=== PATIENT | male | born 1975 | race Caucasian/White ===

== ENCOUNTER 2017-09-25 14:03 | Inpatient (IN) | payer OTHER, SELFPAY ==
[2017-09-25 14:06] VITALS: BMI 26.6
[2017-09-25] MEDS ORDERED: Sodium Chloride 0.9% 1,000 ML IV STA (15:04)
[2017-09-25 15:39] LABS: VENOUS BLOOD GAS BASE EXCESS -19.5 mmol/L (0.0-2.0); VENOUS BLOOD GAS PCO2 19 mmHg (40-60); VENOUS BLOOD GAS PO2 29 mm/Hg (30-55); VENOUS BLOOD PH 7.17 (7.32-7.43)
[2017-09-25 15:49] LABS: ABG ALLEN TEST YES; ARTERIAL BLOOD GAS HCO3 11.9 mmol/L (21-28); ARTERIAL BLOOD GAS O2 SAT 102.6 % (95-98); ARTERIAL BLOOD GAS PCO2 13 mm/Hg (35-45); ARTERIAL BLOOD GAS PH 7.31 (7.35-7.45); ARTERIAL BLOOD GAS PO2 150 mm/Hg (80-100); ARTERIAL BLOOD GAS TCO2 6.9 mmol/L (22-28)
[2017-09-25] MEDS ORDERED: Thiamine 100 mg/ml Inj IV STA (15:54)
[2017-09-25 16:02] LABS: INR 1.7 (0.9-1.2); PROTHROMBIN TIME 19.2 Seconds (9.8-13.1)
[2017-09-25 16:03] LABS: PARTIAL THROMBOPLASTIN TIME 33.2 Seconds (25.6-37.1)
[2017-09-25 16:24] LABS: BASO % 0.2 % (0.0-2.0); LYMPH % 7.9 % (20.0-40.0); MEAN CELL VOLUME 75.6 fl (80.0-94.0); MEAN CORPUSCULAR HEMOGLOBIN 19.5 pg (27.0-31.0); MEAN CORPUSCULAR HGB CONC 25.8 g/dL (33.0-37.0); MEAN PLATELET VOLUME 9.4 fl (7.2-11.7); MONO # 1.1 K/uL (0.0-0.8); MONO % 9.3 % (0.0-10.0); NEUT # 9.9 K/uL (1.8-7.0); NEUT % 82.6 % (50.0-75.0); NRBC % 0.5 % (0.0-0.0); PLATELET COUNT 170 K/uL (130-400); RBC 1.34 Mil/uL (4.40-5.90)
--- NOTE | 2017-09-25 16:29 | RAD ---
HISTORY: SOB COMPARISON: No prior. FINDINGS: LUNGS: No active pulmonary disease. PLEURA: No significant pleural effusion identified, no pneumothorax apparent. CARDIOVASCULAR: Normal. OSSEOUS STRUCTURES: No significant abnormalities. VISUALIZED UPPER ABDOMEN: Normal. OTHER FINDINGS: None. IMPRESSION: No active disease.
[2017-09-25 16:38] LABS: ALBUMIN 2.3 g/dL (3.5-5.0); ALT/SGPT 27 U/L (21-72); AST/SGOT 56 U/L (17-59); BLOOD UREA NITROGEN 19 mg/dl (9-20); CALCIUM 8.4 mg/dL (8.4-10.2); GFR AFRICAN-AMERICAN > 60; GFR NON-AFRICAN AMERICAN > 60; LIPASE 491 U/L (23-300); MAGNESIUM 2.1 MG/DL (1.6-2.3)
[2017-09-25 16:40] LABS: B-TYPE NATRIURETIC PEPTIDE 212 pg/ml (0-450); HEMOGLOBIN 2.6 g/dL (12.0-18.0)
[2017-09-25 16:44] LABS: ALB/GLOB RATIO 0.7 (1.0-2.1)
[2017-09-25] MEDS ORDERED: metroNIDAZOLE 500mg/100ml NS 100 ML IVPB STA (16:50)
[2017-09-25] MEDS ORDERED: Multivitamin (MVI) 10 ML, Thiamine 100 MG in Sodium Chloride 0.9% 1,000 ML IV ONE (16:53)
[2017-09-25] MEDS ORDERED: Thiamine 100 mg/ml Inj ONE (16:58)
[2017-09-25] MEDS ORDERED: Sodium Chloride 0.9% 1,000 ML IV SCH (17:00)
[2017-09-25] MEDS ORDERED: Dextrose 5%/0.45% NS 1,000 ML IV SCH (17:15)
[2017-09-25] MEDS ORDERED: Phytonadione 10 mg/ml Inj (Adult) IV ONE (17:18)
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
[2017-09-25 18:21] LABS: SQUAMOUS EPITHIAL < 1 /hpf (0-5); URINE BACTERIA RARE (<OCC); URINE BILIRUBIN NEGATIVE (NEGATIVE); URINE BLOOD NEGATIVE (NEGATIVE); URINE CLARITY SLIGHTY-CLOUDY (Clear); URINE COLOR YELLOW (YELLOW); URINE GLUCOSE (UA) NEG (Normal); URINE LEUKOCYTE ESTERASE NEG Leu/uL (Negative); URINE NITRATE NEGATIVE (NEGATIVE); URINE PROTEIN NEGATIVE (NEGATIVE); URINE UROBILINOGEN 0.2-1.0 mg/dL (0.2-1.0)
[2017-09-25 18:22] LABS: BARBITURATES, UR NEGATIVE (NEGATIVE); BENZODIAZEPINES, UR NEGATIVE (NEGATIVE); OPIATES, UR NEGATIVE (NEGATIVE); PHENCYCLIDINE, UR NEGATIVE (NEGATIVE)
--- NOTE | 2017-09-25 18:22 | CP.CCUPN ---
CCU Subjective - Physician Review Subjective (Free Text): Critical Care Consult and ICU admission from ER for UGIB: 42M BIBA for complaints of SOB, generalized weakness, found to have HGB = 2.6 on initial bloodwork, no hypotension or hypoxemia noted and Lactate = 19. Patient admits to chronic ETOH use and drinks daily and stopped approx. 3 days ago due to not feeling well. Denies any change in BMS, i.e. no melena or hematochezia, no N/V, no recent wretching, NSAID use not takes any other meds. Review of past medical records show hospitalization at [facility] in November 2016 for Syncope and left AMA. Given Lactate elevation, underwent Code Sepsis evaluation in the ER. Other vitals and I/O's reviewed. ER VS= 130/60, 111, RR 22, Afebrile, SPO2 100 % on nasal cannula ROS: No other pertinent negs or positives on 10+ system review. PMSFH: All other Nursing and physician documentation reviewed to date; no new pertinent info noted relevant to current medical problems. CXR: ( my interp)- poor inspiratory film, no gross consolidation. IMPRESSION / MAJOR PROBLEMS NOW: 1. Severe Anemia 2 UGI Bleed: r/o ETOH-Gastritis, vs. Variceal Hemorrhage vs. other PUD / Occult CA 2. Lactate Acidosis 2 Alcoholic Ketoacidosis, doubt any Septic physiology 3. Coagulopathy 2 Alcoholic Liver disease 4. Dehydration 5. Chronic Alcoholism PLAN: 1. Start PRBCs, expect initial need for 4 units PRBCs. 2. IVF hydration with Dextrose and Saline. 3. Serial Lactates till normalized. Panculture. Hold on antibiotics unless known site of infection is suspected. 4. Serial serum ketones. 5. GI eval for appropriateness of endoscopy. Interim PPi drip and Octreotide drip. Keep NPO now for the 1st 24H. 6. Vit K, FFP. 7. Ultrasound Abdomen, r/o Pancreatic / biliary tract disease 8. Thiamine, Folic acid supplements. 9. Watch for ETOH-withdrawal symptoms. CCU Objective - Vital Signs / Intake & Output Vital Signs (Last 4 hours): Vital Signs Temp Pulse Resp BP Pulse Ox 09/25/17 17:39 100 09/25/17 17:35 98.1 F 135 H 20 139/67 100 09/25/17 17:34 98.1 F 132 H 20 139/67 100 Intake and Output (Last 8hrs): Intake & Output 09/25/17 09/25/17 09/25/17 06:59 14:59 22:59 Weight 155 lb - Physical Exam Head: Positive for: Atraumatic, Normocephalic Pupils: Positive for: PERRL Extroacular Muscles: Positive for: EOMI Conjunctiva: Positive for: Normal. Negative for: Icteric Mouth: Positive for: Dry Neck: Positive for: Normal Range of Motion. Negative for: JVD Respiratory/Chest: Positive for: Clear to Auscultation, Decreased Breath Sounds. Negative for: Accessory Muscle Use Cardiovascular: Positive for: Regular Rate and Rhythm, Tachycardic. Negative for: Murmurs, Rub Abdomen: Positive for: Normal Bowel Sounds. Negative for: Tenderness, Distention, Mass/Organomegaly Rectal: Positive for: Occult Blood Lower Extremity: Positive for: Edema, NORMAL PULSES. Negative for: CALF TENDERNESS, Cyanosis Neurological: Positive for: GCS=15, Motor Func Grossly Intact, Normal Sensory Function Skin: Positive for: Warm, Dry. Negative for: Rashes Psychiatric: Positive for: Alert, Oriented x 3, Normal Insight, Normal Concentration. Negative for: Agitated - Medications Active Medications: Active Medications Generic Name Dose Route Start Last Admin Trade Name Freq PRN Reason Stop Dose Admin Multivitamins/Vitamin C 10 ml/ 1,011 mls @ 250 mls/hr 09/25/17 16:53 Thiamine HCl 100 mg/ Sodium IV 09/25/17 20:55 Chloride .Q4H3M ONE Dextrose/Sodium Chloride 1,000 mls @ 150 mls/hr 09/25/17 17:15 Dextrose 5%/0.45% Ns 1000 Ml IV 09/26/17 17:16 .Q6H40M PRATEEK Pantoprazole Sodium 40 mg/ 100 mls @ 20 mls/hr 09/25/17 17:45 Sodium Chloride IVPB Q5H PRATEEK 8 MG/HR Octreotide Acetate 1,250 mcg/ 252.5 mls @ 10.1 mls/hr 09/25/17 17:45 Sodium Chloride IV 09/27/17 17:46 .Q24H PRATEEK 50 MCG/HR - Patient Studies Lab Studies: Lab Studies 09/25/17 09/25/17 09/25/17 Range/Units 17:11 16:19 15:40 WBC (4.8-10.8) K/uL RBC (4.40-5.90) Mil/uL Hgb (12.0-18.0) g/dL Hct (35.0-51.0) % MCV (80.0-94.0) fl MCH (27.0-31.0) pg MCHC (33.0-37.0) g/dL RDW (11.5-14.5) % Plt Count (130-400) K/uL MPV (7.2-11.7) fl Neut % (Auto) (50.0-75.0) % Lymph % (Auto) (20.0-40.0) % [place] % (Auto) (0.0-10.0) % Eos % (Auto) (0.0-4.0) % Baso % (Auto) (0.0-2.0) % Neut # (1.8-7.0) K/uL Lymph # (1.0-4.3) K/uL [place] # (0.0-0.8) K/uL Eos # (0.0-0.7) K/uL Baso # (0.0-0.2) K/uL PT (9.8-13.1) Seconds INR (0.9-1.2) APTT (25.6-37.1) Seconds pCO2 13 L* (35-45) mm/Hg pO2 150 H (30-55) mm/Hg HCO3 11.9 L (21-28) mmol/L ABG pH 7.31 L (7.35-7.45) ABG Total CO2 6.9 L (22-28) mmol/L ABG O2 Saturation 102.6 H (95-98) % ABG Base Excess -16.8 L (-2.0-3.0) mmol/L Sanjay Test Yes ABG Potassium 3.5 L (3.6-5.2) mmol/L VBG pH (7.32-7.43) VBG pCO2 (40-60) mmHg VBG HCO3 mmol/L VBG Total CO2 (22-28) mmol/L VBG O2 Sat (Calc) (40-65) % VBG Base Excess (0.0-2.0) mmol/L VBG Potassium (3.6-5.2) mmol/L A-a O2 Difference 119.0 mm/Hg Glucose 175 H (75-110) mg/dL Lactate 19.1 H* (0.7-2.1) mmol/L FiO2 40.0 % Crit Value Called To Dr jason sood Crit Value Called By Rt Crit Value Read Back Y Blood Gas Notified Time 1548 Sodium 136.0 (132-148) mmol/l Potassium (3.6-5.0) MMOL/L Chloride 101.0 (98-107) mmol/L Carbon Dioxide (22-30) mmol/L Anion Gap (10-20) BUN (9-20) mg/dl Creatinine (0.8-1.5) mg/dl Est GFR ( Amer) Est GFR (Non-Af Amer) Random Glucose (75-110) mg/dL Calcium (8.4-10.2) mg/dL Phosphorus (2.5-4.5) mg/dl Magnesium (1.6-2.3) MG/DL Total Bilirubin (0.2-1.3) mg/dl AST (17-59) U/L ALT (21-72) U/L Alkaline Phosphatase (38-126) U/L Ammonia (16-60) umo/L Troponin I (0.00-0.120) ng/mL NT-Pro-B Natriuret Pep (0-450) pg/ml Total Protein (6.3-8.2) G/DL Albumin (3.5-5.0) g/dL Globulin (2.2-3.9) gm/dL Albumin/Globulin Ratio (1.0-2.1) Lipase (23-300) U/L Arterial Blood Potassium 3.5 L (3.6-5.2) mmol/L Venous Blood Potassium (3.6-5.2) mmol/L Urine Color Cancelled Urine Clarity Cancelled Urine pH Cancelled Ur Specific [place] Cancelled Urine Protein Cancelled Urine Glucose (UA) Cancelled Urine Ketones Cancelled Urine Blood Cancelled Urine Nitrate Cancelled Urine Bilirubin Cancelled Urine Urobilinogen Cancelled Ur Leukocyte Esterase Cancelled Urine RBC (Auto) Cancelled Urine WBC Clumps (Auto) Cancelled Urine Microscopic WBC Cancelled Ur Squamous Epith Cells Cancelled Ur Transition Epith Cell Cancelled Ur Renal Epithelial Cell Cancelled Calcium Carbonate Cryst Cancelled Calcium Phos [place] (Auto) Cancelled Calcium Oxalate Crystal Cancelled Leucine Crystals Cancelled Cystine Crystals Cancelled Uric Acid Crystals Cancelled Triple Phos Crystals Cancelled Tyrosine Crystals Cancelled Other Crystals Cancelled Amorphous Sediment Cancelled Urine Bacteria Cancelled Epithelial Casts (Auto) Cancelled Fatty Casts Cancelled Hyaline Casts Cancelled Granular Casts (Auto) Cancelled Waxy Casts Cancelled Broad Casts Cancelled RBC Casts Cancelled WBC Casts Cancelled Other Casts Cancelled Urine Trichomonas Cancelled Ur Yeast w Hyphae Cancelled Urine Yeast (Budding) Cancelled Urine Sperm (Auto) Cancelled Ur Oval Fat Bodies Auto Cancelled Stool Occult Blood Positive H (NEGATIVE) Alcohol, Quantitative (0-10) mg/dl Influenza Typ A,B (EIA) (NEGATIVE) Blood Type Blood Type Confirm A POSITIVE Antibody Screen Crossmatch BBK History Checked 09/25/17 09/25/17 09/25/17 Range/Units 15:30 15:30 15:25 WBC (4.8-10.8) K/uL RBC (4.40-5.90) Mil/uL Hgb (12.0-18.0) g/dL Hct (35.0-51.0) % MCV (80.0-94.0) fl MCH (27.0-31.0) pg MCHC (33.0-37.0) g/dL RDW (11.5-14.5) % Plt Count (130-400) K/uL MPV (7.2-11.7) fl Neut % (Auto) (50.0-75.0) % Lymph % (Auto) (20.0-40.0) % [place] % (Auto) (0.0-10.0) % Eos % (Auto) (0.0-4.0) % Baso % (Auto) (0.0-2.0) % Neut # (1.8-7.0) K/uL Lymph # (1.0-4.3) K/uL [place] # (0.0-0.8) K/uL Eos # (0.0-0.7) K/uL Baso # (0.0-0.2) K/uL PT 19.2 H (9.8-13.1) Seconds INR 1.7 H (0.9-1.2) APTT 33.2 (25.6-37.1) Seconds pCO2 (35-45) mm/Hg pO2 29 L (30-55) mm/Hg HCO3 (21-28) mmol/L ABG pH (7.35-7.45) ABG Total CO2 (22-28) mmol/L ABG O2 Saturation (95-98) % ABG Base Excess (-2.0-3.0) mmol/L Sanjay Test ABG Potassium (3.6-5.2) mmol/L VBG pH 7.17 L* (7.32-7.43) VBG pCO2 19 L* (40-60) mmHg VBG HCO3 8.1 mmol/L VBG Total CO2 7.5 L (22-28) mmol/L VBG O2 Sat (Calc) 52.8 (40-65) % VBG Base Excess -19.5 L (0.0-2.0) mmol/L VBG Potassium 3.5 L (3.6-5.2) mmol/L A-a O2 Difference mm/Hg Glucose 179 H (75-110) mg/dL Lactate > 20.0 H* (0.7-2.1) mmol/L FiO2 21.0 % Crit Value Called To Dr jason sood Crit Value Called By Rt Crit Value Read Back Y Blood Gas Notified Time 1538 Sodium 137.0 (132-148) mmol/l Potassium (3.6-5.0) MMOL/L Chloride 100.0 (98-107) mmol/L Carbon Dioxide (22-30) mmol/L Anion Gap (10-20) BUN (9-20) mg/dl Creatinine (0.8-1.5) mg/dl Est GFR ( Amer) Est GFR (Non-Af Amer) Random Glucose (75-110) mg/dL Calcium (8.4-10.2) mg/dL Phosphorus (2.5-4.5) mg/dl Magnesium (1.6-2.3) MG/DL Total Bilirubin (0.2-1.3) mg/dl AST (17-59) U/L ALT (21-72) U/L Alkaline Phosphatase (38-126) U/L Ammonia (16-60) umo/L Troponin I (0.00-0.120) ng/mL NT-Pro-B Natriuret Pep (0-450) pg/ml Total Protein (6.3-8.2) G/DL Albumin (3.5-5.0) g/dL Globulin (2.2-3.9) gm/dL Albumin/Globulin Ratio (1.0-2.1) Lipase (23-300) U/L Arterial Blood Potassium (3.6-5.2) mmol/L Venous Blood Potassium 3.5 L (3.6-5.2) mmol/L Urine Color Urine Clarity Urine pH Ur Specific [place] Urine Protein Urine Glucose (UA) Urine Ketones Urine Blood Urine Nitrate Urine Bilirubin Urine Urobilinogen Ur Leukocyte Esterase Urine RBC (Auto) Urine WBC Clumps (Auto) Urine Microscopic WBC Ur Squamous Epith Cells Ur Transition Epith Cell Ur Renal Epithelial Cell Calcium Carbonate Cryst Calcium Phos [place] (Auto) Calcium Oxalate Crystal Leucine Crystals Cystine Crystals Uric Acid Crystals Triple Phos Crystals Tyrosine Crystals Other Crystals Amorphous Sediment Urine Bacteria Epithelial Casts (Auto) Fatty Casts Hyaline Casts Granular Casts (Auto) Waxy Casts Broad Casts RBC Casts WBC Casts Other Casts Urine Trichomonas Ur Yeast w Hyphae Urine Yeast (Budding) Urine Sperm (Auto) Ur Oval Fat Bodies Auto Stool Occult Blood (NEGATIVE) Alcohol, Quantitative (0-10) mg/dl Influenza Typ A,B (EIA) Negative for flu a/b (NEGATIVE) Blood Type Blood Type Confirm Antibody Screen Crossmatch BBK History Checked 09/25/17 09/25/17 09/25/17 Range/Units 15:25 15:25 15:25 WBC 12.0 H (4.8-10.8) K/uL RBC 1.34 L (4.40-5.90) Mil/uL Hgb 2.6 L* (12.0-18.0) g/dL Hct 10.1 L (35.0-51.0) % MCV 75.6 L (80.0-94.0) fl MCH 19.5 L (27.0-31.0) pg MCHC 25.8 L (33.0-37.0) g/dL RDW 22.0 H (11.5-14.5) % Plt Count 170 (130-400) K/uL MPV 9.4 (7.2-11.7) fl Neut % (Auto) 82.6 H (50.0-75.0) % Lymph % (Auto) 7.9 L (20.0-40.0) % [place] % (Auto) 9.3 (0.0-10.0) % Eos % (Auto) 0.0 (0.0-4.0) % Baso % (Auto) 0.2 (0.0-2.0) % Neut # 9.9 H (1.8-7.0) K/uL Lymph # 1.0 (1.0-4.3) K/uL [place] # 1.1 H (0.0-0.8) K/uL Eos # 0.0 (0.0-0.7) K/uL Baso # 0.0 (0.0-0.2) K/uL PT (9.8-13.1) Seconds INR (0.9-1.2) APTT (25.6-37.1) Seconds pCO2 (35-45) mm/Hg pO2 (30-55) mm/Hg HCO3 (21-28) mmol/L ABG pH (7.35-7.45) ABG Total CO2 (22-28) mmol/L ABG O2 Saturation (95-98) % ABG Base Excess (-2.0-3.0) mmol/L Sanjay Test ABG Potassium (3.6-5.2) mmol/L VBG pH (7.32-7.43) VBG pCO2 (40-60) mmHg VBG HCO3 mmol/L VBG Total CO2 (22-28) mmol/L VBG O2 Sat (Calc) (40-65) % VBG Base Excess (0.0-2.0) mmol/L VBG Potassium (3.6-5.2) mmol/L A-a O2 Difference mm/Hg Glucose (75-110) mg/dL Lactate (0.7-2.1) mmol/L FiO2 % Crit Value Called To Crit Value Called By Crit Value Read Back Blood Gas Notified Time Sodium 138 (132-148) mmol/l Potassium 3.8 (3.6-5.0) MMOL/L Chloride 105 (98-107) mmol/L Carbon Dioxide 5 L* (22-30) mmol/L Anion Gap 32 H (10-20) BUN 19 (9-20) mg/dl Creatinine 0.9 (0.8-1.5) mg/dl Est GFR ( Amer) > 60 Est GFR (Non-Af Amer) > 60 Random Glucose 164 H (75-110) mg/dL Calcium 8.4 (8.4-10.2) mg/dL Phosphorus 5.3 H (2.5-4.5) mg/dl Magnesium 2.1 (1.6-2.3) MG/DL Total Bilirubin 1.9 H (0.2-1.3) mg/dl AST 56 (17-59) U/L ALT 27 (21-72) U/L Alkaline Phosphatase 119 (38-126) U/L Ammonia 49 (16-60) umo/L Troponin I 0.0490 (0.00-0.120) ng/mL NT-Pro-B Natriuret Pep 212 (0-450) pg/ml Total Protein 5.8 L (6.3-8.2) G/DL Albumin 2.3 L (3.5-5.0) g/dL Globulin 3.5 (2.2-3.9) gm/dL Albumin/Globulin Ratio 0.7 L (1.0-2.1) Lipase 491 H (23-300) U/L Arterial Blood Potassium (3.6-5.2) mmol/L Venous Blood Potassium (3.6-5.2) mmol/L Urine Color Urine Clarity Urine pH Ur Specific [place] Urine Protein Urine Glucose (UA) Urine Ketones Urine Blood Urine Nitrate Urine Bilirubin Urine Urobilinogen Ur Leukocyte Esterase Urine RBC (Auto) Urine WBC Clumps (Auto) Urine Microscopic WBC Ur Squamous Epith Cells Ur Transition Epith Cell Ur Renal Epithelial Cell Calcium Carbonate Cryst Calcium Phos [place] (Auto) Calcium Oxalate Crystal Leucine Crystals Cystine Crystals Uric Acid Crystals Triple Phos Crystals Tyrosine Crystals Other Crystals Amorphous Sediment Urine Bacteria Epithelial Casts (Auto) Fatty Casts Hyaline Casts Granular Casts (Auto) Waxy Casts Broad Casts RBC Casts WBC Casts Other Casts Urine Trichomonas Ur Yeast w Hyphae Urine Yeast (Budding) Urine Sperm (Auto) Ur Oval Fat Bodies Auto Stool Occult Blood (NEGATIVE) Alcohol, Quantitative < 10 (0-10) mg/dl Influenza Typ A,B (EIA) (NEGATIVE) Blood Type Blood Type Confirm Antibody Screen Crossmatch BBK History Checked 09/25/17 Range/Units 15:20 WBC (4.8-10.8) K/uL RBC (4.40-5.90) Mil/uL Hgb (12.0-18.0) g/dL Hct (35.0-51.0) % MCV (80.0-94.0) fl MCH (27.0-31.0) pg MCHC (33.0-37.0) g/dL RDW (11.5-14.5) % Plt Count (130-400) K/uL MPV (7.2-11.7) fl Neut % (Auto) (50.0-75.0) % Lymph % (Auto) (20.0-40.0) % [place] % (Auto) (0.0-10.0) % Eos % (Auto) (0.0-4.0) % Baso % (Auto) (0.0-2.0) % Neut # (1.8-7.0) K/uL Lymph # (1.0-4.3) K/uL [place] # (0.0-0.8) K/uL Eos # (0.0-0.7) K/uL Baso # (0.0-0.2) K/uL PT (9.8-13.1) Seconds INR (0.9-1.2) APTT (25.6-37.1) Seconds pCO2 (35-45) mm/Hg pO2 (30-55) mm/Hg HCO3 (21-28) mmol/L ABG pH (7.35-7.45) ABG Total CO2 (22-28) mmol/L ABG O2 Saturation (95-98) % ABG Base Excess (-2.0-3.0) mmol/L Sanjay Test ABG Potassium (3.6-5.2) mmol/L VBG pH (7.32-7.43) VBG pCO2 (40-60) mmHg VBG HCO3 mmol/L VBG Total CO2 (22-28) mmol/L VBG O2 Sat (Calc) (40-65) % VBG Base Excess (0.0-2.0) mmol/L VBG Potassium (3.6-5.2) mmol/L A-a O2 Difference mm/Hg Glucose (75-110) mg/dL Lactate (0.7-2.1) mmol/L FiO2 % Crit Value Called To Crit Value Called By Crit Value Read Back Blood Gas Notified Time Sodium (132-148) mmol/l Potassium (3.6-5.0) MMOL/L Chloride (98-107) mmol/L Carbon Dioxide (22-30) mmol/L Anion Gap (10-20) BUN (9-20) mg/dl Creatinine (0.8-1.5) mg/dl Est GFR ( Amer) Est GFR (Non-Af Amer) Random Glucose (75-110) mg/dL Calcium (8.4-10.2) mg/dL Phosphorus (2.5-4.5) mg/dl Magnesium (1.6-2.3) MG/DL Total Bilirubin (0.2-1.3) mg/dl AST (17-59) U/L ALT (21-72) U/L Alkaline Phosphatase (38-126) U/L Ammonia (16-60) umo/L Troponin I (0.00-0.120) ng/mL NT-Pro-B Natriuret Pep (0-450) pg/ml Total Protein (6.3-8.2) G/DL Albumin (3.5-5.0) g/dL Globulin (2.2-3.9) gm/dL Albumin/Globulin Ratio (1.0-2.1) Lipase (23-300) U/L Arterial Blood Potassium (3.6-5.2) mmol/L Venous Blood Potassium (3.6-5.2) mmol/L Urine Color Urine Clarity Urine pH Ur Specific [place] Urine Protein Urine Glucose (UA) Urine Ketones Urine Blood Urine Nitrate Urine Bilirubin Urine Urobilinogen Ur Leukocyte Esterase Urine RBC (Auto) Urine WBC Clumps (Auto) Urine Microscopic WBC Ur Squamous Epith Cells Ur Transition Epith Cell Ur Renal Epithelial Cell Calcium Carbonate Cryst Calcium Phos [place] (Auto) Calcium Oxalate Crystal Leucine Crystals Cystine Crystals Uric Acid Crystals Triple Phos Crystals Tyrosine Crystals Other Crystals Amorphous Sediment Urine Bacteria Epithelial Casts (Auto) Fatty Casts Hyaline Casts Granular Casts (Auto) Waxy Casts Broad Casts RBC Casts WBC Casts Other Casts Urine Trichomonas Ur Yeast w Hyphae Urine Yeast (Budding) Urine Sperm (Auto) Ur Oval Fat Bodies Auto Stool Occult Blood (NEGATIVE) Alcohol, Quantitative (0-10) mg/dl Influenza Typ A,B (EIA) (NEGATIVE) Blood Type A POSITIVE Blood Type Confirm Antibody Screen Negative Crossmatch See Detail BBK History Checked No verified bt Laboratory Results - last 24 hr 09/25/17 09/25/17 09/25/17 15:20 15:25 15:25 WBC 12.0 H RBC 1.34 L Hgb 2.6 L* Hct 10.1 L MCV 75.6 L MCH 19.5 L MCHC 25.8 L RDW 22.0 H Plt Count 170 MPV 9.4 Neut % (Auto) 82.6 H Lymph % (Auto) 7.9 L [place] % (Auto) 9.3 Eos % (Auto) 0.0 Baso % (Auto) 0.2 Neut # 9.9 H Lymph # 1.0 [place] # 1.1 H Eos # 0.0 Baso # 0.0 PT INR APTT pCO2 pO2 HCO3 ABG pH ABG Total CO2 ABG O2 Saturation ABG Base Excess Sanjay Test ABG Potassium VBG pH VBG pCO2 VBG HCO3 VBG Total CO2 VBG O2 Sat (Calc) VBG Base Excess VBG Potassium A-a O2 Difference Glucose Lactate FiO2 Crit Value Called To Crit Value Called By Crit Value Read Back Blood Gas Notified Time Sodium 138 Potassium 3.8 Chloride 105 Carbon Dioxide 5 L* Anion Gap 32 H BUN 19 Creatinine 0.9 Est GFR ( Amer) > 60 Est GFR (Non-Af Amer) > 60 Random Glucose 164 H Calcium 8.4 Phosphorus 5.3 H Magnesium 2.1 Total Bilirubin 1.9 H AST 56 ALT 27 Alkaline Phosphatase 119 Ammonia Troponin I 0.0490 NT-Pro-B Natriuret Pep 212 Total Protein 5.8 L Albumin 2.3 L Globulin 3.5 Albumin/Globulin Ratio 0.7 L Lipase 491 H Arterial Blood Potassium Venous Blood Potassium Urine Color Urine Clarity Urine pH Ur Specific [place] Urine Protein Urine Glucose (UA) Urine Ketones Urine Blood Urine Nitrate Urine Bilirubin Urine Urobilinogen Ur Leukocyte Esterase Urine RBC (Auto) Urine WBC Clumps (Auto) Urine Microscopic WBC Ur Squamous Epith Cells Ur Transition Epith Cell Ur Renal Epithelial Cell Calcium Carbonate Cryst Calcium Phos [place] (Auto) Calcium Oxalate Crystal Leucine Crystals Cystine Crystals Uric Acid Crystals Triple Phos Crystals Tyrosine Crystals Other Crystals Amorphous Sediment Urine Bacteria Epithelial Casts (Auto) Fatty Casts Hyaline Casts Granular Casts (Auto) Waxy Casts Broad Casts RBC Casts WBC Casts Other Casts Urine Trichomonas Ur Yeast w Hyphae Urine Yeast (Budding) Urine Sperm (Auto) Ur Oval Fat Bodies Auto Stool Occult Blood Alcohol, Quantitative < 10 Influenza Typ A,B (EIA) Blood Type A POSITIVE Blood Type Confirm Antibody Screen Negative Crossmatch See Detail BBK History Checked No verified bt 09/25/17 09/25/17 09/25/17 15:25 15:25 15:30 WBC RBC Hgb Hct MCV MCH MCHC RDW Plt Count MPV Neut % (Auto) Lymph % (Auto) [place] % (Auto) Eos % (Auto) Baso % (Auto) Neut # Lymph # [place] # Eos # Baso # PT 19.2 H INR 1.7 H APTT 33.2 pCO2 pO2 HCO3 ABG pH ABG Total CO2 ABG O2 Saturation ABG Base Excess Sanjay Test ABG Potassium VBG pH VBG pCO2 VBG HCO3 VBG Total CO2 VBG O2 Sat (Calc) VBG Base Excess VBG Potassium A-a O2 Difference Glucose Lactate FiO2 Crit Value Called To Crit Value Called By Crit Value Read Back Blood Gas Notified Time Sodium Potassium Chloride Carbon Dioxide Anion Gap BUN Creatinine Est GFR ( Amer) Est GFR (Non-Af Amer) Random Glucose Calcium Phosphorus Magnesium Total Bilirubin AST ALT Alkaline Phosphatase Ammonia 49 Troponin I NT-Pro-B Natriuret Pep Total Protein Albumin Globulin Albumin/Globulin Ratio Lipase Arterial Blood Potassium Venous Blood Potassium Urine Color Urine Clarity Urine pH Ur Specific [place] Urine Protein Urine Glucose (UA) Urine Ketones Urine Blood Urine Nitrate Urine Bilirubin Urine Urobilinogen Ur Leukocyte Esterase Urine RBC (Auto) Urine WBC Clumps (Auto) Urine Microscopic WBC Ur Squamous Epith Cells Ur Transition Epith Cell Ur Renal Epithelial Cell Calcium Carbonate Cryst Calcium Phos [place] (Auto) Calcium Oxalate Crystal Leucine Crystals Cystine Crystals Uric Acid Crystals Triple Phos Crystals Tyrosine Crystals Other Crystals Amorphous Sediment Urine Bacteria Epithelial Casts (Auto) Fatty Casts Hyaline Casts Granular Casts (Auto) Waxy Casts Broad Casts RBC Casts WBC Casts Other Casts Urine Trichomonas Ur Yeast w Hyphae Urine Yeast (Budding) Urine Sperm (Auto) Ur Oval Fat Bodies Auto Stool Occult Blood Alcohol, Quantitative Influenza Typ A,B (EIA) Negative for flu a/b Blood Type Blood Type Confirm Antibody Screen Crossmatch BBK History Checked 09/25/17 09/25/17 09/25/17 15:30 15:40 16:19 WBC RBC Hgb Hct MCV MCH MCHC RDW Plt Count MPV Neut % (Auto) Lymph % (Auto) [place] % (Auto) Eos % (Auto) Baso % (Auto) Neut # Lymph # [place] # Eos # Baso # PT INR APTT pCO2 13 L* pO2 29 L 150 H HCO3 11.9 L ABG pH 7.31 L ABG Total CO2 6.9 L ABG O2 Saturation 102.6 H ABG Base Excess -16.8 L Sanjay Test Yes ABG Potassium 3.5 L VBG pH 7.17 L* VBG pCO2 19 L* VBG HCO3 8.1 VBG Total CO2 7.5 L VBG O2 Sat (Calc) 52.8 VBG Base Excess -19.5 L VBG Potassium 3.5 L A-a O2 Difference 119.0 Glucose 179 H 175 H Lactate > 20.0 H* 19.1 H* FiO2 21.0 40.0 Crit Value Called To Dr jason sood Crit Value Called By Rt Rt Crit Value Read Back Y Y Blood Gas Notified Time 1538 1548 Sodium 137.0 136.0 Potassium Chloride 100.0 101.0 Carbon Dioxide Anion Gap BUN Creatinine Est GFR ( Amer) Est GFR (Non-Af Amer) Random Glucose Calcium Phosphorus Magnesium Total Bilirubin AST ALT Alkaline Phosphatase Ammonia Troponin I NT-Pro-B Natriuret Pep Total Protein Albumin Globulin Albumin/Globulin Ratio Lipase Arterial Blood Potassium 3.5 L Venous Blood Potassium 3.5 L Urine Color Urine Clarity Urine pH Ur Specific [place] Urine Protein Urine Glucose (UA) Urine Ketones Urine Blood Urine Nitrate Urine Bilirubin Urine Urobilinogen Ur Leukocyte Esterase Urine RBC (Auto) Urine WBC Clumps (Auto) Urine Microscopic WBC Ur Squamous Epith Cells Ur Transition Epith Cell Ur Renal Epithelial Cell Calcium Carbonate Cryst Calcium Phos [place] (Auto) Calcium Oxalate Crystal Leucine Crystals Cystine Crystals Uric Acid Crystals Triple Phos Crystals Tyrosine Crystals Other Crystals Amorphous Sediment Urine Bacteria Epithelial Casts (Auto) Fatty Casts Hyaline Casts Granular Casts (Auto) Waxy Casts Broad Casts RBC Casts WBC Casts Other Casts Urine Trichomonas Ur Yeast w Hyphae Urine Yeast (Budding) Urine Sperm (Auto) Ur Oval Fat Bodies Auto Stool Occult Blood Alcohol, Quantitative Influenza Typ A,B (EIA) Blood Type Blood Type Confirm A POSITIVE Antibody Screen Crossmatch BBK History Checked 09/25/17 17:11 WBC RBC Hgb Hct MCV MCH MCHC RDW Plt Count MPV Neut % (Auto) Lymph % (Auto) [place] % (Auto) Eos % (Auto) Baso % (Auto) Neut # Lymph # [place] # Eos # Baso # PT INR APTT pCO2 pO2 HCO3 ABG pH ABG Total CO2 ABG O2 Saturation ABG Base Excess Sanjay Test ABG Potassium VBG pH VBG pCO2 VBG HCO3 VBG Total CO2 VBG O2 Sat (Calc) VBG Base Excess VBG Potassium A-a O2 Difference Glucose Lactate FiO2 Crit Value Called To Crit Value Called By Crit Value Read Back Blood Gas Notified Time Sodium Potassium Chloride Carbon Dioxide Anion Gap BUN Creatinine Est GFR ( Amer) Est GFR (Non-Af Amer) Random Glucose Calcium Phosphorus Magnesium Total Bilirubin AST ALT Alkaline Phosphatase Ammonia Troponin I NT-Pro-B Natriuret Pep Total Protein Albumin Globulin Albumin/Globulin Ratio Lipase Arterial Blood Potassium Venous Blood Potassium Urine Color Cancelled Urine Clarity Cancelled Urine pH Cancelled Ur Specific [place] Cancelled Urine Protein Cancelled Urine Glucose (UA) Cancelled Urine Ketones Cancelled Urine Blood Cancelled Urine Nitrate Cancelled Urine Bilirubin Cancelled Urine Urobilinogen Cancelled Ur Leukocyte Esterase Cancelled Urine RBC (Auto) Cancelled Urine WBC Clumps (Auto) Cancelled Urine Microscopic WBC Cancelled Ur Squamous Epith Cells Cancelled Ur Transition Epith Cell Cancelled Ur Renal Epithelial Cell Cancelled Calcium Carbonate Cryst Cancelled Calcium Phos [place] (Auto) Cancelled Calcium Oxalate Crystal Cancelled Leucine Crystals Cancelled Cystine Crystals Cancelled Uric Acid Crystals Cancelled Triple Phos Crystals Cancelled Tyrosine Crystals Cancelled Other Crystals Cancelled Amorphous Sediment Cancelled Urine Bacteria Cancelled Epithelial Casts (Auto) Cancelled Fatty Casts Cancelled Hyaline Casts Cancelled Granular Casts (Auto) Cancelled Waxy Casts Cancelled Broad Casts Cancelled RBC Casts Cancelled WBC Casts Cancelled Other Casts Cancelled Urine Trichomonas Cancelled Ur Yeast w Hyphae Cancelled Urine Yeast (Budding) Cancelled Urine Sperm (Auto) Cancelled Ur Oval Fat Bodies Auto Cancelled Stool Occult Blood Positive H Alcohol, Quantitative Influenza Typ A,B (EIA) Blood Type Blood Type Confirm Antibody Screen Crossmatch BBK History Checked Radiology Interpretations (Free Text): See above Critical Care Progress Note - Nutrition Nutrition: Nutrition Category Date Time Status NPO Diet [DIET] Diets 09/25/17 Dinner Active
[2017-09-25 18:30] LABS: ANISOCYTOSIS MARKED; BANDS 2 % (0-2); BASOPHIL 1 % (0-2); LYMPHOCYTE 11 % (20-50); MONOCYTE 10 % (0-10); NEUTROPHIL 76 % (42-75); PLATELET ESTIMATE NORMAL (NORMAL); POIKILOCYTOSIS MODERATE; TOTAL CELLS COUNTED 100
[2017-09-25 18:31] LABS: HYPOCHROMIC MODERATE; LARGE PLATELETS PRESENT; MICROCYTOSIS MARKED; OVALOCYTES SLIGHT; SCHISTOCYTES SLIGHT; TARGET CELLS MODERATE
[2017-09-25] MEDS ORDERED: Vancomycin 1 g Inj ONE (18:31)
--- NOTE | 2017-09-25 18:47 | US ---
HISTORY: rule out pancreatic/gallbladder disease COMPARISON: None. TECHNIQUE: Sonographic evaluation of the abdomen. FINDINGS: LIVER: Measures 19.6 cm. Portal flow could not be documented. . Unremarkeable echogenicity of the liver parenchyma. No mass. No intrahepatic bile duct dilatation. GALLBLADDER: Unremarkable. No gallstones. Gallbladder wall thickening is primarily related to the decompressed, collapsed state of the gallbladder. COMMON BILE DUCT: Measures 6.4 mm. No stones. No dilatation. PANCREAS: Cystic mass retroperitoneum in the expected location of the pancreas. The mass contains cystic components measures 11.6 x 14.2 cm and contains debris which layers in the mass. Although cystic neoplasm should be considered, infectious/inflammatory process ease are more likely. Pancreatic pseudocyst should also be considered. RIGHT KIDNEY: Measures 4.7 x 12.1cm. Normal echogenicity. No calculus, mass, or hydronephrosis. LEFT KIDNEY: Measures 5.5 x 11.5cm. Normal echogenicity. No calculus, mass, or hydronephrosis. SPLEEN: Normal in size and contour. No mass. AORTA: No aneurysmal dilatation. IVC: Unremarkable. OTHER FINDINGS: Low volume intra-abdominal ascites identified primarily about the liver, subhepatic space. IMPRESSION: 1. 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 Infectious, inflammatory etiology should be considered, less likely would be cystic pancreatic neoplasm. She 2. Hepatomegaly without focal hepatic mass. 3. Low volume incompletely visualized at ascites. 4. Portal venous flow could not be documented. Recommendations: Multiphasic CT scan be foreign after administration of contrast recommended.
--- NOTE | 2017-09-25 20:24 | CP.PCM.HP ---
History of Present Illness - History of Present Illness History of Present Illness: 42 y/o male with PMH heavy ETOH abuse was brought to ER for evaluation by family for weakness, jaundice and SOB. As per patient and family he drinks every day large quantity of hard liqueur and beer abut stopped drinking last couple of days due to weakness and because he was not feeling well.He denies any nausea, vomiting, hematemesis, melena, has had diarrhea last couple of days , denies any abdominal pain , has no appetite and feels weak. States that has noticed his color is more yellow and his abdomen is more distended than usual.Denies any chest pain , palpittaions, has SOB, denies any cough or sputum production . Denies fever , chills . In ER patient found to have Hgb 2.6 lactate 19 total melisa 1.9 INR 1.7 HCO3 5 Guaic positive Abd US ;1. 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 Infectious, inflammatory etiology should be considered, less likely would be cystic pancreatic neoplasm. She 2. Hepatomegaly without focal hepatic mass. 3. Low volume incompletely visualized at ascites. 4. Portal venous flow could not be documented. Patient with guarded prognosis to be admitted in ICU Allergies ; iodine,PCN PMH ; ETOH abuse for many years Medications ; None Surgery ; None Family history Social history ; lives in [place] in a multi family home with brother and parents, smokes rarely, drinks daily rum and beer, denies any drug abuse, does not work PMD ; None Surrogate decision maker : Brother Titus [id number] Code status: full code Present on Admission - Present on Admission Any Indicators Present on Admission: No Past Patient History - Infectious Disease Hx of Infectious Diseases: None - Past Medical History & Family History Past Medical History?: Yes Past Family History: Reviewed and not pertinent - Past Social History Smoking Status: Current Some Days Smoker Chewing Tobacco Use: No Cigar Use: No Alcohol: > 2 Drinks/Day Drugs: Denies Home Situation {Lives}: With Family Domestic Violence: Negative - CARDIAC Hx Cardiac Disorders: (Denies) - PULMONARY Hx Respiratory Disorders: (Denies) - PSYCHIATRIC Hx Substance Use: No - SURGICAL HISTORY Hx Surgeries: No Meds Allergies/Adverse Reactions: Allergies Allergy/AdvReac Type Severity Reaction Status Date / Time iodine Allergy RASH Verified 09/25/17 14:07 Penicillins Allergy RASH Verified 09/25/17 14:07 Physical Exam - Constitutional Appears: Chronically Ill Additional comments: jaundiced in mild respiratory distress - Head Exam Head Exam: ATRAUMATIC, NORMAL INSPECTION, NORMOCEPHALIC - Eye Exam Eye Exam: EOMI, Normal appearance, PERRL Pupil Exam: NORMAL ACCOMODATION - ENT Exam ENT Exam: Mucous Membranes Dry, Normal Exam - Neck Exam Neck exam: Positive for: Full Rom, Normal Inspection - Respiratory Exam Respiratory Exam: Decreased Breath Sounds (bibasilar ), Respiratory Distress. absent: Rhonchi, Wheezes - Cardiovascular Exam Cardiovascular Exam: Tachycardia, RRR, +S1, +S2. absent: JVD - GI/Abdominal Exam GI & Abdominal Exam: Distended, Normal Bowel Sounds, Soft. absent: Guarding, Rebound, Tenderness - Rectal Exam Rectal Exam: Deferred - Extremities Exam Extremities exam: Positive for: normal capillary refill, normal inspection, pedal pulses present. Negative for: calf tenderness, pedal edema - Neurological Exam Neurological exam: Alert, CN II-XII Intact, Oriented x3 - Psychiatric Exam Psychiatric exam: Normal Affect, Normal Mood - Skin Skin Exam: Dry Additional comments: jaundiced Results - Vital Signs Recent Vital Signs: Last Vital Signs Temp 96.6 F L 09/25/17 18:53 Pulse 131 H 09/25/17 18:53 Resp 34 H 09/25/17 18:53 BP 117/68 09/25/17 18:53 Pulse Ox 100 09/25/17 18:53 - Labs Result Diagrams: 09/25/17 15:25 09/25/17 15:25 Labs: Laboratory Results - last 24 hr 09/25/17 09/25/17 09/25/17 15:20 15:25 15:25 WBC 12.0 H RBC 1.34 L Hgb 2.6 L* Hct 10.1 L MCV 75.6 L MCH 19.5 L MCHC 25.8 L RDW 22.0 H Plt Count 170 MPV 9.4 Neut % (Auto) 82.6 H Lymph % (Auto) 7.9 L Noble % (Auto) 9.3 Eos % (Auto) 0.0 Baso % (Auto) 0.2 Neut # 9.9 H Lymph # 1.0 Noble # 1.1 H Eos # 0.0 Baso # 0.0 Neutrophils % (Manual) 76 H Band Neutrophils % 2 Lymphocytes % (Manual) 11 L Monocytes % (Manual) 10 Basophils % (Manual) 1 Platelet Estimate Normal Large Platelets Present Hypochromasia (manual) Moderate Poikilocytosis (manual Moderate Anisocytosis (manual) Marked Microcytosis (manual) Marked Target Cells Moderate Ovalocytes Slight Schistocytes Slight PT INR APTT pCO2 pO2 HCO3 ABG pH ABG Total CO2 ABG O2 Saturation ABG Base Excess Sanjay Test ABG Potassium VBG pH VBG pCO2 VBG HCO3 VBG Total CO2 VBG O2 Sat (Calc) VBG Base Excess VBG Potassium A-a O2 Difference Glucose Lactate FiO2 Crit Value Called To Crit Value Called By Crit Value Read Back Blood Gas Notified Time Sodium 138 Potassium 3.8 Chloride 105 Carbon Dioxide 5 L* Anion Gap 32 H BUN 19 Creatinine 0.9 Est GFR ( Amer) > 60 Est GFR (Non-Af Amer) > 60 Random Glucose 164 H Serum Osmolality Calcium 8.4 Phosphorus 5.3 H Magnesium 2.1 Total Bilirubin 1.9 H AST 56 ALT 27 Alkaline Phosphatase 119 Ammonia Troponin I 0.0490 NT-Pro-B Natriuret Pep 212 Total Protein 5.8 L Albumin 2.3 L Globulin 3.5 Albumin/Globulin Ratio 0.7 L Lipase 491 H Arterial Blood Potassium Venous Blood Potassium Urine Color Urine Clarity Urine pH Ur Specific Macy Urine Protein Urine Glucose (UA) Urine Ketones Urine Blood Urine Nitrate Urine Bilirubin Urine Urobilinogen Ur Leukocyte Esterase Urine RBC (Auto) Urine WBC Clumps (Auto) Urine Microscopic WBC Ur Squamous Epith Cells Ur Transition Epith Cell Ur Renal Epithelial Cell Calcium Carbonate Cryst Calcium Phos Courtney (Auto) Calcium Oxalate Crystal Leucine Crystals Cystine Crystals Uric Acid Crystals Triple Phos Crystals Tyrosine Crystals Other Crystals Amorphous Sediment Urine Bacteria Epithelial Casts (Auto) Fatty Casts Hyaline Casts Granular Casts (Auto) Waxy Casts Broad Casts RBC Casts WBC Casts Other Casts Urine Trichomonas Ur Yeast w Hyphae Urine Yeast (Budding) Urine Sperm (Auto) Ur Oval Fat Bodies Auto Ur Random Sodium Ur Random Potassium Stool Occult Blood Urine Opiates Screen Urine Methadone Screen Ur Barbiturates Screen Ur Phencyclidine Scrn Ur Amphetamines Screen U Benzodiazepines Scrn U Oth Cocaine Metabols U Cannabinoids Screen Alcohol, Quantitative < 10 Influenza Typ A,B (EIA) Blood Type A POSITIVE Blood Type Confirm Antibody Screen Negative Crossmatch See Detail BBK History Checked No verified bt 09/25/17 09/25/17 09/25/17 15:25 15:25 15:30 WBC RBC Hgb Hct MCV MCH MCHC RDW Plt Count MPV Neut % (Auto) Lymph % (Auto) Noble % (Auto) Eos % (Auto) Baso % (Auto) Neut # Lymph # Noble # Eos # Baso # Neutrophils % (Manual) Band Neutrophils % Lymphocytes % (Manual) Monocytes % (Manual) Basophils % (Manual) Platelet Estimate Large Platelets Hypochromasia (manual) Poikilocytosis (manual Anisocytosis (manual) Microcytosis (manual) Target Cells Ovalocytes Schistocytes PT 19.2 H INR 1.7 H APTT 33.2 pCO2 pO2 HCO3 ABG pH ABG Total CO2 ABG O2 Saturation ABG Base Excess Sanjay Test ABG Potassium VBG pH VBG pCO2 VBG HCO3 VBG Total CO2 VBG O2 Sat (Calc) VBG Base Excess VBG Potassium A-a O2 Difference Glucose Lactate FiO2 Crit Value Called To Crit Value Called By Crit Value Read Back Blood Gas Notified Time Sodium Potassium Chloride Carbon Dioxide Anion Gap BUN Creatinine Est GFR ( Amer) Est GFR (Non-Af Amer) Random Glucose Serum Osmolality Calcium Phosphorus Magnesium Total Bilirubin AST ALT Alkaline Phosphatase Ammonia 49 Troponin I NT-Pro-B Natriuret Pep Total Protein Albumin Globulin Albumin/Globulin Ratio Lipase Arterial Blood Potassium Venous Blood Potassium Urine Color Urine Clarity Urine pH Ur Specific Macy Urine Protein Urine Glucose (UA) Urine Ketones Urine Blood Urine Nitrate Urine Bilirubin Urine Urobilinogen Ur Leukocyte Esterase Urine RBC (Auto) Urine WBC Clumps (Auto) Urine Microscopic WBC Ur Squamous Epith Cells Ur Transition Epith Cell Ur Renal Epithelial Cell Calcium Carbonate Cryst Calcium Phos Courtney (Auto) Calcium Oxalate Crystal Leucine Crystals Cystine Crystals Uric Acid Crystals Triple Phos Crystals Tyrosine Crystals Other Crystals Amorphous Sediment Urine Bacteria Epithelial Casts (Auto) Fatty Casts Hyaline Casts Granular Casts (Auto) Waxy Casts Broad Casts RBC Casts WBC Casts Other Casts Urine Trichomonas Ur Yeast w Hyphae Urine Yeast (Budding) Urine Sperm (Auto) Ur Oval Fat Bodies Auto Ur Random Sodium Ur Random Potassium Stool Occult Blood Urine Opiates Screen Urine Methadone Screen Ur Barbiturates Screen Ur Phencyclidine Scrn Ur Amphetamines Screen U Benzodiazepines Scrn U Oth Cocaine Metabols U Cannabinoids Screen Alcohol, Quantitative Influenza Typ A,B (EIA) Negative for flu a/b Blood Type Blood Type Confirm Antibody Screen Crossmatch BBK History Checked 09/25/17 09/25/17 09/25/17 15:30 15:40 16:19 WBC RBC Hgb Hct MCV MCH MCHC RDW Plt Count MPV Neut % (Auto) Lymph % (Auto) Noble % (Auto) Eos % (Auto) Baso % (Auto) Neut # Lymph # Noble # Eos # Baso # Neutrophils % (Manual) Band Neutrophils % Lymphocytes % (Manual) Monocytes % (Manual) Basophils % (Manual) Platelet Estimate Large Platelets Hypochromasia (manual) Poikilocytosis (manual Anisocytosis (manual) Microcytosis (manual) Target Cells Ovalocytes Schistocytes PT INR APTT pCO2 13 L* pO2 29 L 150 H HCO3 11.9 L ABG pH 7.31 L ABG Total CO2 6.9 L ABG O2 Saturation 102.6 H ABG Base Excess -16.8 L Sanjay Test Yes ABG Potassium 3.5 L VBG pH 7.17 L* VBG pCO2 19 L* VBG HCO3 8.1 VBG Total CO2 7.5 L VBG O2 Sat (Calc) 52.8 VBG Base Excess -19.5 L VBG Potassium 3.5 L A-a O2 Difference 119.0 Glucose 179 H 175 H Lactate > 20.0 H* 19.1 H* FiO2 21.0 40.0 Crit Value Called To Dr jason sood Crit Value Called By Rt Rt Crit Value Read Back Y Y Blood Gas Notified Time 1538 1548 Sodium 137.0 136.0 Potassium Chloride 100.0 101.0 Carbon Dioxide Anion Gap BUN Creatinine Est GFR ( Amer) Est GFR (Non-Af Amer) Random Glucose Serum Osmolality Calcium Phosphorus Magnesium Total Bilirubin AST ALT Alkaline Phosphatase Ammonia Troponin I NT-Pro-B Natriuret Pep Total Protein Albumin Globulin Albumin/Globulin Ratio Lipase Arterial Blood Potassium 3.5 L Venous Blood Potassium 3.5 L Urine Color Urine Clarity Urine pH Ur Specific Macy Urine Protein Urine Glucose (UA) Urine Ketones Urine Blood Urine Nitrate Urine Bilirubin Urine Urobilinogen Ur Leukocyte Esterase Urine RBC (Auto) Urine WBC Clumps (Auto) Urine Microscopic WBC Ur Squamous Epith Cells Ur Transition Epith Cell Ur Renal Epithelial Cell Calcium Carbonate Cryst Calcium Phos Courtney (Auto) Calcium Oxalate Crystal Leucine Crystals Cystine Crystals Uric Acid Crystals Triple Phos Crystals Tyrosine Crystals Other Crystals Amorphous Sediment Urine Bacteria Epithelial Casts (Auto) Fatty Casts Hyaline Casts Granular Casts (Auto) Waxy Casts Broad Casts RBC Casts WBC Casts Other Casts Urine Trichomonas Ur Yeast w Hyphae Urine Yeast (Budding) Urine Sperm (Auto) Ur Oval Fat Bodies Auto Ur Random Sodium Ur Random Potassium Stool Occult Blood Urine Opiates Screen Urine Methadone Screen Ur Barbiturates Screen Ur Phencyclidine Scrn Ur Amphetamines Screen U Benzodiazepines Scrn U Oth Cocaine Metabols U Cannabinoids Screen Alcohol, Quantitative Influenza Typ A,B (EIA) Blood Type Blood Type Confirm A POSITIVE Antibody Screen Crossmatch BBK History Checked 09/25/17 09/25/17 09/25/17 16:53 16:53 17:11 WBC RBC Hgb Hct MCV MCH MCHC RDW Plt Count MPV Neut % (Auto) Lymph % (Auto) Noble % (Auto) Eos % (Auto) Baso % (Auto) Neut # Lymph # Noble # Eos # Baso # Neutrophils % (Manual) Band Neutrophils % Lymphocytes % (Manual) Monocytes % (Manual) Basophils % (Manual) Platelet Estimate Large Platelets Hypochromasia (manual) Poikilocytosis (manual Anisocytosis (manual) Microcytosis (manual) Target Cells Ovalocytes Schistocytes PT INR APTT pCO2 pO2 HCO3 ABG pH ABG Total CO2 ABG O2 Saturation ABG Base Excess Sanjay Test ABG Potassium VBG pH VBG pCO2 VBG HCO3 VBG Total CO2 VBG O2 Sat (Calc) VBG Base Excess VBG Potassium A-a O2 Difference Glucose Lactate FiO2 Crit Value Called To Crit Value Called By Crit Value Read Back Blood Gas Notified Time Sodium Potassium Chloride Carbon Dioxide Anion Gap BUN Creatinine Est GFR ( Amer) Est GFR (Non-Af Amer) Random Glucose Serum Osmolality 311 H Calcium Phosphorus Magnesium Total Bilirubin AST ALT Alkaline Phosphatase Ammonia Troponin I NT-Pro-B Natriuret Pep Total Protein Albumin Globulin Albumin/Globulin Ratio Lipase Arterial Blood Potassium Venous Blood Potassium Urine Color Cancelled Urine Clarity Cancelled Urine pH Cancelled Ur Specific Macy Cancelled Urine Protein Cancelled Urine Glucose (UA) Cancelled Urine Ketones Cancelled Urine Blood Cancelled Urine Nitrate Cancelled Urine Bilirubin Cancelled Urine Urobilinogen Cancelled Ur Leukocyte Esterase Cancelled Urine RBC (Auto) Cancelled Urine WBC Clumps (Auto) Cancelled Urine Microscopic WBC Cancelled Ur Squamous Epith Cells Cancelled Ur Transition Epith Cell Cancelled Ur Renal Epithelial Cell Cancelled Calcium Carbonate Cryst Cancelled Calcium Phos Courtney (Auto) Cancelled Calcium Oxalate Crystal Cancelled Leucine Crystals Cancelled Cystine Crystals Cancelled Uric Acid Crystals Cancelled Triple Phos Crystals Cancelled Tyrosine Crystals Cancelled Other Crystals Cancelled Amorphous Sediment Cancelled Urine Bacteria Cancelled Epithelial Casts (Auto) Cancelled Fatty Casts Cancelled Hyaline Casts Cancelled Granular Casts (Auto) Cancelled Waxy Casts Cancelled Broad Casts Cancelled RBC Casts Cancelled WBC Casts Cancelled Other Casts Cancelled Urine Trichomonas Cancelled Ur Yeast w Hyphae Cancelled Urine Yeast (Budding) Cancelled Urine Sperm (Auto) Cancelled Ur Oval Fat Bodies Auto Cancelled Ur Random Sodium 96 Ur Random Potassium 31.8 Stool Occult Blood Positive H Urine Opiates Screen Urine Methadone Screen Ur Barbiturates Screen Ur Phencyclidine Scrn Ur Amphetamines Screen U Benzodiazepines Scrn U Oth Cocaine Metabols U Cannabinoids Screen Alcohol, Quantitative Influenza Typ A,B (EIA) Blood Type Blood Type Confirm Antibody Screen Crossmatch BBK History Checked 09/25/17 09/25/17 17:11 18:19 WBC RBC Hgb Hct MCV MCH MCHC RDW Plt Count MPV Neut % (Auto) Lymph % (Auto) Noble % (Auto) Eos % (Auto) Baso % (Auto) Neut # Lymph # Noble # Eos # Baso # Neutrophils % (Manual) Band Neutrophils % Lymphocytes % (Manual) Monocytes % (Manual) Basophils % (Manual) Platelet Estimate Large Platelets Hypochromasia (manual) Poikilocytosis (manual Anisocytosis (manual) Microcytosis (manual) Target Cells Ovalocytes Schistocytes PT INR APTT pCO2 pO2 HCO3 ABG pH ABG Total CO2 ABG O2 Saturation ABG Base Excess Sanjay Test ABG Potassium VBG pH VBG pCO2 VBG HCO3 VBG Total CO2 VBG O2 Sat (Calc) VBG Base Excess VBG Potassium A-a O2 Difference Glucose Lactate FiO2 Crit Value Called To Crit Value Called By Crit Value Read Back Blood Gas Notified Time Sodium Potassium Chloride Carbon Dioxide Anion Gap BUN Creatinine Est GFR ( Amer) Est GFR (Non-Af Amer) Random Glucose Serum Osmolality Calcium Phosphorus Magnesium Total Bilirubin AST ALT Alkaline Phosphatase Ammonia Troponin I NT-Pro-B Natriuret Pep Total Protein Albumin Globulin Albumin/Globulin Ratio Lipase Arterial Blood Potassium Venous Blood Potassium Urine Color Yellow Urine Clarity Slighty-cloudy Urine pH 5.0 Ur Specific Macy 1.011 Urine Protein Negative Urine Glucose (UA) Neg Urine Ketones Trace Urine Blood Negative Urine Nitrate Negative Urine Bilirubin Negative Urine Urobilinogen 0.2-1.0 Ur Leukocyte Esterase Neg Urine RBC (Auto) 22 H Urine WBC Clumps (Auto) Urine Microscopic WBC 2 Ur Squamous Epith Cells < 1 Ur Transition Epith Cell Ur Renal Epithelial Cell Calcium Carbonate Cryst Calcium Phos Courtney (Auto) Calcium Oxalate Crystal Leucine Crystals Cystine Crystals Uric Acid Crystals Triple Phos Crystals Tyrosine Crystals Other Crystals Amorphous Sediment Urine Bacteria Rare Epithelial Casts (Auto) Fatty Casts Hyaline Casts 3-5 H Granular Casts (Auto) Waxy Casts Broad Casts RBC Casts WBC Casts Other Casts Urine Trichomonas Ur Yeast w Hyphae Urine Yeast (Budding) Urine Sperm (Auto) Ur Oval Fat Bodies Auto Ur Random Sodium Ur Random Potassium Stool Occult Blood Urine Opiates Screen Negative Urine Methadone Screen Negative Ur Barbiturates Screen Negative Ur Phencyclidine Scrn Negative Ur Amphetamines Screen Negative U Benzodiazepines Scrn Negative U Oth Cocaine Metabols Negative U Cannabinoids Screen Negative Alcohol, Quantitative Influenza Typ A,B (EIA) Blood Type Blood Type Confirm Antibody Screen Crossmatch BBK History Checked - Imaging and Cardiology US - abdomen Additional comment: 1. 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 Infectious, inflammatory etiology should be considered, less likely would be cystic pancreatic neoplasm. She 2. Hepatomegaly without focal hepatic mass. 3. Low volume incompletely visualized at ascites. 4. Portal venous flow could not be documented. Assessment & Plan - Assessment and Plan (Free Text) Assessment: 42 y/o male with PMH heavy ETOH abuse was brought to ER for evaluation by family for weakness, jaundice and SOB. As per patient and family he drinks every day large quantity of hard liqueur and beer abut stopped drinking last couple of days due to weakness and because he was not feeling well.He denies any nausea, vomiting, hematemesis, melena, has had diarrhea last couple of days , denies any abdominal pain , has no appetite and feels weak. States that has noticed his color is more yellow and his abdomen is more distended than usual.Denies any chest pain , palpitations, has SOB, denies any cough or sputum production . Denies fever , chills . In ER patient found to have Hgb 2.6 lactate 19 total melisa 1.9 INR 1.7 HCO3 5 Guaic positive Abd US ;1. 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 Infectious, inflammatory etiology should be considered, less likely would be cystic pancreatic neoplasm. She 2. Hepatomegaly without focal hepatic mass. 3. Low volume incompletely visualized at ascites. 4. Portal venous flow could not be documented. 1. Severe Anemia with Hgb 2.6 Will admit in ICU Guarded prognosis Start 4 unit PRBC transfusion and 2 FFP stat GI consult Given the low levels of Hgb most likely this is not an acute blood loss anemia. Will need to rule out variceal bleed, vs gastritis vs malignancy given the abdominal US result Start Octreotide drip and protonix drip Keep NPO Zofran PRN for nausea Repeat CBC in AM CT abdomen to better evaluate retroperitoneal mass 2. Alcoholism with dependency/ liver cirrhosis / coagulopathy Monitor closely for signs of withdrwala Start Thiamine, Folic acid MVI , IVF Ativan PRN for tremors and withdrawal sx 3.Lactic acidosis / dehydration / alcoholic ketoacidosis Most likely secondary to severe anemia with end organ hypoperfusion Lactic acid 19 Less likely source of infection but given the readings of complex retroperitoneal mass will send cultures CT abdomen Given Vancomycin 1 dose 3. Sepsis no clear source of infection at present ,but patient is tachycardic , WBC 12 with left shift ,lactate 19 Started IVF , Blood transfusion trend lactate 4. DVt prophylaxis SCD
[2017-09-25] MEDS: Pantoprazole 40 MG in Sodium Chloride 0.9% 100 ML IVPB SCH (21:15)
[2017-09-25 21:37] LABS: VENOUS BLOOD GAS BASE EXCESS -13.9 mmol/L (0.0-2.0); VENOUS BLOOD GAS PCO2 21 mmHg (40-60); VENOUS BLOOD GAS PO2 31 mm/Hg (30-55)
[2017-09-25 21:51] LABS: IRON 12 ug/dL (49-181)
[2017-09-25 22:00] LABS: TOTAL IRON BINDING CAPACITY 297 ug/dL (250-450)
[2017-09-25 22:30] LABS: % IRON SATURATION 4 % (20-55)
[2017-09-26] MEDS: Pantoprazole 40 MG in Sodium Chloride 0.9% 100 ML IVPB SCH ×2 (01:45→06:42)
[2017-09-26 06:48] LABS: BASO % 0.2 % (0.0-2.0); LYMPH # 1.7 K/uL (1.0-4.3); LYMPH % 10.5 % (20.0-40.0); MEAN CELL VOLUME 84.1 fl (80.0-94.0); MEAN CORPUSCULAR HGB CONC 30.9 g/dL (33.0-37.0); MEAN PLATELET VOLUME 9.4 fl (7.2-11.7); MONO # 1.9 K/uL (0.0-0.8); NEUT # 12.2 K/uL (1.8-7.0); NEUT % 77.3 % (50.0-75.0); NRBC % 1.9 % (0.0-0.0); RBC 1.91 Mil/uL (4.40-5.90); RED CELL DISTRIBUTION WIDTH 22.3 % (11.5-14.5); WHITE BLOOD COUNT 15.7 K/uL (4.8-10.8)
[2017-09-26 07:06] LABS: HEMOGLOBIN 4.9 g/dL (12.0-18.0)
[2017-09-26 07:25] LABS: ALB/GLOB RATIO 0.6 (1.0-2.1); ALBUMIN 1.8 g/dL (3.5-5.0); ALT/SGPT 34 U/L (21-72); AST/SGOT 50 U/L (17-59); BLOOD UREA NITROGEN 21 mg/dl (9-20); CALCIUM 7.4 mg/dL (8.4-10.2); GFR AFRICAN-AMERICAN > 60; GFR NON-AFRICAN AMERICAN > 60; MAGNESIUM 1.7 MG/DL (1.6-2.3)
[2017-09-26 07:32] LABS: INR 1.6 (0.9-1.2); PARTIAL THROMBOPLASTIN TIME 35.8 Seconds (25.6-37.1); PROTHROMBIN TIME 17.7 Seconds (9.8-13.1)
[2017-09-26] MEDS ORDERED: Thiamine 100 mg/ml Inj IM SCH (09:00)
--- NOTE | 2017-09-26 11:59 | CP.CCUPN ---
CCU Subjective - Physician Review Subjective (Free Text): Awake, responsive, had an episode of n/v with small amount of coffee grounds noted, denies any abdominal pain. Other vitals and I/O's reviewed. No fever spikes overnight. ROS: No other pertinent negs or positives on 10+ system review. AU Abd study results reviewed: cystic mass near pancreas. IMPRESSION / MAJOR PROBLEMS NOW: 1. Severe Anemia 2 UGI Bleed: r/o ETOH-Gastritis, vs. Variceal Hemorrhage vs. other PUD / Occult CA 2. Lactate Acidosis 2 Alcoholic Ketoacidosis, with Intrabdominal mass 3. Coagulopathy 2 Alcoholic Liver disease 4. Dehydration 5. Chronic Alcoholism PLAN: 1. 4 units PRBCs transfusion completed as well as 1 unit FFP. Repeat CBC remains pending after equilibration. 2. IVF hydration with Dextrose and Saline. 3. Serial Lactates till normalized. Panculture. Hold on antibiotics unless known site of infection is suspected. CTAP ordered to further eval intrabdominal cystic lesion / mass. 4. Serial serum ketones. 5. GI eval for appropriateness of endoscopy. Discussed with GI: PPi drip to PO BID PPi, and Octreotide stopped. advance NPO state to PO diet today as tolerated. 6. Watch for ETOH-withdrawal symptoms. CCU Objective - Vital Signs / Intake & Output Vital Signs (Last 4 hours): Vital Signs Temp Pulse Resp BP Pulse Ox 09/26/17 08:00 98.6 F 118 H 21 103/53 L 100 Intake and Output (Last 8hrs): Intake & Output 09/25/17 09/26/17 09/26/17 22:59 06:59 14:59 Intake Total 3585 Output Total 1210 Balance 2375 Intake: IV 1400 Intake, Piggyback 530 Oral 30 Blood Product 1625 Output: Urine 1160 Urine, Voided 1160 Emesis 50 Other: # Voids Urine, Voided 1 - Physical Exam Head: Positive for: Atraumatic, Normocephalic Pupils: Positive for: PERRL Extroacular Muscles: Positive for: EOMI Conjunctiva: Positive for: Normal. Negative for: Icteric Mouth: Positive for: Dry Neck: Positive for: Normal Range of Motion. Negative for: JVD Respiratory/Chest: Positive for: Clear to Auscultation, Decreased Breath Sounds. Negative for: Accessory Muscle Use Cardiovascular: Positive for: Regular Rate and Rhythm, Tachycardic. Negative for: Murmurs, Rub Abdomen: Positive for: Normal Bowel Sounds. Negative for: Tenderness, Distention, Mass/Organomegaly Rectal: Positive for: Occult Blood Lower Extremity: Positive for: Edema, NORMAL PULSES. Negative for: CALF TENDERNESS, Cyanosis Neurological: Positive for: GCS=15, Motor Func Grossly Intact, Normal Sensory Function Skin: Positive for: Warm, Dry. Negative for: Rashes Psychiatric: Positive for: Alert, Oriented x 3, Normal Insight, Normal Concentration. Negative for: Agitated - Medications Active Medications: Active Medications Generic Name Dose Route Start Last Admin Trade Name Freq PRN Reason Stop Dose Admin Dextrose/Sodium Chloride 1,000 mls @ 150 mls/hr 09/25/17 17:15 09/26/17 05:00 Dextrose 5%/0.45% Ns 1000 Ml IV 09/26/17 17:16 150 mls/hr .[id number] PRATEEK Administration Pantoprazole Sodium 40 mg/ 100 mls @ 20 mls/hr 09/25/17 17:45 09/26/17 06:42 Sodium Chloride IVPB 20 mls/hr Q5H PRATEEK Administration 8 MG/HR Octreotide Acetate 1,250 mcg/ 252.5 mls @ 10.1 mls/hr 09/25/17 17:45 20:07 Sodium Chloride IV 09/27/17 17:46 10.1 mls/hr .Q24H PRATEEK Administration 50 MCG/HR Iron Sucrose 100 mg/ Sodium 105 mls @ 105 mls/hr 09/26/17 09:00 09/26/17 09: 40 Chloride IVPB 09/28/17 09:59 105 mls/hr DAILY PRATEEK Administration Thiamine HCl 100 mg 09/26/17 09:00 Vitamin B1 Inj IM DAILY PRATEEK - Patient Studies Lab Studies: Lab Studies 09/26/17 09/26/17 09/26/17 Range/Units 07:00 07:00 05:00 WBC (4.8-10.8) K/uL RBC (4.40-5.90) Mil/uL Hgb (12.0-18.0) g/dL Hct (35.0-51.0) % MCV (80.0-94.0) fl MCH (27.0-31.0) pg MCHC (33.0-37.0) g/dL RDW (11.5-14.5) % Plt Count (130-400) K/uL MPV (7.2-11.7) fl Neut % (Auto) (50.0-75.0) % Lymph % (Auto) (20.0-40.0) % Glenn % (Auto) (0.0-10.0) % Eos % (Auto) (0.0-4.0) % Baso % (Auto) (0.0-2.0) % Neut # (1.8-7.0) K/uL Lymph # (1.0-4.3) K/uL Glenn # (0.0-0.8) K/uL Eos # (0.0-0.7) K/uL Baso # (0.0-0.2) K/uL Neutrophils % (Manual) (42-75) % Band Neutrophils % (0-2) % Lymphocytes % (Manual) (20-50) % Monocytes % (Manual) (0-10) % Basophils % (Manual) (0-2) % Platelet Estimate (NORMAL) Large Platelets Hypochromasia (manual) Poikilocytosis (manual Anisocytosis (manual) Microcytosis (manual) Target Cells Ovalocytes Schistocytes PT 17.7 H (9.8-13.1) Seconds INR 1.6 H (0.9-1.2) APTT 35.8 (25.6-37.1) Seconds pCO2 (35-45) mm/Hg pO2 (30-55) mm/Hg HCO3 (21-28) mmol/L ABG pH (7.35-7.45) ABG Total CO2 (22-28) mmol/L ABG O2 Saturation (95-98) % ABG Base Excess (-2.0-3.0) mmol/L Sanjay Test ABG Potassium (3.6-5.2) mmol/L VBG pH (7.32-7.43) VBG pCO2 (40-60) mmHg VBG HCO3 mmol/L VBG Total CO2 (22-28) mmol/L VBG O2 Sat (Calc) (40-65) % VBG Base Excess (0.0-2.0) mmol/L VBG Potassium (3.6-5.2) mmol/L A-a O2 Difference mm/Hg Glucose (75-110) mg/dL Lactate (0.7-2.1) mmol/L FiO2 % Crit Value Called To Crit Value Called By Crit Value Read Back Blood Gas Notified Time Sodium (132-148) mmol/l Potassium (3.6-5.0) MMOL/L Chloride (98-107) mmol/L Carbon Dioxide (22-30) mmol/L Anion Gap (10-20) BUN (9-20) mg/dl Creatinine (0.8-1.5) mg/dl Est GFR ( Amer) Est GFR (Non-Af Amer) Random Glucose (75-110) mg/dL Serum Osmolality (272-300) mosm/kg Lactic Acid 4.0 H (0.7-2.1) MMOL/L Calcium (8.4-10.2) mg/dL Phosphorus (2.5-4.5) mg/dl Magnesium (1.6-2.3) MG/DL Iron (49-181) ug/dL TIBC (250-450) ug/dL % Saturation (20-55) % Total Bilirubin (0.2-1.3) mg/dl AST (17-59) U/L ALT (21-72) U/L Alkaline Phosphatase (38-126) U/L Ammonia (16-60) umo/L Troponin I (0.00-0.120) ng/mL NT-Pro-B Natriuret Pep (0-450) pg/ml Total Protein (6.3-8.2) G/DL Albumin (3.5-5.0) g/dL Globulin (2.2-3.9) gm/dL Albumin/Globulin Ratio (1.0-2.1) Lipase (23-300) U/L Vitamin B12 328 (239-931) pg/mL Arterial Blood Potassium (3.6-5.2) mmol/L Venous Blood Potassium (3.6-5.2) mmol/L Urine Color Urine Clarity Urine pH Ur Specific [place] Urine Protein Urine Glucose (UA) Urine Ketones Urine Blood Urine Nitrate Urine Bilirubin Urine Urobilinogen Ur Leukocyte Esterase Urine RBC (Auto) Urine WBC Clumps (Auto) Urine Microscopic WBC Ur Squamous Epith Cells Ur Transition Epith Cell Ur Renal Epithelial Cell Calcium Carbonate Cryst Calcium Phos Courtney (Auto) Calcium Oxalate Crystal Leucine Crystals Cystine Crystals Uric Acid Crystals Triple Phos Crystals Tyrosine Crystals Other Crystals Amorphous Sediment Urine Bacteria Epithelial Casts (Auto) Fatty Casts Hyaline Casts Granular Casts (Auto) Waxy Casts Broad Casts RBC Casts WBC Casts Other Casts Urine Trichomonas Ur Yeast w Hyphae Urine Yeast (Budding) Urine Sperm (Auto) Ur Oval Fat Bodies Auto Ur Random Sodium meq/L Ur Random Potassium mmol/L Stool Occult Blood (NEGATIVE) Urine Opiates Screen (NEGATIVE) Urine Methadone Screen (NEGATIVE) Ur Barbiturates Screen (NEGATIVE) Ur Phencyclidine Scrn (NEGATIVE) Ur Amphetamines Screen (NEGATIVE) U Benzodiazepines Scrn (NEGATIVE) U Oth Cocaine Metabols (NEGATIVE) U Cannabinoids Screen (NEGATIVE) Alcohol, Quantitative (0-10) mg/dl Serum Ketones (NEGATIVE) Influenza Typ A,B (EIA) (NEGATIVE) Blood Type Blood Type Confirm Antibody Screen Crossmatch BBK History Checked 09/26/17 09/26/17 09/25/17 Range/Units 04:35 04:35 21:27 WBC 15.7 H (4.8-10.8) K/uL RBC 1.91 L (4.40-5.90) Mil/uL Hgb 4.9 L* D (12.0-18.0) g/dL Hct 16.0 L (35.0-51.0) % MCV 84.1 D (80.0-94.0) fl MCH 26.0 L (27.0-31.0) pg MCHC 30.9 L (33.0-37.0) g/dL RDW 22.3 H (11.5-14.5) % Plt Count 90 L D (130-400) K/uL MPV 9.4 (7.2-11.7) fl Neut % (Auto) 77.3 H (50.0-75.0) % Lymph % (Auto) 10.5 L (20.0-40.0) % Glenn % (Auto) 12.0 H (0.0-10.0) % Eos % (Auto) 0.0 (0.0-4.0) % Baso % (Auto) 0.2 (0.0-2.0) % Neut # 12.2 H (1.8-7.0) K/uL Lymph # 1.7 (1.0-4.3) K/uL Glenn # 1.9 H (0.0-0.8) K/uL Eos # 0.0 (0.0-0.7) K/uL Baso # 0.0 (0.0-0.2) K/uL Neutrophils % (Manual) (42-75) % Band Neutrophils % (0-2) % Lymphocytes % (Manual) (20-50) % Monocytes % (Manual) (0-10) % Basophils % (Manual) (0-2) % Platelet Estimate (NORMAL) Large Platelets Hypochromasia (manual) Poikilocytosis (manual Anisocytosis (manual) Microcytosis (manual) Target Cells Ovalocytes Schistocytes PT (9.8-13.1) Seconds INR (0.9-1.2) APTT (25.6-37.1) Seconds pCO2 (35-45) mm/Hg pO2 31 (30-55) mm/Hg HCO3 (21-28) mmol/L ABG pH (7.35-7.45) ABG Total CO2 (22-28) mmol/L ABG O2 Saturation (95-98) % ABG Base Excess (-2.0-3.0) mmol/L Sanjay Test ABG Potassium (3.6-5.2) mmol/L VBG pH 7.30 L (7.32-7.43) VBG pCO2 21 L (40-60) mmHg VBG HCO3 12.8 mmol/L VBG Total CO2 10.9 L (22-28) mmol/L VBG O2 Sat (Calc) 67.9 H (40-65) % VBG Base Excess -13.9 L (0.0-2.0) mmol/L VBG Potassium 4.5 (3.6-5.2) mmol/L A-a O2 Difference mm/Hg Glucose 125 H (75-110) mg/dL Lactate 12.5 H* (0.7-2.1) mmol/L FiO2 100.0 % Crit Value Called To Juan johnson Crit Value Called By Patria george Crit Value Read Back Y Blood Gas Notified Time 2133 Sodium 130 L 134.0 (132-148) mmol/l Potassium 4.4 (3.6-5.0) MMOL/L Chloride 106 103.0 (98-107) mmol/L Carbon Dioxide 19 L (22-30) mmol/L Anion Gap 9 L (10-20) BUN 21 H (9-20) mg/dl Creatinine 0.7 L (0.8-1.5) mg/dl Est GFR ( Amer) > 60 Est GFR (Non-Af Amer) > 60 Random Glucose 109 (75-110) mg/dL Serum Osmolality (272-300) mosm/kg Lactic Acid (0.7-2.1) MMOL/L Calcium 7.4 L (8.4-10.2) mg/dL Phosphorus 2.4 L (2.5-4.5) mg/dl Magnesium 1.7 (1.6-2.3) MG/DL Iron (49-181) ug/dL TIBC (250-450) ug/dL % Saturation (20-55) % Total Bilirubin 3.6 H (0.2-1.3) mg/dl AST 50 (17-59) U/L ALT 34 (21-72) U/L Alkaline Phosphatase 86 (38-126) U/L Ammonia (16-60) umo/L Troponin I (0.00-0.120) ng/mL NT-Pro-B Natriuret Pep (0-450) pg/ml Total Protein 4.8 L (6.3-8.2) G/DL Albumin 1.8 L D (3.5-5.0) g/dL Globulin 3.0 (2.2-3.9) gm/dL Albumin/Globulin Ratio 0.6 L (1.0-2.1) Lipase (23-300) U/L Vitamin B12 (239-931) pg/mL Arterial Blood Potassium (3.6-5.2) mmol/L Venous Blood Potassium 4.5 (3.6-5.2) mmol/L Urine Color Urine Clarity Urine pH Ur Specific [place] Urine Protein Urine Glucose (UA) Urine Ketones Urine Blood Urine Nitrate Urine Bilirubin Urine Urobilinogen Ur Leukocyte Esterase Urine RBC (Auto) Urine WBC Clumps (Auto) Urine Microscopic WBC Ur Squamous Epith Cells Ur Transition Epith Cell Ur Renal Epithelial Cell Calcium Carbonate Cryst Calcium Phos Courtney (Auto) Calcium Oxalate Crystal Leucine Crystals Cystine Crystals Uric Acid Crystals Triple Phos Crystals Tyrosine Crystals Other Crystals Amorphous Sediment Urine Bacteria Epithelial Casts (Auto) Fatty Casts Hyaline Casts Granular Casts (Auto) Waxy Casts Broad Casts RBC Casts WBC Casts Other Casts Urine Trichomonas Ur Yeast w Hyphae Urine Yeast (Budding) Urine Sperm (Auto) Ur Oval Fat Bodies Auto Ur Random Sodium meq/L Ur Random Potassium mmol/L Stool Occult Blood (NEGATIVE) Urine Opiates Screen (NEGATIVE) Urine Methadone Screen (NEGATIVE) Ur Barbiturates Screen (NEGATIVE) Ur Phencyclidine Scrn (NEGATIVE) Ur Amphetamines Screen (NEGATIVE) U Benzodiazepines Scrn (NEGATIVE) U Oth Cocaine Metabols (NEGATIVE) U Cannabinoids Screen (NEGATIVE) Alcohol, Quantitative (0-10) mg/dl Serum Ketones Negative (NEGATIVE) Influenza Typ A,B (EIA) (NEGATIVE) Blood Type Blood Type Confirm Antibody Screen Crossmatch BBK History Checked 09/25/17 09/25/17 09/25/17 Range/Units 21:03 21:03 18:19 WBC (4.8-10.8) K/uL RBC (4.40-5.90) Mil/uL Hgb (12.0-18.0) g/dL Hct (35.0-51.0) % MCV (80.0-94.0) fl MCH (27.0-31.0) pg MCHC (33.0-37.0) g/dL RDW (11.5-14.5) % Plt Count (130-400) K/uL MPV (7.2-11.7) fl Neut % (Auto) (50.0-75.0) % Lymph % (Auto) (20.0-40.0) % Glenn % (Auto) (0.0-10.0) % Eos % (Auto) (0.0-4.0) % Baso % (Auto) (0.0-2.0) % Neut # (1.8-7.0) K/uL Lymph # (1.0-4.3) K/uL Glenn # (0.0-0.8) K/uL Eos # (0.0-0.7) K/uL Baso # (0.0-0.2) K/uL Neutrophils % (Manual) (42-75) % Band Neutrophils % (0-2) % Lymphocytes % (Manual) (20-50) % Monocytes % (Manual) (0-10) % Basophils % (Manual) (0-2) % Platelet Estimate (NORMAL) Large Platelets Hypochromasia (manual) Poikilocytosis (manual Anisocytosis (manual) Microcytosis (manual) Target Cells Ovalocytes Schistocytes PT (9.8-13.1) Seconds INR (0.9-1.2) APTT (25.6-37.1) Seconds pCO2 (35-45) mm/Hg pO2 (30-55) mm/Hg HCO3 (21-28) mmol/L ABG pH (7.35-7.45) ABG Total CO2 (22-28) mmol/L ABG O2 Saturation (95-98) % ABG Base Excess (-2.0-3.0) mmol/L Sanjay Test ABG Potassium (3.6-5.2) mmol/L VBG pH (7.32-7.43) VBG pCO2 (40-60) mmHg VBG HCO3 mmol/L VBG Total CO2 (22-28) mmol/L VBG O2 Sat (Calc) (40-65) % VBG Base Excess (0.0-2.0) mmol/L VBG Potassium (3.6-5.2) mmol/L A-a O2 Difference mm/Hg Glucose (75-110) mg/dL Lactate (0.7-2.1) mmol/L FiO2 % Crit Value Called To Crit Value Called By Crit Value Read Back Blood Gas Notified Time Sodium (132-148) mmol/l Potassium (3.6-5.0) MMOL/L Chloride (98-107) mmol/L Carbon Dioxide (22-30) mmol/L Anion Gap (10-20) BUN (9-20) mg/dl Creatinine (0.8-1.5) mg/dl Est GFR ( Amer) Est GFR (Non-Af Amer) Random Glucose (75-110) mg/dL Serum Osmolality (272-300) mosm/kg Lactic Acid (0.7-2.1) MMOL/L Calcium (8.4-10.2) mg/dL Phosphorus (2.5-4.5) mg/dl Magnesium (1.6-2.3) MG/DL Iron 12 L (49-181) ug/dL TIBC 297 (250-450) ug/dL % Saturation 4 L (20-55) % Total Bilirubin (0.2-1.3) mg/dl AST (17-59) U/L ALT (21-72) U/L Alkaline Phosphatase (38-126) U/L Ammonia (16-60) umo/L Troponin I (0.00-0.120) ng/mL NT-Pro-B Natriuret Pep (0-450) pg/ml Total Protein (6.3-8.2) G/DL Albumin (3.5-5.0) g/dL Globulin (2.2-3.9) gm/dL Albumin/Globulin Ratio (1.0-2.1) Lipase (23-300) U/L Vitamin B12 (239-931) pg/mL Arterial Blood Potassium (3.6-5.2) mmol/L Venous Blood Potassium (3.6-5.2) mmol/L Urine Color Yellow Urine Clarity Slighty-cloudy Urine pH 5.0 Ur Specific [place] 1.011 Urine Protein Negative Urine Glucose (UA) Neg Urine Ketones Trace Urine Blood Negative Urine Nitrate Negative Urine Bilirubin Negative Urine Urobilinogen 0.2-1.0 Ur Leukocyte Esterase Neg Urine RBC (Auto) 22 H Urine WBC Clumps (Auto) Urine Microscopic WBC 2 Ur Squamous Epith Cells < 1 Ur Transition Epith Cell Ur Renal Epithelial Cell Calcium Carbonate Cryst Calcium Phos Courtney (Auto) Calcium Oxalate Crystal Leucine Crystals Cystine Crystals Uric Acid Crystals Triple Phos Crystals Tyrosine Crystals Other Crystals Amorphous Sediment Urine Bacteria Rare Epithelial Casts (Auto) Fatty Casts Hyaline Casts 3-5 H Granular Casts (Auto) Waxy Casts Broad Casts RBC Casts WBC Casts Other Casts Urine Trichomonas Ur Yeast w Hyphae Urine Yeast (Budding) Urine Sperm (Auto) Ur Oval Fat Bodies Auto Ur Random Sodium meq/L Ur Random Potassium mmol/L Stool Occult Blood (NEGATIVE) Urine Opiates Screen (NEGATIVE) Urine Methadone Screen (NEGATIVE) Ur Barbiturates Screen (NEGATIVE) Ur Phencyclidine Scrn (NEGATIVE) Ur Amphetamines Screen (NEGATIVE) U Benzodiazepines Scrn (NEGATIVE) U Oth Cocaine Metabols (NEGATIVE) U Cannabinoids Screen (NEGATIVE) Alcohol, Quantitative (0-10) mg/dl Serum Ketones Negative (NEGATIVE) Influenza Typ A,B (EIA) (NEGATIVE) Blood Type Blood Type Confirm Antibody Screen Crossmatch BBK History Checked 09/25/17 09/25/17 09/25/17 Range/Units 17:11 17:11 16:53 WBC (4.8-10.8) K/uL RBC (4.40-5.90) Mil/uL Hgb (12.0-18.0) g/dL Hct (35.0-51.0) % MCV (80.0-94.0) fl MCH (27.0-31.0) pg MCHC (33.0-37.0) g/dL RDW (11.5-14.5) % Plt Count (130-400) K/uL MPV (7.2-11.7) fl Neut % (Auto) (50.0-75.0) % Lymph % (Auto) (20.0-40.0) % Glenn % (Auto) (0.0-10.0) % Eos % (Auto) (0.0-4.0) % Baso % (Auto) (0.0-2.0) % Neut # (1.8-7.0) K/uL Lymph # (1.0-4.3) K/uL Glenn # (0.0-0.8) K/uL Eos # (0.0-0.7) K/uL Baso # (0.0-0.2) K/uL Neutrophils % (Manual) (42-75) % Band Neutrophils % (0-2) % Lymphocytes % (Manual) (20-50) % Monocytes % (Manual) (0-10) % Basophils % (Manual) (0-2) % Platelet Estimate (NORMAL) Large Platelets Hypochromasia (manual) Poikilocytosis (manual Anisocytosis (manual) Microcytosis (manual) Target Cells Ovalocytes Schistocytes PT (9.8-13.1) Seconds INR (0.9-1.2) APTT (25.6-37.1) Seconds pCO2 (35-45) mm/Hg pO2 (30-55) mm/Hg HCO3 (21-28) mmol/L ABG pH (7.35-7.45) ABG Total CO2 (22-28) mmol/L ABG O2 Saturation (95-98) % ABG Base Excess (-2.0-3.0) mmol/L Sanjay Test ABG Potassium (3.6-5.2) mmol/L VBG pH (7.32-7.43) VBG pCO2 (40-60) mmHg VBG HCO3 mmol/L VBG Total CO2 (22-28) mmol/L VBG O2 Sat (Calc) (40-65) % VBG Base Excess (0.0-2.0) mmol/L VBG Potassium (3.6-5.2) mmol/L A-a O2 Difference mm/Hg Glucose (75-110) mg/dL Lactate (0.7-2.1) mmol/L FiO2 % Crit Value Called To Crit Value Called By Crit Value Read Back Blood Gas Notified Time Sodium (132-148) mmol/l Potassium (3.6-5.0) MMOL/L Chloride (98-107) mmol/L Carbon Dioxide (22-30) mmol/L Anion Gap (10-20) BUN (9-20) mg/dl Creatinine (0.8-1.5) mg/dl Est GFR ( Amer) Est GFR (Non-Af Amer) Random Glucose (75-110) mg/dL Serum Osmolality 311 H (272-300) mosm/kg Lactic Acid (0.7-2.1) MMOL/L Calcium (8.4-10.2) mg/dL Phosphorus (2.5-4.5) mg/dl Magnesium (1.6-2.3) MG/DL Iron (49-181) ug/dL TIBC (250-450) ug/dL % Saturation (20-55) % Total Bilirubin (0.2-1.3) mg/dl AST (17-59) U/L ALT (21-72) U/L Alkaline Phosphatase (38-126) U/L Ammonia (16-60) umo/L Troponin I (0.00-0.120) ng/mL NT-Pro-B Natriuret Pep (0-450) pg/ml Total Protein (6.3-8.2) G/DL Albumin (3.5-5.0) g/dL Globulin (2.2-3.9) gm/dL Albumin/Globulin Ratio (1.0-2.1) Lipase (23-300) U/L Vitamin B12 (239-931) pg/mL Arterial Blood Potassium (3.6-5.2) mmol/L Venous Blood Potassium (3.6-5.2) mmol/L Urine Color Cancelled Urine Clarity Cancelled Urine pH Cancelled Ur Specific [place] Cancelled Urine Protein Cancelled Urine Glucose (UA) Cancelled Urine Ketones Cancelled Urine Blood Cancelled Urine Nitrate Cancelled Urine Bilirubin Cancelled Urine Urobilinogen Cancelled Ur Leukocyte Esterase Cancelled Urine RBC (Auto) Cancelled Urine WBC Clumps (Auto) Cancelled Urine Microscopic WBC Cancelled Ur Squamous Epith Cells Cancelled Ur Transition Epith Cell Cancelled Ur Renal Epithelial Cell Cancelled Calcium Carbonate Cryst Cancelled Calcium Phos Courtney (Auto) Cancelled Calcium Oxalate Crystal Cancelled Leucine Crystals Cancelled Cystine Crystals Cancelled Uric Acid Crystals Cancelled Triple Phos Crystals Cancelled Tyrosine Crystals Cancelled Other Crystals Cancelled Amorphous Sediment Cancelled Urine Bacteria Cancelled Epithelial Casts (Auto) Cancelled Fatty Casts Cancelled Hyaline Casts Cancelled Granular Casts (Auto) Cancelled Waxy Casts Cancelled Broad Casts Cancelled RBC Casts Cancelled WBC Casts Cancelled Other Casts Cancelled Urine Trichomonas Cancelled Ur Yeast w Hyphae Cancelled Urine Yeast (Budding) Cancelled Urine Sperm (Auto) Cancelled Ur Oval Fat Bodies Auto Cancelled Ur Random Sodium meq/L Ur Random Potassium mmol/L Stool Occult Blood Positive H (NEGATIVE) Urine Opiates Screen Negative (NEGATIVE) Urine Methadone Screen Negative (NEGATIVE) Ur Barbiturates Screen Negative (NEGATIVE) Ur Phencyclidine Scrn Negative (NEGATIVE) Ur Amphetamines Screen Negative (NEGATIVE) U Benzodiazepines Scrn Negative (NEGATIVE) U Oth Cocaine Metabols Negative (NEGATIVE) U Cannabinoids Screen Negative (NEGATIVE) Alcohol, Quantitative (0-10) mg/dl Serum Ketones (NEGATIVE) Influenza Typ A,B (EIA) (NEGATIVE) Blood Type Blood Type Confirm Antibody Screen Crossmatch BBK History Checked 09/25/17 09/25/17 09/25/17 Range/Units 16:53 16:19 15:40 WBC (4.8-10.8) K/uL RBC (4.40-5.90) Mil/uL Hgb (12.0-18.0) g/dL Hct (35.0-51.0) % MCV (80.0-94.0) fl MCH (27.0-31.0) pg MCHC (33.0-37.0) g/dL RDW (11.5-14.5) % Plt Count (130-400) K/uL MPV (7.2-11.7) fl Neut % (Auto) (50.0-75.0) % Lymph % (Auto) (20.0-40.0) % Glenn % (Auto) (0.0-10.0) % Eos % (Auto) (0.0-4.0) % Baso % (Auto) (0.0-2.0) % Neut # (1.8-7.0) K/uL Lymph # (1.0-4.3) K/uL Glenn # (0.0-0.8) K/uL Eos # (0.0-0.7) K/uL Baso # (0.0-0.2) K/uL Neutrophils % (Manual) (42-75) % Band Neutrophils % (0-2) % Lymphocytes % (Manual) (20-50) % Monocytes % (Manual) (0-10) % Basophils % (Manual) (0-2) % Platelet Estimate (NORMAL) Large Platelets Hypochromasia (manual) Poikilocytosis (manual Anisocytosis (manual) Microcytosis (manual) Target Cells Ovalocytes Schistocytes PT (9.8-13.1) Seconds INR (0.9-1.2) APTT (25.6-37.1) Seconds pCO2 13 L* (35-45) mm/Hg pO2 150 H (30-55) mm/Hg HCO3 11.9 L (21-28) mmol/L ABG pH 7.31 L (7.35-7.45) ABG Total CO2 6.9 L (22-28) mmol/L ABG O2 Saturation 102.6 H (95-98) % ABG Base Excess -16.8 L (-2.0-3.0) mmol/L Sanjay Test Yes ABG Potassium 3.5 L (3.6-5.2) mmol/L VBG pH (7.32-7.43) VBG pCO2 (40-60) mmHg VBG HCO3 mmol/L VBG Total CO2 (22-28) mmol/L VBG O2 Sat (Calc) (40-65) % VBG Base Excess (0.0-2.0) mmol/L VBG Potassium (3.6-5.2) mmol/L A-a O2 Difference 119.0 mm/Hg Glucose 175 H (75-110) mg/dL Lactate 19.1 H* (0.7-2.1) mmol/L FiO2 40.0 % Crit Value Called To Dr jason sood Crit Value Called By Rt Crit Value Read Back Y Blood Gas Notified Time 1548 Sodium 136.0 (132-148) mmol/l Potassium (3.6-5.0) MMOL/L Chloride 101.0 (98-107) mmol/L Carbon Dioxide (22-30) mmol/L Anion Gap (10-20) BUN (9-20) mg/dl Creatinine (0.8-1.5) mg/dl Est GFR ( Amer) Est GFR (Non-Af Amer) Random Glucose (75-110) mg/dL Serum Osmolality (272-300) mosm/kg Lactic Acid (0.7-2.1) MMOL/L Calcium (8.4-10.2) mg/dL Phosphorus (2.5-4.5) mg/dl Magnesium (1.6-2.3) MG/DL Iron (49-181) ug/dL TIBC (250-450) ug/dL % Saturation (20-55) % Total Bilirubin (0.2-1.3) mg/dl AST (17-59) U/L ALT (21-72) U/L Alkaline Phosphatase (38-126) U/L Ammonia (16-60) umo/L Troponin I (0.00-0.120) ng/mL NT-Pro-B Natriuret Pep (0-450) pg/ml Total Protein (6.3-8.2) G/DL Albumin (3.5-5.0) g/dL Globulin (2.2-3.9) gm/dL Albumin/Globulin Ratio (1.0-2.1) Lipase (23-300) U/L Vitamin B12 (239-931) pg/mL Arterial Blood Potassium 3.5 L (3.6-5.2) mmol/L Venous Blood Potassium (3.6-5.2) mmol/L Urine Color Urine Clarity Urine pH Ur Specific [place] Urine Protein Urine Glucose (UA) Urine Ketones Urine Blood Urine Nitrate Urine Bilirubin Urine Urobilinogen Ur Leukocyte Esterase Urine RBC (Auto) Urine WBC Clumps (Auto) Urine Microscopic WBC Ur Squamous Epith Cells Ur Transition Epith Cell Ur Renal Epithelial Cell Calcium Carbonate Cryst Calcium Phos [place]ney (Auto) Calcium Oxalate Crystal Leucine Crystals Cystine Crystals Uric Acid Crystals Triple Phos Crystals Tyrosine Crystals Other Crystals Amorphous Sediment Urine Bacteria Epithelial Casts (Auto) Fatty Casts Hyaline Casts Granular Casts (Auto) Waxy Casts Broad Casts RBC Casts WBC Casts Other Casts Urine Trichomonas Ur Yeast w Hyphae Urine Yeast (Budding) Urine Sperm (Auto) Ur Oval Fat Bodies Auto Ur Random Sodium 96 meq/L Ur Random Potassium 31.8 mmol/L Stool Occult Blood (NEGATIVE) Urine Opiates Screen (NEGATIVE) Urine Methadone Screen (NEGATIVE) Ur Barbiturates Screen (NEGATIVE) Ur Phencyclidine Scrn (NEGATIVE) Ur Amphetamines Screen (NEGATIVE) U Benzodiazepines Scrn (NEGATIVE) U Oth Cocaine Metabols (NEGATIVE) U Cannabinoids Screen (NEGATIVE) Alcohol, Quantitative (0-10) mg/dl Serum Ketones (NEGATIVE) Influenza Typ A,B (EIA) (NEGATIVE) Blood Type Blood Type Confirm A POSITIVE Antibody Screen Crossmatch BBK History Checked 09/25/17 09/25/17 09/25/17 Range/Units 15:30 15:30 15:25 WBC (4.8-10.8) K/uL RBC (4.40-5.90) Mil/uL Hgb (12.0-18.0) g/dL Hct (35.0-51.0) % MCV (80.0-94.0) fl MCH (27.0-31.0) pg MCHC (33.0-37.0) g/dL RDW (11.5-14.5) % Plt Count (130-400) K/uL MPV (7.2-11.7) fl Neut % (Auto) (50.0-75.0) % Lymph % (Auto) (20.0-40.0) % Glenn % (Auto) (0.0-10.0) % Eos % (Auto) (0.0-4.0) % Baso % (Auto) (0.0-2.0) % Neut # (1.8-7.0) K/uL Lymph # (1.0-4.3) K/uL Glenn # (0.0-0.8) K/uL Eos # (0.0-0.7) K/uL Baso # (0.0-0.2) K/uL Neutrophils % (Manual) (42-75) % Band Neutrophils % (0-2) % Lymphocytes % (Manual) (20-50) % Monocytes % (Manual) (0-10) % Basophils % (Manual) (0-2) % Platelet Estimate (NORMAL) Large Platelets Hypochromasia (manual) Poikilocytosis (manual Anisocytosis (manual) Microcytosis (manual) Target Cells Ovalocytes Schistocytes PT 19.2 H (9.8-13.1) Seconds INR 1.7 H (0.9-1.2) APTT 33.2 (25.6-37.1) Seconds pCO2 (35-45) mm/Hg pO2 29 L (30-55) mm/Hg HCO3 (21-28) mmol/L ABG pH (7.35-7.45) ABG Total CO2 (22-28) mmol/L ABG O2 Saturation (95-98) % ABG Base Excess (-2.0-3.0) mmol/L Sanjay Test ABG Potassium (3.6-5.2) mmol/L VBG pH 7.17 L* (7.32-7.43) VBG pCO2 19 L* (40-60) mmHg VBG HCO3 8.1 mmol/L VBG Total CO2 7.5 L (22-28) mmol/L VBG O2 Sat (Calc) 52.8 (40-65) % VBG Base Excess -19.5 L (0.0-2.0) mmol/L VBG Potassium 3.5 L (3.6-5.2) mmol/L A-a O2 Difference mm/Hg Glucose 179 H (75-110) mg/dL Lactate > 20.0 H* (0.7-2.1) mmol/L FiO2 21.0 % Crit Value Called To Dr jason sood Crit Value Called By Rt Crit Value Read Back Y Blood Gas Notified Time 1538 Sodium 137.0 (132-148) mmol/l Potassium (3.6-5.0) MMOL/L Chloride 100.0 (98-107) mmol/L Carbon Dioxide (22-30) mmol/L Anion Gap (10-20) BUN (9-20) mg/dl Creatinine (0.8-1.5) mg/dl Est GFR ( Amer) Est GFR (Non-Af Amer) Random Glucose (75-110) mg/dL Serum Osmolality (272-300) mosm/kg Lactic Acid (0.7-2.1) MMOL/L Calcium (8.4-10.2) mg/dL Phosphorus (2.5-4.5) mg/dl Magnesium (1.6-2.3) MG/DL Iron (49-181) ug/dL TIBC (250-450) ug/dL % Saturation (20-55) % Total Bilirubin (0.2-1.3) mg/dl AST (17-59) U/L ALT (21-72) U/L Alkaline Phosphatase (38-126) U/L Ammonia (16-60) umo/L Troponin I (0.00-0.120) ng/mL NT-Pro-B Natriuret Pep (0-450) pg/ml Total Protein (6.3-8.2) G/DL Albumin (3.5-5.0) g/dL Globulin (2.2-3.9) gm/dL Albumin/Globulin Ratio (1.0-2.1) Lipase (23-300) U/L Vitamin B12 (239-931) pg/mL Arterial Blood Potassium (3.6-5.2) mmol/L Venous Blood Potassium 3.5 L (3.6-5.2) mmol/L Urine Color Urine Clarity Urine pH Ur Specific [place] Urine Protein Urine Glucose (UA) Urine Ketones Urine Blood Urine Nitrate Urine Bilirubin Urine Urobilinogen Ur Leukocyte Esterase Urine RBC (Auto) Urine WBC Clumps (Auto) Urine Microscopic WBC Ur Squamous Epith Cells Ur Transition Epith Cell Ur Renal Epithelial Cell Calcium Carbonate Cryst Calcium Phos [place]ney (Auto) Calcium Oxalate Crystal Leucine Crystals Cystine Crystals Uric Acid Crystals Triple Phos Crystals Tyrosine Crystals Other Crystals Amorphous Sediment Urine Bacteria Epithelial Casts (Auto) Fatty Casts Hyaline Casts Granular Casts (Auto) Waxy Casts Broad Casts RBC Casts WBC Casts Other Casts Urine Trichomonas Ur Yeast w Hyphae Urine Yeast (Budding) Urine Sperm (Auto) Ur Oval Fat Bodies Auto Ur Random Sodium meq/L Ur Random Potassium mmol/L Stool Occult Blood (NEGATIVE) Urine Opiates Screen (NEGATIVE) Urine Methadone Screen (NEGATIVE) Ur Barbiturates Screen (NEGATIVE) Ur Phencyclidine Scrn (NEGATIVE) Ur Amphetamines Screen (NEGATIVE) U Benzodiazepines Scrn (NEGATIVE) U Oth Cocaine Metabols (NEGATIVE) U Cannabinoids Screen (NEGATIVE) Alcohol, Quantitative (0-10) mg/dl Serum Ketones (NEGATIVE) Influenza Typ A,B (EIA) Negative for flu a/b (NEGATIVE) Blood Type Blood Type Confirm Antibody Screen Crossmatch BBK History Checked 09/25/17 09/25/17 09/25/17 Range/Units 15:25 15:25 15:25 WBC 12.0 H (4.8-10.8) K/uL RBC 1.34 L (4.40-5.90) Mil/uL Hgb 2.6 L* (12.0-18.0) g/dL Hct 10.1 L (35.0-51.0) % MCV 75.6 L (80.0-94.0) fl MCH 19.5 L (27.0-31.0) pg MCHC 25.8 L (33.0-37.0) g/dL RDW 22.0 H (11.5-14.5) % Plt Count 170 (130-400) K/uL MPV 9.4 (7.2-11.7) fl Neut % (Auto) 82.6 H (50.0-75.0) % Lymph % (Auto) 7.9 L (20.0-40.0) % Glenn % (Auto) 9.3 (0.0-10.0) % Eos % (Auto) 0.0 (0.0-4.0) % Baso % (Auto) 0.2 (0.0-2.0) % Neut # 9.9 H (1.8-7.0) K/uL Lymph # 1.0 (1.0-4.3) K/uL Glenn # 1.1 H (0.0-0.8) K/uL Eos # 0.0 (0.0-0.7) K/uL Baso # 0.0 (0.0-0.2) K/uL Neutrophils % (Manual) 76 H (42-75) % Band Neutrophils % 2 (0-2) % Lymphocytes % (Manual) 11 L (20-50) % Monocytes % (Manual) 10 (0-10) % Basophils % (Manual) 1 (0-2) % Platelet Estimate Normal (NORMAL) Large Platelets Present Hypochromasia (manual) Moderate Poikilocytosis (manual Moderate Anisocytosis (manual) Marked Microcytosis (manual) Marked Target Cells Moderate Ovalocytes Slight Schistocytes Slight PT (9.8-13.1) Seconds INR (0.9-1.2) APTT (25.6-37.1) Seconds pCO2 (35-45) mm/Hg pO2 (30-55) mm/Hg HCO3 (21-28) mmol/L ABG pH (7.35-7.45) ABG Total CO2 (22-28) mmol/L ABG O2 Saturation (95-98) % ABG Base Excess (-2.0-3.0) mmol/L Sanjay Test ABG Potassium (3.6-5.2) mmol/L VBG pH (7.32-7.43) VBG pCO2 (40-60) mmHg VBG HCO3 mmol/L VBG Total CO2 (22-28) mmol/L VBG O2 Sat (Calc) (40-65) % VBG Base Excess (0.0-2.0) mmol/L VBG Potassium (3.6-5.2) mmol/L A-a O2 Difference mm/Hg Glucose (75-110) mg/dL Lactate (0.7-2.1) mmol/L FiO2 % Crit Value Called To Crit Value Called By Crit Value Read Back Blood Gas Notified Time Sodium 138 (132-148) mmol/l Potassium 3.8 (3.6-5.0) MMOL/L Chloride 105 (98-107) mmol/L Carbon Dioxide 5 L* (22-30) mmol/L Anion Gap 32 H (10-20) BUN 19 (9-20) mg/dl Creatinine 0.9 (0.8-1.5) mg/dl Est GFR ( Amer) > 60 Est GFR (Non-Af Amer) > 60 Random Glucose 164 H (75-110) mg/dL Serum Osmolality (272-300) mosm/kg Lactic Acid (0.7-2.1) MMOL/L Calcium 8.4 (8.4-10.2) mg/dL Phosphorus 5.3 H (2.5-4.5) mg/dl Magnesium 2.1 (1.6-2.3) MG/DL Iron (49-181) ug/dL TIBC (250-450) ug/dL % Saturation (20-55) % Total Bilirubin 1.9 H (0.2-1.3) mg/dl AST 56 (17-59) U/L ALT 27 (21-72) U/L Alkaline Phosphatase 119 (38-126) U/L Ammonia 49 (16-60) umo/L Troponin I 0.0490 (0.00-0.120) ng/mL NT-Pro-B Natriuret Pep 212 (0-450) pg/ml Total Protein 5.8 L (6.3-8.2) G/DL Albumin 2.3 L (3.5-5.0) g/dL Globulin 3.5 (2.2-3.9) gm/dL Albumin/Globulin Ratio 0.7 L (1.0-2.1) Lipase 491 H (23-300) U/L Vitamin B12 (239-931) pg/mL Arterial Blood Potassium (3.6-5.2) mmol/L Venous Blood Potassium (3.6-5.2) mmol/L Urine Color Urine Clarity Urine pH Ur Specific [place] Urine Protein Urine Glucose (UA) Urine Ketones Urine Blood Urine Nitrate Urine Bilirubin Urine Urobilinogen Ur Leukocyte Esterase Urine RBC (Auto) Urine WBC Clumps (Auto) Urine Microscopic WBC Ur Squamous Epith Cells Ur Transition Epith Cell Ur Renal Epithelial Cell Calcium Carbonate Cryst Calcium Phos [place] (Auto) Calcium Oxalate Crystal Leucine Crystals Cystine Crystals Uric Acid Crystals Triple Phos Crystals Tyrosine Crystals Other Crystals Amorphous Sediment Urine Bacteria Epithelial Casts (Auto) Fatty Casts Hyaline Casts Granular Casts (Auto) Waxy Casts Broad Casts RBC Casts WBC Casts Other Casts Urine Trichomonas Ur Yeast w Hyphae Urine Yeast (Budding) Urine Sperm (Auto) Ur Oval Fat Bodies Auto Ur Random Sodium meq/L Ur Random Potassium mmol/L Stool Occult Blood (NEGATIVE) Urine Opiates Screen (NEGATIVE) Urine Methadone Screen (NEGATIVE) Ur Barbiturates Screen (NEGATIVE) Ur Phencyclidine Scrn (NEGATIVE) Ur Amphetamines Screen (NEGATIVE) U Benzodiazepines Scrn (NEGATIVE) U Oth Cocaine Metabols (NEGATIVE) U Cannabinoids Screen (NEGATIVE) Alcohol, Quantitative < 10 (0-10) mg/dl Serum Ketones (NEGATIVE) Influenza Typ A,B (EIA) (NEGATIVE) Blood Type Blood Type Confirm Antibody Screen Crossmatch BBK History Checked 09/25/17 Range/Units 15:20 WBC (4.8-10.8) K/uL RBC (4.40-5.90) Mil/uL Hgb (12.0-18.0) g/dL Hct (35.0-51.0) % MCV (80.0-94.0) fl MCH (27.0-31.0) pg MCHC (33.0-37.0) g/dL RDW (11.5-14.5) % Plt Count (130-400) K/uL MPV (7.2-11.7) fl Neut % (Auto) (50.0-75.0) % Lymph % (Auto) (20.0-40.0) % Glenn % (Auto) (0.0-10.0) % Eos % (Auto) (0.0-4.0) % Baso % (Auto) (0.0-2.0) % Neut # (1.8-7.0) K/uL Lymph # (1.0-4.3) K/uL Glenn # (0.0-0.8) K/uL Eos # (0.0-0.7) K/uL Baso # (0.0-0.2) K/uL Neutrophils % (Manual) (42-75) % Band Neutrophils % (0-2) % Lymphocytes % (Manual) (20-50) % Monocytes % (Manual) (0-10) % Basophils % (Manual) (0-2) % Platelet Estimate (NORMAL) Large Platelets Hypochromasia (manual) Poikilocytosis (manual Anisocytosis (manual) Microcytosis (manual) Target Cells Ovalocytes Schistocytes PT (9.8-13.1) Seconds INR (0.9-1.2) APTT (25.6-37.1) Seconds pCO2 (35-45) mm/Hg pO2 (30-55) mm/Hg HCO3 (21-28) mmol/L ABG pH (7.35-7.45) ABG Total CO2 (22-28) mmol/L ABG O2 Saturation (95-98) % ABG Base Excess (-2.0-3.0) mmol/L Sanjay Test ABG Potassium (3.6-5.2) mmol/L VBG pH (7.32-7.43) VBG pCO2 (40-60) mmHg VBG HCO3 mmol/L VBG Total CO2 (22-28) mmol/L VBG O2 Sat (Calc) (40-65) % VBG Base Excess (0.0-2.0) mmol/L VBG Potassium (3.6-5.2) mmol/L A-a O2 Difference mm/Hg Glucose (75-110) mg/dL Lactate (0.7-2.1) mmol/L FiO2 % Crit Value Called To Crit Value Called By Crit Value Read Back Blood Gas Notified Time Sodium (132-148) mmol/l Potassium (3.6-5.0) MMOL/L Chloride (98-107) mmol/L Carbon Dioxide (22-30) mmol/L Anion Gap (10-20) BUN (9-20) mg/dl Creatinine (0.8-1.5) mg/dl Est GFR ( Amer) Est GFR (Non-Af Amer) Random Glucose (75-110) mg/dL Serum Osmolality (272-300) mosm/kg Lactic Acid (0.7-2.1) MMOL/L Calcium (8.4-10.2) mg/dL Phosphorus (2.5-4.5) mg/dl Magnesium (1.6-2.3) MG/DL Iron (49-181) ug/dL TIBC (250-450) ug/dL % Saturation (20-55) % Total Bilirubin (0.2-1.3) mg/dl AST (17-59) U/L ALT (21-72) U/L Alkaline Phosphatase (38-126) U/L Ammonia (16-60) umo/L Troponin I (0.00-0.120) ng/mL NT-Pro-B Natriuret Pep (0-450) pg/ml Total Protein (6.3-8.2) G/DL Albumin (3.5-5.0) g/dL Globulin (2.2-3.9) gm/dL Albumin/Globulin Ratio (1.0-2.1) Lipase (23-300) U/L Vitamin B12 (239-931) pg/mL Arterial Blood Potassium (3.6-5.2) mmol/L Venous Blood Potassium (3.6-5.2) mmol/L Urine Color Urine Clarity Urine pH Ur Specific [place] Urine Protein Urine Glucose (UA) Urine Ketones Urine Blood Urine Nitrate Urine Bilirubin Urine Urobilinogen Ur Leukocyte Esterase Urine RBC (Auto) Urine WBC Clumps (Auto) Urine Microscopic WBC Ur Squamous Epith Cells Ur Transition Epith Cell Ur Renal Epithelial Cell Calcium Carbonate Cryst Calcium Phos [place] (Auto) Calcium Oxalate Crystal Leucine Crystals Cystine Crystals Uric Acid Crystals Triple Phos Crystals Tyrosine Crystals Other Crystals Amorphous Sediment Urine Bacteria Epithelial Casts (Auto) Fatty Casts Hyaline Casts Granular Casts (Auto) Waxy Casts Broad Casts RBC Casts WBC Casts Other Casts Urine Trichomonas Ur Yeast w Hyphae Urine Yeast (Budding) Urine Sperm (Auto) Ur Oval Fat Bodies Auto Ur Random Sodium meq/L Ur Random Potassium mmol/L Stool Occult Blood (NEGATIVE) Urine Opiates Screen (NEGATIVE) Urine Methadone Screen (NEGATIVE) Ur Barbiturates Screen (NEGATIVE) Ur Phencyclidine Scrn (NEGATIVE) Ur Amphetamines Screen (NEGATIVE) U Benzodiazepines Scrn (NEGATIVE) U Oth Cocaine Metabols (NEGATIVE) U Cannabinoids Screen (NEGATIVE) Alcohol, Quantitative (0-10) mg/dl Serum Ketones (NEGATIVE) Influenza Typ A,B (EIA) (NEGATIVE) Blood Type A POSITIVE Blood Type Confirm Antibody Screen Negative Crossmatch See Detail BBK History Checked No verified bt Laboratory Results - last 24 hr 09/25/17 09/25/17 09/25/17 15:20 15:25 15:25 WBC 12.0 H RBC 1.34 L Hgb 2.6 L* Hct 10.1 L MCV 75.6 L MCH 19.5 L MCHC 25.8 L RDW 22.0 H Plt Count 170 MPV 9.4 Neut % (Auto) 82.6 H Lymph % (Auto) 7.9 L Glenn % (Auto) 9.3 Eos % (Auto) 0.0 Baso % (Auto) 0.2 Neut # 9.9 H Lymph # 1.0 Glenn # 1.1 H Eos # 0.0 Baso # 0.0 Neutrophils % (Manual) 76 H Band Neutrophils % 2 Lymphocytes % (Manual) 11 L Monocytes % (Manual) 10 Basophils % (Manual) 1 Platelet Estimate Normal Large Platelets Present Hypochromasia (manual) Moderate Poikilocytosis (manual Moderate Anisocytosis (manual) Marked Microcytosis (manual) Marked Target Cells Moderate Ovalocytes Slight Schistocytes Slight PT INR APTT pCO2 pO2 HCO3 ABG pH ABG Total CO2 ABG O2 Saturation ABG Base Excess Sanjay Test ABG Potassium VBG pH VBG pCO2 VBG HCO3 VBG Total CO2 VBG O2 Sat (Calc) VBG Base Excess VBG Potassium A-a O2 Difference Glucose Lactate FiO2 Crit Value Called To Crit Value Called By Crit Value Read Back Blood Gas Notified Time Sodium 138 Potassium 3.8 Chloride 105 Carbon Dioxide 5 L* Anion Gap 32 H BUN 19 Creatinine 0.9 Est GFR ( Amer) > 60 Est GFR (Non-Af Amer) > 60 Random Glucose 164 H Serum Osmolality Lactic Acid Calcium 8.4 Phosphorus 5.3 H Magnesium 2.1 Iron TIBC % Saturation Total Bilirubin 1.9 H AST 56 ALT 27 Alkaline Phosphatase 119 Ammonia Troponin I 0.0490 NT-Pro-B Natriuret Pep 212 Total Protein 5.8 L Albumin 2.3 L Globulin 3.5 Albumin/Globulin Ratio 0.7 L Lipase 491 H Vitamin B12 Arterial Blood Potassium Venous Blood Potassium Urine Color Urine Clarity Urine pH Ur Specific [place] Urine Protein Urine Glucose (UA) Urine Ketones Urine Blood Urine Nitrate Urine Bilirubin Urine Urobilinogen Ur Leukocyte Esterase Urine RBC (Auto) Urine WBC Clumps (Auto) Urine Microscopic WBC Ur Squamous Epith Cells Ur Transition Epith Cell Ur Renal Epithelial Cell Calcium Carbonate Cryst Calcium Phos [place] (Auto) Calcium Oxalate Crystal Leucine Crystals Cystine Crystals Uric Acid Crystals Triple Phos Crystals Tyrosine Crystals Other Crystals Amorphous Sediment Urine Bacteria Epithelial Casts (Auto) Fatty Casts Hyaline Casts Granular Casts (Auto) Waxy Casts Broad Casts RBC Casts WBC Casts Other Casts Urine Trichomonas Ur Yeast w Hyphae Urine Yeast (Budding) Urine Sperm (Auto) Ur Oval Fat Bodies Auto Ur Random Sodium Ur Random Potassium Stool Occult Blood Urine Opiates Screen Urine Methadone Screen Ur Barbiturates Screen Ur Phencyclidine Scrn Ur Amphetamines Screen U Benzodiazepines Scrn U Oth Cocaine Metabols U Cannabinoids Screen Alcohol, Quantitative < 10 Serum Ketones Influenza Typ A,B (EIA) Blood Type A POSITIVE Blood Type Confirm Antibody Screen Negative Crossmatch See Detail BBK History Checked No verified bt 09/25/17 09/25/17 09/25/17 15:25 15:25 15:30 WBC RBC Hgb Hct MCV MCH MCHC RDW Plt Count MPV Neut % (Auto) Lymph % (Auto) Glenn % (Auto) Eos % (Auto) Baso % (Auto) Neut # Lymph # Glenn # Eos # Baso # Neutrophils % (Manual) Band Neutrophils % Lymphocytes % (Manual) Monocytes % (Manual) Basophils % (Manual) Platelet Estimate Large Platelets Hypochromasia (manual) Poikilocytosis (manual Anisocytosis (manual) Microcytosis (manual) Target Cells Ovalocytes Schistocytes PT 19.2 H INR 1.7 H APTT 33.2 pCO2 pO2 HCO3 ABG pH ABG Total CO2 ABG O2 Saturation ABG Base Excess Sanjay Test ABG Potassium VBG pH VBG pCO2 VBG HCO3 VBG Total CO2 VBG O2 Sat (Calc) VBG Base Excess VBG Potassium A-a O2 Difference Glucose Lactate FiO2 Crit Value Called To Crit Value Called By Crit Value Read Back Blood Gas Notified Time Sodium Potassium Chloride Carbon Dioxide Anion Gap BUN Creatinine Est GFR ( Amer) Est GFR (Non-Af Amer) Random Glucose Serum Osmolality Lactic Acid Calcium Phosphorus Magnesium Iron TIBC % Saturation Total Bilirubin AST ALT Alkaline Phosphatase Ammonia 49 Troponin I NT-Pro-B Natriuret Pep Total Protein Albumin Globulin Albumin/Globulin Ratio Lipase Vitamin B12 Arterial Blood Potassium Venous Blood Potassium Urine Color Urine Clarity Urine pH Ur Specific [place] Urine Protein Urine Glucose (UA) Urine Ketones Urine Blood Urine Nitrate Urine Bilirubin Urine Urobilinogen Ur Leukocyte Esterase Urine RBC (Auto) Urine WBC Clumps (Auto) Urine Microscopic WBC Ur Squamous Epith Cells Ur Transition Epith Cell Ur Renal Epithelial Cell Calcium Carbonate Cryst Calcium Phos [place] (Auto) Calcium Oxalate Crystal Leucine Crystals Cystine Crystals Uric Acid Crystals Triple Phos Crystals Tyrosine Crystals Other Crystals Amorphous Sediment Urine Bacteria Epithelial Casts (Auto) Fatty Casts Hyaline Casts Granular Casts (Auto) Waxy Casts Broad Casts RBC Casts WBC Casts Other Casts Urine Trichomonas Ur Yeast w Hyphae Urine Yeast (Budding) Urine Sperm (Auto) Ur Oval Fat Bodies Auto Ur Random Sodium Ur Random Potassium Stool Occult Blood Urine Opiates Screen Urine Methadone Screen Ur Barbiturates Screen Ur Phencyclidine Scrn Ur Amphetamines Screen U Benzodiazepines Scrn U Oth Cocaine Metabols U Cannabinoids Screen Alcohol, Quantitative Serum Ketones Influenza Typ A,B (EIA) Negative for flu a/b Blood Type Blood Type Confirm Antibody Screen Crossmatch BBK History Checked 09/25/17 09/25/17 09/25/17 15:30 15:40 16:19 WBC RBC Hgb Hct MCV MCH MCHC RDW Plt Count MPV Neut % (Auto) Lymph % (Auto) Glenn % (Auto) Eos % (Auto) Baso % (Auto) Neut # Lymph # Glenn # Eos # Baso # Neutrophils % (Manual) Band Neutrophils % Lymphocytes % (Manual) Monocytes % (Manual) Basophils % (Manual) Platelet Estimate Large Platelets Hypochromasia (manual) Poikilocytosis (manual Anisocytosis (manual) Microcytosis (manual) Target Cells Ovalocytes Schistocytes PT INR APTT pCO2 13 L* pO2 29 L 150 H HCO3 11.9 L ABG pH 7.31 L ABG Total CO2 6.9 L ABG O2 Saturation 102.6 H ABG Base Excess -16.8 L Sanjay Test Yes ABG Potassium 3.5 L VBG pH 7.17 L* VBG pCO2 19 L* VBG HCO3 8.1 VBG Total CO2 7.5 L VBG O2 Sat (Calc) 52.8 VBG Base Excess -19.5 L VBG Potassium 3.5 L A-a O2 Difference 119.0 Glucose 179 H 175 H Lactate > 20.0 H* 19.1 H* FiO2 21.0 40.0 Crit Value Called To Dr jason sood Crit Value Called By Rt Rt Crit Value Read Back Y Y Blood Gas Notified Time 1538 1548 Sodium 137.0 136.0 Potassium Chloride 100.0 101.0 Carbon Dioxide Anion Gap BUN Creatinine Est GFR ( Amer) Est GFR (Non-Af Amer) Random Glucose Serum Osmolality Lactic Acid Calcium Phosphorus Magnesium Iron TIBC % Saturation Total Bilirubin AST ALT Alkaline Phosphatase Ammonia Troponin I NT-Pro-B Natriuret Pep Total Protein Albumin Globulin Albumin/Globulin Ratio Lipase Vitamin B12 Arterial Blood Potassium 3.5 L Venous Blood Potassium 3.5 L Urine Color Urine Clarity Urine pH Ur Specific [place] Urine Protein Urine Glucose (UA) Urine Ketones Urine Blood Urine Nitrate Urine Bilirubin Urine Urobilinogen Ur Leukocyte Esterase Urine RBC (Auto) Urine WBC Clumps (Auto) Urine Microscopic WBC Ur Squamous Epith Cells Ur Transition Epith Cell Ur Renal Epithelial Cell Calcium Carbonate Cryst Calcium Phos [place] (Auto) Calcium Oxalate Crystal Leucine Crystals Cystine Crystals Uric Acid Crystals Triple Phos Crystals Tyrosine Crystals Other Crystals Amorphous Sediment Urine Bacteria Epithelial Casts (Auto) Fatty Casts Hyaline Casts Granular Casts (Auto) Waxy Casts Broad Casts RBC Casts WBC Casts Other Casts Urine Trichomonas Ur Yeast w Hyphae Urine Yeast (Budding) Urine Sperm (Auto) Ur Oval Fat Bodies Auto Ur Random Sodium Ur Random Potassium Stool Occult Blood Urine Opiates Screen Urine Methadone Screen Ur Barbiturates Screen Ur Phencyclidine Scrn Ur Amphetamines Screen U Benzodiazepines Scrn U Oth Cocaine Metabols U Cannabinoids Screen Alcohol, Quantitative Serum Ketones Influenza Typ A,B (EIA) Blood Type Blood Type Confirm A POSITIVE Antibody Screen Crossmatch BBK History Checked 09/25/17 09/25/17 09/25/17 16:53 16:53 17:11 WBC RBC Hgb Hct MCV MCH MCHC RDW Plt Count MPV Neut % (Auto) Lymph % (Auto) Glenn % (Auto) Eos % (Auto) Baso % (Auto) Neut # Lymph # Glenn # Eos # Baso # Neutrophils % (Manual) Band Neutrophils % Lymphocytes % (Manual) Monocytes % (Manual) Basophils % (Manual) Platelet Estimate Large Platelets Hypochromasia (manual) Poikilocytosis (manual Anisocytosis (manual) Microcytosis (manual) Target Cells Ovalocytes Schistocytes PT INR APTT pCO2 pO2 HCO3 ABG pH ABG Total CO2 ABG O2 Saturation ABG Base Excess Sanjay Test ABG Potassium VBG pH VBG pCO2 VBG HCO3 VBG Total CO2 VBG O2 Sat (Calc) VBG Base Excess VBG Potassium A-a O2 Difference Glucose Lactate FiO2 Crit Value Called To Crit Value Called By Crit Value Read Back Blood Gas Notified Time Sodium Potassium Chloride Carbon Dioxide Anion Gap BUN Creatinine Est GFR ( Amer) Est GFR (Non-Af Amer) Random Glucose Serum Osmolality 311 H Lactic Acid Calcium Phosphorus Magnesium Iron TIBC % Saturation Total Bilirubin AST ALT Alkaline Phosphatase Ammonia Troponin I NT-Pro-B Natriuret Pep Total Protein Albumin Globulin Albumin/Globulin Ratio Lipase Vitamin B12 Arterial Blood Potassium Venous Blood Potassium Urine Color Cancelled Urine Clarity Cancelled Urine pH Cancelled Ur Specific [place] Cancelled Urine Protein Cancelled Urine Glucose (UA) Cancelled Urine Ketones Cancelled Urine Blood Cancelled Urine Nitrate Cancelled Urine Bilirubin Cancelled Urine Urobilinogen Cancelled Ur Leukocyte Esterase Cancelled Urine RBC (Auto) Cancelled Urine WBC Clumps (Auto) Cancelled Urine Microscopic WBC Cancelled Ur Squamous Epith Cells Cancelled Ur Transition Epith Cell Cancelled Ur Renal Epithelial Cell Cancelled Calcium Carbonate Cryst Cancelled Calcium Phos Courtney (Auto) Cancelled Calcium Oxalate Crystal Cancelled Leucine Crystals Cancelled Cystine Crystals Cancelled Uric Acid Crystals Cancelled Triple Phos Crystals Cancelled Tyrosine Crystals Cancelled Other Crystals Cancelled Amorphous Sediment Cancelled Urine Bacteria Cancelled Epithelial Casts (Auto) Cancelled Fatty Casts Cancelled Hyaline Casts Cancelled Granular Casts (Auto) Cancelled Waxy Casts Cancelled Broad Casts Cancelled RBC Casts Cancelled WBC Casts Cancelled Other Casts Cancelled Urine Trichomonas Cancelled Ur Yeast w Hyphae Cancelled Urine Yeast (Budding) Cancelled Urine Sperm (Auto) Cancelled Ur Oval Fat Bodies Auto Cancelled Ur Random Sodium 96 Ur Random Potassium 31.8 Stool Occult Blood Positive H Urine Opiates Screen Urine Methadone Screen Ur Barbiturates Screen Ur Phencyclidine Scrn Ur Amphetamines Screen U Benzodiazepines Scrn U Oth Cocaine Metabols U Cannabinoids Screen Alcohol, Quantitative Serum Ketones Influenza Typ A,B (EIA) Blood Type Blood Type Confirm Antibody Screen Crossmatch BBK History Checked 09/25/17 09/25/17 09/25/17 17:11 18:19 21:03 WBC RBC Hgb Hct MCV MCH MCHC RDW Plt Count MPV Neut % (Auto) Lymph % (Auto) Glenn % (Auto) Eos % (Auto) Baso % (Auto) Neut # Lymph # Glenn # Eos # Baso # Neutrophils % (Manual) Band Neutrophils % Lymphocytes % (Manual) Monocytes % (Manual) Basophils % (Manual) Platelet Estimate Large Platelets Hypochromasia (manual) Poikilocytosis (manual Anisocytosis (manual) Microcytosis (manual) Target Cells Ovalocytes Schistocytes PT INR APTT pCO2 pO2 HCO3 ABG pH ABG Total CO2 ABG O2 Saturation ABG Base Excess Sanjay Test ABG Potassium VBG pH VBG pCO2 VBG HCO3 VBG Total CO2 VBG O2 Sat (Calc) VBG Base Excess VBG Potassium A-a O2 Difference Glucose Lactate FiO2 Crit Value Called To Crit Value Called By Crit Value Read Back Blood Gas Notified Time Sodium Potassium Chloride Carbon Dioxide Anion Gap BUN Creatinine Est GFR ( Amer) Est GFR (Non-Af Amer) Random Glucose Serum Osmolality Lactic Acid Calcium Phosphorus Magnesium Iron TIBC % Saturation Total Bilirubin AST ALT Alkaline Phosphatase Ammonia Troponin I NT-Pro-B Natriuret Pep Total Protein Albumin Globulin Albumin/Globulin Ratio Lipase Vitamin B12 Arterial Blood Potassium Venous Blood Potassium Urine Color Yellow Urine Clarity Slighty-cloudy Urine pH 5.0 Ur Specific [place] 1.011 Urine Protein Negative Urine Glucose (UA) Neg Urine Ketones Trace Urine Blood Negative Urine Nitrate Negative Urine Bilirubin Negative Urine Urobilinogen 0.2-1.0 Ur Leukocyte Esterase Neg Urine RBC (Auto) 22 H Urine WBC Clumps (Auto) Urine Microscopic WBC 2 Ur Squamous Epith Cells < 1 Ur Transition Epith Cell Ur Renal Epithelial Cell Calcium Carbonate Cryst Calcium Phos Courtney (Auto) Calcium Oxalate Crystal Leucine Crystals Cystine Crystals Uric Acid Crystals Triple Phos Crystals Tyrosine Crystals Other Crystals Amorphous Sediment Urine Bacteria Rare Epithelial Casts (Auto) Fatty Casts Hyaline Casts 3-5 H Granular Casts (Auto) Waxy Casts Broad Casts RBC Casts WBC Casts Other Casts Urine Trichomonas Ur Yeast w Hyphae Urine Yeast (Budding) Urine Sperm (Auto) Ur Oval Fat Bodies Auto Ur Random Sodium Ur Random Potassium Stool Occult Blood Urine Opiates Screen Negative Urine Methadone Screen Negative Ur Barbiturates Screen Negative Ur Phencyclidine Scrn Negative Ur Amphetamines Screen Negative U Benzodiazepines Scrn Negative U Oth Cocaine Metabols Negative U Cannabinoids Screen Negative Alcohol, Quantitative Serum Ketones Negative Influenza Typ A,B (EIA) Blood Type Blood Type Confirm Antibody Screen Crossmatch BBK History Checked 09/25/17 09/25/17 09/26/17 21:03 21:27 04:35 WBC 15.7 H RBC 1.91 L Hgb 4.9 L* D Hct 16.0 L MCV 84.1 D MCH 26.0 L MCHC 30.9 L RDW 22.3 H Plt Count 90 L D MPV 9.4 Neut % (Auto) 77.3 H Lymph % (Auto) 10.5 L Glenn % (Auto) 12.0 H Eos % (Auto) 0.0 Baso % (Auto) 0.2 Neut # 12.2 H Lymph # 1.7 Glenn # 1.9 H Eos # 0.0 Baso # 0.0 Neutrophils % (Manual) Band Neutrophils % Lymphocytes % (Manual) Monocytes % (Manual) Basophils % (Manual) Platelet Estimate Large Platelets Hypochromasia (manual) Poikilocytosis (manual Anisocytosis (manual) Microcytosis (manual) Target Cells Ovalocytes Schistocytes PT INR APTT pCO2 pO2 31 HCO3 ABG pH ABG Total CO2 ABG O2 Saturation ABG Base Excess Sanjay Test ABG Potassium VBG pH 7.30 L VBG pCO2 21 L VBG HCO3 12.8 VBG Total CO2 10.9 L VBG O2 Sat (Calc) 67.9 H VBG Base Excess -13.9 L VBG Potassium 4.5 A-a O2 Difference Glucose 125 H Lactate 12.5 H* FiO2 100.0 Crit Value Called To Juan johnson Crit Value Called By Patria george Crit Value Read Back Y Blood Gas Notified Time 2132 Sodium 134.0 Potassium Chloride 103.0 Carbon Dioxide Anion Gap BUN Creatinine Est GFR ( Amer) Est GFR (Non-Af Amer) Random Glucose Serum Osmolality Lactic Acid Calcium Phosphorus Magnesium Iron 12 L TIBC 297 % Saturation 4 L Total Bilirubin AST ALT Alkaline Phosphatase Ammonia Troponin I NT-Pro-B Natriuret Pep Total Protein Albumin Globulin Albumin/Globulin Ratio Lipase Vitamin B12 Arterial Blood Potassium Venous Blood Potassium 4.5 Urine Color Urine Clarity Urine pH Ur Specific [place] Urine Protein Urine Glucose (UA) Urine Ketones Urine Blood Urine Nitrate Urine Bilirubin Urine Urobilinogen Ur Leukocyte Esterase Urine RBC (Auto) Urine WBC Clumps (Auto) Urine Microscopic WBC Ur Squamous Epith Cells Ur Transition Epith Cell Ur Renal Epithelial Cell Calcium Carbonate Cryst Calcium Phos Courtney (Auto) Calcium Oxalate Crystal Leucine Crystals Cystine Crystals Uric Acid Crystals Triple Phos Crystals Tyrosine Crystals Other Crystals Amorphous Sediment Urine Bacteria Epithelial Casts (Auto) Fatty Casts Hyaline Casts Granular Casts (Auto) Waxy Casts Broad Casts RBC Casts WBC Casts Other Casts Urine Trichomonas Ur Yeast w Hyphae Urine Yeast (Budding) Urine Sperm (Auto) Ur Oval Fat Bodies Auto Ur Random Sodium Ur Random Potassium Stool Occult Blood Urine Opiates Screen Urine Methadone Screen Ur Barbiturates Screen Ur Phencyclidine Scrn Ur Amphetamines Screen U Benzodiazepines Scrn U Oth Cocaine Metabols U Cannabinoids Screen Alcohol, Quantitative Serum Ketones Influenza Typ A,B (EIA) Blood Type Blood Type Confirm Antibody Screen Crossmatch BBK History Checked 09/26/17 09/26/17 09/26/17 04:35 05:00 07:00 WBC RBC Hgb Hct MCV MCH MCHC RDW Plt Count MPV Neut % (Auto) Lymph % (Auto) Glenn % (Auto) Eos % (Auto) Baso % (Auto) Neut # Lymph # Glenn # Eos # Baso # Neutrophils % (Manual) Band Neutrophils % Lymphocytes % (Manual) Monocytes % (Manual) Basophils % (Manual) Platelet Estimate Large Platelets Hypochromasia (manual) Poikilocytosis (manual Anisocytosis (manual) Microcytosis (manual) Target Cells Ovalocytes Schistocytes PT INR APTT pCO2 pO2 HCO3 ABG pH ABG Total CO2 ABG O2 Saturation ABG Base Excess Sanjay Test ABG Potassium VBG pH VBG pCO2 VBG HCO3 VBG Total CO2 VBG O2 Sat (Calc) VBG Base Excess VBG Potassium A-a O2 Difference Glucose Lactate FiO2 Crit Value Called To Crit Value Called By Crit Value Read Back Blood Gas Notified Time Sodium 130 L Potassium 4.4 Chloride 106 Carbon Dioxide 19 L Anion Gap 9 L BUN 21 H Creatinine 0.7 L Est GFR ( Amer) > 60 Est GFR (Non-Af Amer) > 60 Random Glucose 109 Serum Osmolality Lactic Acid 4.0 H Calcium 7.4 L Phosphorus 2.4 L Magnesium 1.7 Iron TIBC % Saturation Total Bilirubin 3.6 H AST 50 ALT 34 Alkaline Phosphatase 86 Ammonia Troponin I NT-Pro-B Natriuret Pep Total Protein 4.8 L Albumin 1.8 L D Globulin 3.0 Albumin/Globulin Ratio 0.6 L Lipase Vitamin B12 328 Arterial Blood Potassium Venous Blood Potassium Urine Color Urine Clarity Urine pH Ur Specific [place] Urine Protein Urine Glucose (UA) Urine Ketones Urine Blood Urine Nitrate Urine Bilirubin Urine Urobilinogen Ur Leukocyte Esterase Urine RBC (Auto) Urine WBC Clumps (Auto) Urine Microscopic WBC Ur Squamous Epith Cells Ur Transition Epith Cell Ur Renal Epithelial Cell Calcium Carbonate Cryst Calcium Phos Courtney (Auto) Calcium Oxalate Crystal Leucine Crystals Cystine Crystals Uric Acid Crystals Triple Phos Crystals Tyrosine Crystals Other Crystals Amorphous Sediment Urine Bacteria Epithelial Casts (Auto) Fatty Casts Hyaline Casts Granular Casts (Auto) Waxy Casts Broad Casts RBC Casts WBC Casts Other Casts Urine Trichomonas Ur Yeast w Hyphae Urine Yeast (Budding) Urine Sperm (Auto) Ur Oval Fat Bodies Auto Ur Random Sodium Ur Random Potassium Stool Occult Blood Urine Opiates Screen Urine Methadone Screen Ur Barbiturates Screen Ur Phencyclidine Scrn Ur Amphetamines Screen U Benzodiazepines Scrn U Oth Cocaine Metabols U Cannabinoids Screen Alcohol, Quantitative Serum Ketones Negative Influenza Typ A,B (EIA) Blood Type Blood Type Confirm Antibody Screen Crossmatch BBK History Checked 09/26/17 07:00 WBC RBC Hgb Hct MCV MCH MCHC RDW Plt Count MPV Neut % (Auto) Lymph % (Auto) Glenn % (Auto) Eos % (Auto) Baso % (Auto) Neut # Lymph # Glenn # Eos # Baso # Neutrophils % (Manual) Band Neutrophils % Lymphocytes % (Manual) Monocytes % (Manual) Basophils % (Manual) Platelet Estimate Large Platelets Hypochromasia (manual) Poikilocytosis (manual Anisocytosis (manual) Microcytosis (manual) Target Cells Ovalocytes Schistocytes PT 17.7 H INR 1.6 H APTT 35.8 pCO2 pO2 HCO3 ABG pH ABG Total CO2 ABG O2 Saturation ABG Base Excess Sanjay Test ABG Potassium VBG pH VBG pCO2 VBG HCO3 VBG Total CO2 VBG O2 Sat (Calc) VBG Base Excess VBG Potassium A-a O2 Difference Glucose Lactate FiO2 Crit Value Called To Crit Value Called By Crit Value Read Back Blood Gas Notified Time Sodium Potassium Chloride Carbon Dioxide Anion Gap BUN Creatinine Est GFR ( Amer) Est GFR (Non-Af Amer) Random Glucose Serum Osmolality Lactic Acid Calcium Phosphorus Magnesium Iron TIBC % Saturation Total Bilirubin AST ALT Alkaline Phosphatase Ammonia Troponin I NT-Pro-B Natriuret Pep Total Protein Albumin Globulin Albumin/Globulin Ratio Lipase Vitamin B12 Arterial Blood Potassium Venous Blood Potassium Urine Color Urine Clarity Urine pH Ur Specific [place] Urine Protein Urine Glucose (UA) Urine Ketones Urine Blood Urine Nitrate Urine Bilirubin Urine Urobilinogen Ur Leukocyte Esterase Urine RBC (Auto) Urine WBC Clumps (Auto) Urine Microscopic WBC Ur Squamous Epith Cells Ur Transition Epith Cell Ur Renal Epithelial Cell Calcium Carbonate Cryst Calcium Phos [place] (Auto) Calcium Oxalate Crystal Leucine Crystals Cystine Crystals Uric Acid Crystals Triple Phos Crystals Tyrosine Crystals Other Crystals Amorphous Sediment Urine Bacteria Epithelial Casts (Auto) Fatty Casts Hyaline Casts Granular Casts (Auto) Waxy Casts Broad Casts RBC Casts WBC Casts Other Casts Urine Trichomonas Ur Yeast w Hyphae Urine Yeast (Budding) Urine Sperm (Auto) Ur Oval Fat Bodies Auto Ur Random Sodium Ur Random Potassium Stool Occult Blood Urine Opiates Screen Urine Methadone Screen Ur Barbiturates Screen Ur Phencyclidine Scrn Ur Amphetamines Screen U Benzodiazepines Scrn U Oth Cocaine Metabols U Cannabinoids Screen Alcohol, Quantitative Serum Ketones Influenza Typ A,B (EIA) Blood Type Blood Type Confirm Antibody Screen Crossmatch BBK History Checked
[2017-09-26 12:21] LABS: FOLATE 11.6 ng/mL
[2017-09-26] MEDS ORDERED: Potassium Phosphate 30 MMOLE in Sodium Chloride 0.9% 250 ML IV ONE (12:22)
--- NOTE | 2017-09-26 12:25 | CP.PCM.PN ---
Subjective - Date & Time of Evaluation Date of Evaluation: 09/26/17 Time of Evaluation: 10:30 - Subjective Subjective: Patient seen and examined bedside. Feeling better and appears more awake and energetic today. Had 1 episode of vomiting overnight. Denies any chest pain , SOB, palpitations, abdominal pain. No acute issues . BP 103/53 tachycardic HR 118 afebrile WBC 15.7 Hgb 4.9 ( after 2 unit PRBC )plt 90 K No melena,no hematemesis , no hematochezia Objective - Vital Signs/Intake and Output Vital Signs (last 24 hours): Temp Pulse Resp BP Pulse Ox 98.6 F 118 H 21 103/53 L 100 09/26/17 08:00 09/26/17 08:00 09/26/17 08:00 09/26/17 08:00 09/26/17 08:00 Intake and Output: 09/26/17 09/26/17 06:59 18:59 Intake Total 3585 Output Total 1210 Balance 2375 - Medications Medications: Current Medications Folic Acid (Folic Acid) 1 mg PO DAILY [facility] Iron Sucrose 100 mg/ Sodium (Chloride) 105 mls @ 105 mls/hr IVPB DAILY [facility] Stop: 09/28/17 09:59 Last Admin: 09/26/17 09:40 Dose: 105 mls/hr Sodium Chloride (Sodium Chloride 0.9%) 1,000 mls @ 175 mls/hr IV .Q5H43M [facility] Stop: 09/27/17 12:09 Pantoprazole Sodium (Protonix Ec Tab) 40 mg PO BID [facility] Thiamine HCl (Vitamin B1 Tab) 100 mg PO DAILY [facility] - Labs Labs: 09/26/17 04:35 09/26/17 04:35 PT 17.7 Seconds (9.8-13.1) H 09/26/17 07:00 INR 1.6 (0.9-1.2) H 09/26/17 07:00 APTT 35.8 Seconds (25.6-37.1) 09/26/17 07:00 - Constitutional Appears: Non-toxic, No Acute Distress - Head Exam Head Exam: ATRAUMATIC, NORMAL INSPECTION, NORMOCEPHALIC - Eye Exam Eye Exam: EOMI, Normal appearance, PERRL, Scleral icterus Pupil Exam: NORMAL ACCOMODATION - ENT Exam ENT Exam: Mucous Membranes Dry, Normal Exam - Neck Exam Neck Exam: Full ROM, Normal Inspection - Respiratory Exam Respiratory Exam: Clear to Ausculation Bilateral, NORMAL BREATHING PATTERN. absent: Rhonchi, Wheezes, Respiratory Distress - Cardiovascular Exam Cardiovascular Exam: Tachycardia, +S1, +S2. absent: JVD - GI/Abdominal Exam GI & Abdominal Exam: Soft, Normal Bowel Sounds. absent: Distended, Guarding, Tenderness, Rebound - Rectal Exam Rectal Exam: Deferred - Extremities Exam Extremities Exam: Full ROM, Normal Capillary Refill, Normal Inspection. absent : Calf Tenderness, Pedal Edema - Back Exam Back Exam: NORMAL INSPECTION - Neurological Exam Neurological Exam: Alert, Awake, CN II-XII Intact, Oriented x3 - Psychiatric Exam Psychiatric exam: Normal Affect, Normal Mood - Skin Skin Exam: Dry, Warm Additional comments: jaundiced Assessment and Plan - Assessment and Plan (Free Text) Assessment: 42 y/o male with PMH of heavy ETOH abuse was brought to ER for evaluation by family for weakness, jaundice and SOB. As per patient and family he drinks every day large quantity of hard liqueur and beer,but stopped drinking last couple of days due to weakness and because he was not feeling well.He denies any nausea, vomiting, hematemesis, melena, has had diarrhea last couple of days , denies any abdominal pain , has no appetite and feels weak. States that has noticed his skin color is more yellow and his abdomen is more distended than usual.Denies any chest pain , palpitations, has SOB, denies any cough or sputum production . Denies fever , chills . In ER patient found to have Hgb 2.6 lactate 19 total melisa 1.9 INR 1.7 HCO3 5 Guaic positive Abd US ;1. 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 Infectious, inflammatory etiology should be considered, less likely would be cystic pancreatic neoplasm. She 2. Hepatomegaly without focal hepatic mass. 3. Low volume incompletely visualized at ascites. 4. Portal venous flow could not be documented. Patient admitted in ICU and ordered transfusion with total 4 unit PRBC and 2 FFP .Today appears better 1. Severe Anemia with Hgb 2.6 admitted in ICU and transfused 4 unit PRBC and 2 FFP overnight Will repeat CBC Guarded prognosis GI consulted . Plan for EGD on Friday. Given the low levels of Hgb most likely this is not an acute blood loss anemia. Will need to rule out variceal bleed, vs gastritis vs malignancy Will d/c octreotide and Protonix drip. Start Protonix Po will start liquid diet and advance if tolerated Zofran PRN for nausea Abd US shoed retroperitonela mass ?. Ct abdomen ordered . will follow up report to better evaluate retroperitoneal mass 2. Alcoholism with dependency/ liver cirrhosis / coagulopathy Monitor closely for signs of withdrawals Continue Thiamine, Folic acid MVI , IVF Check hepatitis profile Ativan PRN for tremors and withdrawal sx 3.Lactic acidosis / dehydration / alcoholic ketoacidosis Most likely secondary to severe anemia with end organ hypoperfusion Lactic acid 19 on admission trending down to 4 today Continue IVF Less likely source of infection but given the readings of complex retroperitoneal mass will send cultures CT abdomen to better evaluate such mass Given Vancomycin 1 dose 3. Sepsis no clear source of infection at present ,but patient was tachycardic , WBC 12 with left shift ,lactate 19 continue IVF transfused PRBC and FFP Lactate trending down to 4 4. DVt prophylaxis SCD
[2017-09-26] MEDS: Sodium Chloride 0.9% 1,000 ML IV SCH ×2 (13:30→23:01)
[2017-09-26 14:16] LABS: MEAN CELL VOLUME 82.5 fl (80.0-94.0); MEAN CORPUSCULAR HEMOGLOBIN 26.2 pg (27.0-31.0); MEAN CORPUSCULAR HGB CONC 31.8 g/dL (33.0-37.0); RBC 2.24 Mil/uL (4.40-5.90); RED CELL DISTRIBUTION WIDTH 20.8 % (11.5-14.5); WHITE BLOOD COUNT 10.4 K/uL (4.8-10.8)
[2017-09-26 14:22] LABS: HEMOGLOBIN 5.9 g/dL (12.0-18.0)
[2017-09-26] MEDS: Pantoprazole 40 mg EC Tab PO SCH (19:01)
[2017-09-27] MEDS: Sodium Chloride 0.9% 1,000 ML IV SCH ×3 (04:15→18:53)
[2017-09-27 06:27] LABS: HEMOGLOBIN 7.2 g/dL (12.0-18.0); MEAN CELL VOLUME 83.7 fl (80.0-94.0); MEAN CORPUSCULAR HGB CONC 32.2 g/dL (33.0-37.0); RBC 2.66 Mil/uL (4.40-5.90); RED CELL DISTRIBUTION WIDTH 19.6 % (11.5-14.5); WHITE BLOOD COUNT 10.1 K/uL (4.8-10.8)
[2017-09-27 07:03] LABS: BLOOD UREA NITROGEN 15 mg/dl (9-20); CALCIUM 7.1 mg/dL (8.4-10.2); GFR AFRICAN-AMERICAN > 60; GFR NON-AFRICAN AMERICAN > 60
--- NOTE | 2017-09-27 08:33 | CP.CCUPN ---
CCU Subjective - Physician Review Events Since Last Encounter (Free Text): 09/27/17 08:30 Patient awake, no distress, no fever, no vomiting, events reviewed CCU Objective - Vital Signs / Intake & Output Vital Signs (Last 4 hours): Vital Signs Temp Pulse Resp BP Pulse Ox 09/27/17 07:54 99.1 F 83 19 118/72 99 09/27/17 06:00 84 17 122/72 97 Intake and Output (Last 8hrs): Intake & Output 09/26/17 09/27/17 09/27/17 22:59 06:59 14:59 Intake Total 4052 1827 Output Total 800 1620 Balance 3252 207 Intake: IV 2525 1400 Oral 400 120 Blood Product 1127 307 Output: Urine 800 1620 Urine, Voided 800 1620 Other: # Voids Urine, Voided 1 # Bowel Movements 2 - Physical Exam Head: Positive for: Atraumatic, Normocephalic Pupils: Positive for: PERRL Extroacular Muscles: Positive for: EOMI Conjunctiva: Positive for: Normal. Negative for: Icteric Mouth: Positive for: Dry Neck: Positive for: Normal Range of Motion. Negative for: JVD Respiratory/Chest: Positive for: Clear to Auscultation, Decreased Breath Sounds. Negative for: Accessory Muscle Use Cardiovascular: Positive for: Regular Rate and Rhythm, Tachycardic. Negative for: Murmurs, Rub Abdomen: Positive for: Normal Bowel Sounds. Negative for: Tenderness, Distention, Mass/Organomegaly Rectal: Positive for: Occult Blood Lower Extremity: Positive for: Edema, NORMAL PULSES. Negative for: CALF TENDERNESS, Cyanosis Neurological: Positive for: GCS=15, Motor Func Grossly Intact, Normal Sensory Function Skin: Positive for: Warm, Dry. Negative for: Rashes Psychiatric: Positive for: Alert, Oriented x 3, Normal Insight, Normal Concentration. Negative for: Agitated - Medications Active Medications: Active Medications Generic Name Dose Route Start Last Admin Trade Name Freq PRN Reason Stop Dose Admin Artificial Tears 2 drop 09/26/17 18:38 Artificial Tears OU Q4 PRN Dry eyes Folic Acid 1 mg 09/26/17 12:15 09/26/17 13:25 Folic Acid PO 1 mg DAILY [facility] Administration Iron Sucrose 100 mg/ Sodium 105 mls @ 105 mls/hr 09/26/17 09:00 09/26/17 09: 40 Chloride IVPB 09/28/17 09:59 105 mls/hr DAILY [facility] Administration Sodium Chloride 1,000 mls @ 175 mls/hr 09/26/17 12:15 09/27/17 04:15 Sodium Chloride 0.9% IV 09/27/17 12:09 175 mls/hr .Q5H43M [facility] Administration Pantoprazole Sodium 40 mg 09/26/17 17:00 09/26/17 19:01 Protonix Ec Tab PO 40 mg BID [facility] Administration Thiamine HCl 100 mg 09/26/17 12:15 09/26/17 13:26 Vitamin B1 Tab PO 100 mg DAILY [facility] Administration - Patient Studies Lab Studies: Microbiology Studies 09/25/17 18:25 Blood Culture - Preliminary Blood NO GROWTH AFTER 24 HOURS 09/25/17 15:25 Blood Culture - Preliminary Blood NO GROWTH AFTER 24 HOURS Lab Studies 09/27/17 09/27/17 09/26/17 Range/Units 05:30 05:30 16:42 WBC 10.1 (4.8-10.8) K/uL RBC 2.66 L (4.40-5.90) Mil/uL Hgb 7.2 L (12.0-18.0) g/dL Hct 22.2 L (35.0-51.0) % MCV 83.7 (80.0-94.0) fl MCH 27.0 (27.0-31.0) pg MCHC 32.2 L (33.0-37.0) g/dL RDW 19.6 H (11.5-14.5) % Plt Count 91 L (130-400) K/uL Sodium 138 (132-148) mmol/l Potassium 3.2 L (3.6-5.0) MMOL/L Chloride 109 H (98-107) mmol/L Carbon Dioxide 24 (22-30) mmol/L Anion Gap 8 L (10-20) BUN 15 (9-20) mg/dl Creatinine 0.6 L (0.8-1.5) mg/dl Est GFR ( Amer) > 60 Est GFR (Non-Af Amer) > 60 Random Glucose 91 (75-110) mg/dL Lactic Acid (0.7-2.1) MMOL/L Calcium 7.1 L (8.4-10.2) mg/dL CA 19-9 Antigen (0-37) U/mL Folate ng/mL Serum Ketones (NEGATIVE) Blood Type A POSITIVE Antibody Screen Negative Crossmatch See Detail BBK History Checked Patient has bt 09/26/17 09/26/17 09/26/17 Range/Units 13:30 07:00 05:00 WBC 10.4 (4.8-10.8) K/uL RBC 2.24 L (4.40-5.90) Mil/uL Hgb 5.9 L* (12.0-18.0) g/dL Hct 18.5 L (35.0-51.0) % MCV 82.5 (80.0-94.0) fl MCH 26.2 L (27.0-31.0) pg MCHC 31.8 L (33.0-37.0) g/dL RDW 20.8 H (11.5-14.5) % Plt Count 81 L (130-400) K/uL Sodium (132-148) mmol/l Potassium (3.6-5.0) MMOL/L Chloride (98-107) mmol/L Carbon Dioxide (22-30) mmol/L Anion Gap (10-20) BUN (9-20) mg/dl Creatinine (0.8-1.5) mg/dl Est GFR ( Amer) Est GFR (Non-Af Amer) Random Glucose (75-110) mg/dL Lactic Acid 4.0 H (0.7-2.1) MMOL/L Calcium (8.4-10.2) mg/dL CA 19-9 Antigen (0-37) U/mL Folate 11.6 ng/mL Serum Ketones (NEGATIVE) Blood Type Antibody Screen Crossmatch BBK History Checked 09/26/17 09/25/17 09/25/17 Range/Units 04:35 21:03 20:59 WBC (4.8-10.8) K/uL RBC (4.40-5.90) Mil/uL Hgb (12.0-18.0) g/dL Hct (35.0-51.0) % MCV (80.0-94.0) fl MCH (27.0-31.0) pg MCHC (33.0-37.0) g/dL RDW (11.5-14.5) % Plt Count (130-400) K/uL Sodium (132-148) mmol/l Potassium (3.6-5.0) MMOL/L Chloride (98-107) mmol/L Carbon Dioxide (22-30) mmol/L Anion Gap (10-20) BUN (9-20) mg/dl Creatinine (0.8-1.5) mg/dl Est GFR ( Amer) Est GFR (Non-Af Amer) Random Glucose (75-110) mg/dL Lactic Acid (0.7-2.1) MMOL/L Calcium (8.4-10.2) mg/dL CA 19-9 Antigen 35.0 (0-37) U/mL Folate ng/mL Serum Ketones Negative Negative (NEGATIVE) Blood Type Antibody Screen Crossmatch BBK History Checked 09/25/17 Range/Units 15:20 WBC (4.8-10.8) K/uL RBC (4.40-5.90) Mil/uL Hgb (12.0-18.0) g/dL Hct (35.0-51.0) % MCV (80.0-94.0) fl MCH (27.0-31.0) pg MCHC (33.0-37.0) g/dL RDW (11.5-14.5) % Plt Count (130-400) K/uL Sodium (132-148) mmol/l Potassium (3.6-5.0) MMOL/L Chloride (98-107) mmol/L Carbon Dioxide (22-30) mmol/L Anion Gap (10-20) BUN (9-20) mg/dl Creatinine (0.8-1.5) mg/dl Est GFR ( Amer) Est GFR (Non-Af Amer) Random Glucose (75-110) mg/dL Lactic Acid (0.7-2.1) MMOL/L Calcium (8.4-10.2) mg/dL CA 19-9 Antigen (0-37) U/mL Folate ng/mL Serum Ketones (NEGATIVE) Blood Type A POSITIVE Antibody Screen Negative Crossmatch See Detail BBK History Checked No verified bt Laboratory Results - last 24 hr 09/25/17 09/25/17 09/25/17 15:20 20:59 21:03 WBC RBC Hgb Hct MCV MCH MCHC RDW Plt Count Sodium Potassium Chloride Carbon Dioxide Anion Gap BUN Creatinine Est GFR ( Amer) Est GFR (Non-Af Amer) Random Glucose Lactic Acid Calcium CA 19-9 Antigen 35.0 Folate Serum Ketones Negative Blood Type A POSITIVE Antibody Screen Negative Crossmatch See Detail BBK History Checked No verified bt 09/26/17 09/26/17 09/26/17 04:35 05:00 07:00 WBC RBC Hgb Hct MCV MCH MCHC RDW Plt Count Sodium Potassium Chloride Carbon Dioxide Anion Gap BUN Creatinine Est GFR ( Amer) Est GFR (Non-Af Amer) Random Glucose Lactic Acid 4.0 H Calcium CA 19-9 Antigen Folate 11.6 Serum Ketones Negative Blood Type Antibody Screen Crossmatch BBK History Checked 09/26/17 09/26/17 09/27/17 13:30 16:42 05:30 WBC 10.4 10.1 RBC 2.24 L 2.66 L Hgb 5.9 L* 7.2 L Hct 18.5 L 22.2 L MCV 82.5 83.7 MCH 26.2 L 27.0 MCHC 31.8 L 32.2 L RDW 20.8 H 19.6 H Plt Count 81 L 91 L Sodium Potassium Chloride Carbon Dioxide Anion Gap BUN Creatinine Est GFR ( Amer) Est GFR (Non-Af Amer) Random Glucose Lactic Acid Calcium CA 19-9 Antigen Folate Serum Ketones Blood Type A POSITIVE Antibody Screen Negative Crossmatch See Detail BBK History Checked Patient has bt 09/27/17 05:30 WBC RBC Hgb Hct MCV MCH MCHC RDW Plt Count Sodium 138 Potassium 3.2 L Chloride 109 H Carbon Dioxide 24 Anion Gap 8 L BUN 15 Creatinine 0.6 L Est GFR ( Amer) > 60 Est GFR (Non-Af Amer) > 60 Random Glucose 91 Lactic Acid Calcium 7.1 L CA 19-9 Antigen Folate Serum Ketones Blood Type Antibody Screen Crossmatch BBK History Checked Critical Care Progress Note - Nutrition Nutrition: Nutrition Category Date Time Status Regular Diet [DIET] Diets 09/26/17 Lunch Active Assessment/Plan - Assessment and Plan (Free Text) Assessment: A/P GI bleeding, anemia, coagulopathy, thrombocytopenia, chronic alcoholism, metabolic acidosis - Transfusion as needed - GI follow up - Continue meds - Follow up labs
[2017-09-27] MEDS: Pantoprazole 40 mg EC Tab PO SCH ×2 (09:03→18:53)
--- NOTE | 2017-09-27 11:58 | CP.PCM.PN ---
Subjective - Date & Time of Evaluation Date of Evaluation: 09/27/17 Time of Evaluation: 11:52 - Subjective Subjective: pt doing well this morning hemodynamically stable mild jaundiced alert, oriented x3. Objective - Vital Signs/Intake and Output Vital Signs (last 24 hours): Temp Pulse Resp BP Pulse Ox 99.1 F 83 19 118/72 99 09/27/17 07:54 09/27/17 07:54 09/27/17 07:54 09/27/17 07:54 09/27/17 07:54 Vitals Reviewed GEN: WDWN, ALERT, COOPERATIVE HEENT: NCAT, PERRL, EOMI HEART: RRR, +S1S2, NO MRG LUNG: CTAB, NO WRR ABD: SOFT, NT, distended, NO HSM, NO MASSES EXT: NORMAL PEDAL PULSES, GOOD CAPILLARY REFILL NEURO: AAOX3, STRENGTH EQUAL BILATERAL UPPER AND LOWER EXTREMITIES SKIN: WARM, DRY PSYCH: NORMAL MOOD, NORMAL AFFECT Intake and Output: 09/27/17 09/27/17 06:59 18:59 Intake Total 2979 Output Total 1620 Balance 1359 - Medications Medications: Current Medications Artificial Tears (Artificial Tears) 2 drop OU Q4 PRN PRN Reason: Dry eyes Chlordiazepoxide (Librium) 10 mg PO Q8 PRN PRN Reason: withdrawal sx: tremors, agitat Last Admin: 09/27/17 10:51 Dose: 10 mg Folic Acid (Folic Acid) 1 mg PO DAILY [facility] Last Admin: 09/27/17 09:03 Dose: 1 mg Iron Sucrose 100 mg/ Sodium (Chloride) 105 mls @ 105 mls/hr IVPB DAILY [facility] Stop: 09/28/17 09:59 Last Admin: 09/26/17 09:40 Dose: 105 mls/hr Sodium Chloride (Sodium Chloride 0.9%) 1,000 mls @ 175 mls/hr IV .[id number] [facility] Stop: 09/27/17 12:09 Last Admin: 09/27/17 04:15 Dose: 175 mls/hr Pantoprazole Sodium (Protonix Ec Tab) 40 mg PO BID [facility] Last Admin: 09/27/17 09:03 Dose: 40 mg Thiamine HCl (Vitamin B1 Tab) 100 mg PO DAILY [facility] Last Admin: 09/27/17 09:03 Dose: 100 mg - Labs Labs: 09/27/17 05:30 09/27/17 05:30 PT 17.7 Seconds (9.8-13.1) H 09/26/17 07:00 INR 1.6 (0.9-1.2) H 09/26/17 07:00 APTT 35.8 Seconds (25.6-37.1) 09/26/17 07:00 Assessment and Plan - Assessment and Plan (Free Text) Plan: 42 y/o male with PMH of heavy ETOH abuse was brought to ER for evaluation by family for weakness, jaundice and SOB. As per patient and family he drinks every day large quantity of hard liqueur and beer,but stopped drinking last couple of days due to weakness and because he was not feeling well.He denies any nausea, vomiting, hematemesis, melena, has had diarrhea last couple of days , denies any abdominal pain , has no appetite and feels weak. States that has noticed his skin color is more yellow and his abdomen is more distended than usual.Denies any chest pain , palpitations, has SOB, denies any cough or sputum production . Denies fever , chills . In ER patient found to have Hgb 2.6 lactate 19 total melisa 1.9 INR 1.7 HCO3 5 Guaic positive Abd US ;1. 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 Infectious, inflammatory etiology should be considered, less likely would be cystic pancreatic neoplasm. She 2. Hepatomegaly without focal hepatic mass. 3. Low volume incompletely visualized at ascites. 4. Portal venous flow could not be documented. CT abdomen and pelvis read as :Moderate-sized left-sided effusion and mild left basilar atelectasis. Cardiomegaly. Hiatal hernia with wall thickening of distal esophagus with wall thickening of the stomach. Findings may represent a esophagitis/gastritis. In addition, there is also wall thickening and a irregularity of the entire duodenum with adjacent fluid ; rule out esophagitis/ gastritis and/or duodenitis. Rule out peptic ulcer disease. Rule out inflammatory changes possibly due to an acute pancreatitis. The pancreas is not well delineated though significant infiltration and fluid within the mesenteries surrounding the pancreas. Correlation with serum amylase and lipase to exclude the possibility of concomitant acute pancreatitis. Note also made of a small hyperdense focus within the pancreatic tail region. Possibility of a pancreatic mass not excluded. Consider followup pre and post-contrast MRI of the pancreas. The liver is enlarged and exhibits nodular surface. Findings may represent underlying cirrhosis. Borderline/mild splenomegaly. Edema and/or submucosal fatty deposition within wall of the cecum and ascending colon. Rule out acute colitis versus submucosal fatty deposition due to chronic colitis. appears better this morning, alert, oriented, no confusion. mild jaundice. for MRI ABD with and without. 1. Severe Anemia with Hgb 2.6 admitted in ICU and transfused 4 unit PRBC and 2 FFP overnight Repeat Hgb post 4th unit PRBC transfusion 5.9, 2 more unit PRBC and 1 unit Platelet TOTAL 6 PRBC, 2 FFP, 1 PLT. Will repeat CBC this AM was 7.2/22.2 Guarded prognosis GI consulted . Plan for EGD on Friday. Given the low levels of Hgb most likely this is not an acute blood loss anemia. Will need to rule out variceal bleed, vs gastritis vs malignancy Will d/c octreotide and Protonix drip. Start Protonix Po will start liquid diet and advance if tolerated Zofran PRN for nausea Abd US shoed retroperitonela mass ?. Ct abdomen poss pancreatic mass . will follow up MRI with and without. 2. Alcoholism with dependency/ liver cirrhosis / coagulopathy Monitor closely for signs of withdrawals Continue Thiamine, Folic acid MVI , IVF Check hepatitis profile Ativan PRN for tremors and withdrawal sx Low dose Librium for CIWA 3.Lactic acidosis / dehydration / alcoholic ketoacidosis Most likely secondary to severe anemia with end organ hypoperfusion Lactic acid 19 on admission trending down to 4 yesterday Continue IVF Less likely source of infection but given the readings of complex retroperitoneal mass will send cultures CT abdomen to better evaluate such mass Given Vancomycin 1 dose. 3. Sepsis no clear source of infection at present ,but patient was tachycardic , WBC 12 with left shift ,lactate 19 continue IVF transfused PRBC and FFP Lactate trending down to 4 4. DVt prophylaxis SCD
[2017-09-27] MEDS ORDERED: Gadodiamide 287 MG/ML VIAL (15ML) IV ONE (12:11)
[2017-09-27] MEDS ORDERED: Sodium Chloride 0.9% 50 ML IV ONE (12:11)
--- NOTE | 2017-09-27 14:26 | MRI ---
EXAM: MR Abdomen Without and With Intravenous Contrast CLINICAL HISTORY: 42 years old, male; Signs and symptoms; Mass, lump, or swelling; Other: Pacreatic mass? ; Patient HX: History of alcohol abuse, denies abd pain, denies black stool, denies fever; Additional info: Pancreatic mass? TECHNIQUE: Multiplanar magnetic resonance images of the abdomen without and with intravenous contrast. CONTRAST: 14 mL of OMNISCAN administered intravenously. COMPARISON: No relevant prior studies available. FINDINGS: Artifacts: Limited due to motion and misregistration artifacts. Lower thorax: There is moderate left and small right pleural effusion. Bibasilar left more than right nonspecific infiltrates and consolidation are present, consistent with atelectasis or pneumonia. Small hiatal hernia. Liver: Enlarged nodular cirrhotic liver. Moderate intraperitoneal abdominal fluid likely due to liver disease. Nonspecific small bowel prominence likely due to under distention versus a sequela of hepatocellular disease. Gallbladder and bile ducts: No filling defects are identified within the gallbladder to suggest gallstones. No ductal dilation. Pancreas: There is peripancreatic fluid and inflammatory change representing reactive changes versus pancreatitis. The pancreas demonstrate normal morphology without cystic or solid masses. No ductal dilation. Spleen: The spleen measures 13 cm. Adrenals: Unremarkable. No mass. Kidneys and ureters: Normal kidneys bilaterally. No hydronephrosis. Stomach and bowel: Diverticulosis. Moderate amount of stool in the colon. Nonspecific gastric thickening with perigastric fluid and infiltration likely due to reactive changes and under distention. Correlation with clinical data is recommended if gastritis is clinically suspected. Intraperitoneal space: Unremarkable. No significant fluid collection. Soft tissues: There is subcutaneous soft tissue infiltration representing edema or anasarca. Vasculature: Unremarkable. No abdominal aortic aneurysm. Lymph nodes: Unremarkable. No enlarged lymph nodes. IMPRESSION: 1. There is moderate left and small right pleural effusion. Bibasilar left more than right nonspecific infiltrates and consolidation are present, consistent with atelectasis or pneumonia. 2. There is peripancreatic fluid and inflammatory change representing reactive changes versus pancreatitis. No evidence of pancreatic mass. No retroperitoneal cystic mass is identified. 3. Cirrhotic liver disease with ascites.
[2017-09-27] MEDS ORDERED: Magnesium Sulfate 2 gm/50 ml 2 GM/50 ML BAG IVPB ONE (14:58)
[2017-09-27] MEDS ORDERED: Potassium Chloride 20 mEq ER Tab PO ONE (14:59)
[2017-09-28] MEDS: Artificial Tears Opht Soln OU PRN ×2 (00:43→08:36)
--- NOTE | 2017-09-28 00:43 | CP.PCM.CON ---
History of Present Illness - History of Present Illness History of Present Illness: 42 yo male brought to ER for progressive weakness. Drinks alcohol daily for 30 years. No nausea , hematemesis or gross blood per rectum Had noted increasing abdominal distention. Review of Systems - Constitutional Constitutional: absent: Chills - EENT Eyes: absent: Blurred Vision Ears: absent: Decreased Hearing Nose/Mouth/Throat: absent: Epistaxis - Cardiovascular Cardiovascular: absent: Chest Pain - Respiratory Respiratory: absent: Dyspnea - Gastrointestinal Gastrointestinal: As Per HPI - Genitourinary Genitourinary: absent: Change in Urinary Stream Past Patient History - Infectious Disease Hx of Infectious Diseases: None - Past Medical History & Family History Past Medical History?: Yes - Past Social History Smoking Status: occasional - CARDIAC Hx Cardiac Disorders: (Denies) - PULMONARY Hx Respiratory Disorders: (Denies) - MUSCULOSKELETAL/RHEUMATOLOGICAL Hx Falls: No - PSYCHIATRIC Hx Substance Use: No Other/Comment: History of alcohol abuse - SURGICAL HISTORY Hx Surgeries: No - ANESTHESIA Hx Anesthesia: Yes Hx Anesthesia Reactions: Yes (allergic rxn as per family, doesnt remember s/s) Meds Allergies/Adverse Reactions: Allergies Allergy/AdvReac Type Severity Reaction Status Date / Time iodine Allergy RASH Verified 09/25/17 14:07 Penicillins Allergy RASH Verified 09/25/17 14:07 - Medications Medications: Current Medications Artificial Tears (Artificial Tears) 2 drop OU Q4 PRN PRN Reason: Dry eyes Chlordiazepoxide (Librium) 10 mg PO Q8 PRN PRN Reason: withdrawal sx: tremors, agitat Last Admin: 09/27/17 18:53 Dose: 10 mg Folic Acid (Folic Acid) 1 mg PO DAILY [facility] Last Admin: 09/27/17 09:03 Dose: 1 mg Iron Sucrose 100 mg/ Sodium (Chloride) 105 mls @ 105 mls/hr IVPB DAILY [facility] Stop: 09/28/17 09:59 Last Admin: 09/27/17 15:06 Dose: 105 mls/hr Pantoprazole Sodium (Protonix Ec Tab) 40 mg PO BID [facility] Last Admin: 09/27/17 18:53 Dose: 40 mg Thiamine HCl (Vitamin B1 Tab) 100 mg PO DAILY [facility] Last Admin: 09/27/17 09:03 Dose: 100 mg Physical Exam - Head Exam Head Exam: ATRAUMATIC - Eye Exam Eye Exam: Normal appearance - ENT Exam ENT Exam: Normal Exam - Neck Exam Neck exam: Positive for: Normal Inspection - Respiratory Exam Respiratory Exam: Clear to Auscultation Bilateral - Cardiovascular Exam Cardiovascular Exam: REGULAR RHYTHM, +S1, +S2 - GI/Abdominal Exam GI & Abdominal Exam: Distended, Firm, Normal Bowel Sounds, Soft. absent: Tenderness Results - Vital Signs Recent Vital Signs: Last Vital Signs Temp 98.1 F 09/27/17 20:00 Pulse 98 H 09/27/17 22:00 Resp 19 09/27/17 22:00 BP 137/90 09/27/17 22:00 Pulse Ox 98 09/27/17 22:00 - Labs Result Diagrams: 09/27/17 05:30 09/27/17 05:30 Labs: Laboratory Results - last 24 hr 09/26/17 09/27/17 09/27/17 16:42 05:30 05:30 WBC 10.1 RBC 2.66 L Hgb 7.2 L Hct 22.2 L MCV 83.7 MCH 27.0 MCHC 32.2 L RDW 19.6 H Plt Count 91 L Sodium 138 Potassium 3.2 L Chloride 109 H Carbon Dioxide 24 Anion Gap 8 L BUN 15 Creatinine 0.6 L Est GFR ( Amer) > 60 Est GFR (Non-Af Amer) > 60 Random Glucose 91 Calcium 7.1 L Blood Type A POSITIVE Antibody Screen Negative Crossmatch See Detail BBK History Checked Patient has bt - Imaging and Cardiology CT scan - abdomen Status: Report reviewed by me Assessment & Plan (1) Anemia Assessment and Plan: Severe microcytic anemia likely subacute or chronic. Patient with long alcohol hisory and cirrhotic liver on CT. CT also demonstrates peripancreatic fluid and inflammation. Patient should be transfused to Hgb 8. Upper endoscopy Friday to r /o ulcer, gastritis, varices, or neoplasm. Will start on diuretics for ascites. Status: Acute
--- NOTE | 2017-09-28 07:49 | CP.CCUPN ---
CCU Subjective - Physician Review Events Since Last Encounter (Free Text): 09/28/17 07:49 Patient awake, no distress, no fever, no vomiting, events reviewed CCU Objective - Vital Signs / Intake & Output Vital Signs (Last 4 hours): Vital Signs Temp Pulse Resp BP Pulse Ox 09/28/17 06:00 86 13 129/77 97 09/28/17 04:00 98.4 F 89 17 140/83 96 Intake and Output (Last 8hrs): Intake & Output 09/27/17 09/28/17 09/28/17 22:59 06:59 14:59 Intake Total 2165 120 Output Total 650 200 Balance 1515 -80 Intake: IV 1275 Intake, Piggyback 150 Oral 740 120 Output: Urine 650 200 Urine, Voided 650 200 Other: # Bowel Movements 0 - Physical Exam Head: Positive for: Atraumatic, Normocephalic Pupils: Positive for: PERRL Extroacular Muscles: Positive for: EOMI Conjunctiva: Positive for: Normal. Negative for: Icteric Mouth: Positive for: Dry Neck: Positive for: Normal Range of Motion. Negative for: JVD Respiratory/Chest: Positive for: Clear to Auscultation, Decreased Breath Sounds. Negative for: Accessory Muscle Use Cardiovascular: Positive for: Regular Rate and Rhythm, Tachycardic. Negative for: Murmurs, Rub Abdomen: Positive for: Normal Bowel Sounds. Negative for: Tenderness, Distention, Mass/Organomegaly Rectal: Positive for: Occult Blood Lower Extremity: Positive for: Edema, NORMAL PULSES. Negative for: CALF TENDERNESS, Cyanosis Neurological: Positive for: GCS=15, Motor Func Grossly Intact, Normal Sensory Function Skin: Positive for: Warm, Dry. Negative for: Rashes Psychiatric: Positive for: Alert, Oriented x 3, Normal Insight, Normal Concentration. Negative for: Agitated - Medications Active Medications: Active Medications Generic Name Dose Route Start Last Admin Trade Name Freq PRN Reason Stop Dose Admin Artificial Tears 2 drop 09/26/17 18:38 09/28/17 00:43 Artificial Tears OU 2 drop Q4 PRN Administration Dry eyes Chlordiazepoxide 10 mg 09/27/17 10:15 09/27/17 18:53 Librium PO 10 mg Q8 PRN Administration withdrawal sx: tremors, agitat Folic Acid 1 mg 09/26/17 12:15 09/27/17 09:03 Folic Acid PO 1 mg DAILY [facility] Administration Furosemide 40 mg 09/28/17 09:00 Lasix IV DAILY [facility] Iron Sucrose 100 mg/ Sodium 105 mls @ 105 mls/hr 09/26/17 09:00 09/27/17 15: 06 Chloride IVPB 09/28/17 09:59 105 mls/hr DAILY [facility] Administration Pantoprazole Sodium 40 mg 09/26/17 17:00 09/27/17 18:53 Protonix Ec Tab PO 40 mg BID [facility] Administration Spironolactone 25 mg 09/28/17 09:00 Aldactone PO BID [facility] Thiamine HCl 100 mg 09/26/17 12:15 09/27/17 09:03 Vitamin B1 Tab PO 100 mg DAILY [facility] Administration - Patient Studies Lab Studies: Microbiology Studies 09/25/17 18:25 Blood Culture - Preliminary Blood NO GROWTH AFTER 48 HOURS 09/25/17 15:25 Blood Culture - Preliminary Blood NO GROWTH AFTER 48 HOURS 09/25/17 07:54 MRSA Culture (Admit) - Final Naris MRSA NOT DETECTED 09/25/17 17:11 Urine Culture - Final Urine No Growth (<1,000 CFU/ML) Critical Care Progress Note - Nutrition Nutrition: Nutrition Category Date Time Status Regular Diet [DIET] Diets 09/26/17 Lunch Active Assessment/Plan - Assessment and Plan (Free Text) Assessment: A/P GI bleeding, anemia, coagulopathy, thrombocytopenia, chronic alcoholism, metabolic acidosis - Transfusion as needed - GI follow up - Continue meds - Follow up labs
[2017-09-28 08:05] LABS: HEMOGLOBIN 7.7 g/dL (12.0-18.0); MEAN CELL VOLUME 86.8 fl (80.0-94.0); MEAN CORPUSCULAR HEMOGLOBIN 27.4 pg (27.0-31.0); MEAN CORPUSCULAR HGB CONC 31.6 g/dL (33.0-37.0); RBC 2.81 Mil/uL (4.40-5.90); RED CELL DISTRIBUTION WIDTH 20.4 % (11.5-14.5); WHITE BLOOD COUNT 9.3 K/uL (4.8-10.8)
[2017-09-28 08:18] LABS: ALB/GLOB RATIO 0.6 (1.0-2.1); ALBUMIN 2.3 g/dL (3.5-5.0); ALT/SGPT 43 U/L (21-72); AST/SGOT 81 U/L (17-59); BLOOD UREA NITROGEN 10 mg/dl (9-20); CALCIUM 7.1 mg/dL (8.4-10.2); GFR AFRICAN-AMERICAN > 60; GFR NON-AFRICAN AMERICAN > 60; MAGNESIUM 2.4 MG/DL (1.6-2.3)
[2017-09-28] MEDS: Pantoprazole 40 mg EC Tab PO SCH (08:37)
--- NOTE | 2017-09-28 09:50 | RAD ---
HISTORY: Abdominal distention COMPARISON: Comparison made with CT scan of the abdomen and pelvis 09/26/2017. FINDINGS: Of BOWEL: No evidence of acute mechanical bowel obstruction so far as can be seen. Note that on bowel is poorly delineated due to body habitus and intra abdominal ascites seen on prior CT scan BONES: Normal. OTHER FINDINGS: None. IMPRESSION: Somewhat limited study. No evidence of acute mechanical bowel obstruction
[2017-09-28] MEDS ORDERED: Potassium Chloride 20 mEq ER Tab PO ONE ×2 (10:57→16:47)
--- NOTE | 2017-09-28 11:02 | CP.PCM.PN ---
Subjective - Date & Time of Evaluation Date of Evaluation: 09/28/17 Time of Evaluation: 10:30 - Subjective Subjective: No fever alert, oriented x 3 not in distress no signs of withdrawal' denies abd pain abd distention no CP no SOB tolerating PO diet Objective - Vital Signs/Intake and Output Vital Signs (last 24 hours): Temp Pulse Resp BP Pulse Ox 99.5 F 85 22 139/81 99 09/28/17 08:00 09/28/17 08:00 09/28/17 08:00 09/28/17 08:37 09/28/17 08:00 Intake and Output: 09/28/17 09/28/17 06:59 18:59 Intake Total 885 Output Total 450 Balance 435 - Medications Medications: Current Medications Artificial Tears (Artificial Tears) 2 drop OU Q4 PRN PRN Reason: Dry eyes Last Admin: 09/28/17 08:36 Dose: 2 drop Chlordiazepoxide (Librium) 10 mg PO Q8 PRN PRN Reason: withdrawal sx: tremors, agitat Last Admin: 09/27/17 18:53 Dose: 10 mg Folic Acid (Folic Acid) 1 mg PO DAILY [facility] Last Admin: 09/28/17 08:36 Dose: 1 mg Furosemide (Lasix) 40 mg IV DAILY [facility] Last Admin: 09/28/17 08:37 Dose: 40 mg Pantoprazole Sodium (Protonix Ec Tab) 40 mg PO BID [facility] Last Admin: 09/28/17 08:37 Dose: 40 mg Spironolactone (Aldactone) 25 mg PO BID [facility] Last Admin: 09/28/17 08:36 Dose: 25 mg Thiamine HCl (Vitamin B1 Tab) 100 mg PO DAILY [facility] Last Admin: 09/28/17 08:37 Dose: 100 mg - Labs Labs: 09/28/17 06:55 09/28/17 06:55 PT 17.7 Seconds (9.8-13.1) H 09/26/17 07:00 INR 1.6 (0.9-1.2) H 09/26/17 07:00 APTT 35.8 Seconds (25.6-37.1) 09/26/17 07:00 - Constitutional Appears: No Acute Distress, Older Than Stated Age - Head Exam Head Exam: NORMAL INSPECTION, NORMOCEPHALIC - Eye Exam Eye Exam: EOMI, Normal appearance, PERRL, Scleral icterus Pupil Exam: NORMAL ACCOMODATION - ENT Exam ENT Exam: Mucous Membranes Moist, Normal External Ear Exam - Neck Exam Neck Exam: Full ROM. absent: Meningismus - Respiratory Exam Respiratory Exam: NORMAL BREATHING PATTERN. absent: Wheezes, Respiratory Distress - Cardiovascular Exam Cardiovascular Exam: REGULAR RHYTHM, +S1, +S2 - GI/Abdominal Exam GI & Abdominal Exam: Distended, Normal Bowel Sounds. absent: Tenderness Additional comments: ascites - Extremities Exam Extremities Exam: Full ROM, Normal Capillary Refill. absent: Calf Tenderness, Pedal Edema - Back Exam Back Exam: Full ROM. absent: CVA tenderness (L), CVA tenderness (R) - Neurological Exam Neurological Exam: Alert, Awake, CN II-XII Intact, Oriented x3 Neuro motor strength exam: Left Upper Extremity: 5, Right Upper Extremity: 5, Left Lower Extremity: 5, Right Lower Extremity: 5 - Psychiatric Exam Psychiatric exam: Normal Affect, Normal Mood - Skin Skin Exam: Dry, Warm Additional comments: Jaundiced Assessment and Plan - Assessment and Plan (Free Text) Assessment: 42 y/o male with PMH of heavy ETOH abuse was brought to ER for evaluation by family for weakness, jaundice and SOB and abdominal distention. As per patient and family he drinks every day large quantity of Alcohol In ER patient found to have Hgb 2.6 lactate 19 total melisa 1.9 INR 1.7 HCO3 5 Guaic positive . Abd US ;1. 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 2. Hepatomegaly without focal hepatic mass. 3. Low volume incompletely visualized at ascites. CT abdomen and pelvis read as :Moderate-sized left-sided effusion and mild left basilar atelectasis. Cardiomegaly. Hiatal hernia with wall thickening of distal esophagus with wall thickening of the stomach. The pancreas is not well delineated though significant infiltration and fluid within the mesenteries surrounding the pancreas. Note also made of a small hyperdense focus within the pancreatic tail region. Possibility of a pancreatic mass not excluded. Consider followup pre and post- contrast MRI of the pancreas. The liver is enlarged and exhibits nodular surface. Findings may represent underlying cirrhosis. Borderline/mild splenomegaly. Edema and/or submucosal fatty deposition within wall of the cecum and ascending colon. Rule out acute colitis versus submucosal fatty deposition due to chronic colitis. MRI of Abd : 1. There is moderate left and small right pleural effusion. Bibasilar left more than right nonspecific infiltrates and consolidation are present, consistent with atelectasis or pneumonia. 2. There is peripancreatic fluid and inflammatory change representing reactive changes versus pancreatitis. No evidence of pancreatic mass. No retroperitoneal cystic mass is identified. 3. Cirrhotic liver disease with ascites 1. Severe Anemia with Hgb 2.6 prob sec to GI Bleed ( ? Esoph Varices) admitted in ICU and transfused 6 unit PRBC and 2 FFP and 1 PlateletT. GI consulted . Plan for EGD on tomorrow Given the low levels of Hgb most likely this is not an acute blood loss anemia. Will need to rule out variceal bleed, vs gastritis vs malignancy Off Octreotide and Protonix drip cont PO Protonix tolerating PO diet 2. Alcohol liver cirrhosis / coagulopathy/ascites Monitor closely for signs of withdrawals Continue Thiamine, Folic acid MVI , IVF Ativan PRN for tremors and withdrawal sx Low dose Librium for CIWA cont Lasix and Aldactone Paracentesis by IR in am, Fluid for analysis AFP 3.Lactic acidosis / dehydration / alcoholic ketoacidosis Most likely secondary to severe anemia with end organ hypoperfusion Lactic acid 19 on admission trending down 4. Unlikely Sepsis no clear source of infection at present ,but patient was tachycardic , WBC 12 with left shift ,lactate 19 Blood c/s and Urine c/s : negative WBC went down without abx, no fever DVt prophylaxis SCD no anticoag sec to coagulopathy
[2017-09-28] MEDS ORDERED: Chlorhexidine Gluconate 1 APPL/PKT TP ONE (21:55)
[2017-09-29 05:33] LABS: HEMOGLOBIN 8.8 g/dL (12.0-18.0); MEAN CELL VOLUME 86.1 fl (80.0-94.0); MEAN CORPUSCULAR HEMOGLOBIN 27.6 pg (27.0-31.0); RBC 3.2 Mil/uL (4.40-5.90); RED CELL DISTRIBUTION WIDTH 20.5 % (11.5-14.5); WHITE BLOOD COUNT 9.3 K/uL (4.8-10.8)
[2017-09-29 06:17] LABS: BLOOD UREA NITROGEN 8 mg/dl (9-20); CALCIUM 7.4 mg/dL (8.4-10.2); GFR AFRICAN-AMERICAN > 60; GFR NON-AFRICAN AMERICAN > 60
[2017-09-29 06:37] LABS: INR 1.4 (0.9-1.2); PROTHROMBIN TIME 15.1 Seconds (9.8-13.1)
[2017-09-29] MEDS ORDERED: Potassium Chloride 20 mEq ER Tab PO ONE (08:03)
[2017-09-29] MEDS: Pantoprazole 40 mg EC Tab PO SCH ×3 (08:37→19:24)
[2017-09-29] MEDS: Artificial Tears Opht Soln OU PRN (08:37)
--- NOTE | 2017-09-29 10:19 | CT ---
PROCEDURE: CT scan abdomen dated 09/26/2017. HISTORY: Questionable retroperitoneal mass. COMPARISON: No prior study available for comparison however correlation made with abdominal ultrasound 09/25/2017 TECHNIQUE: Contiguous axial images of the abdomen and pelvis performed without oral or intravenous contrast material. Additional 2 dimensional sagittal and coronal reformats generated. Radiation dose: Total exam DLP = 777.04 mGy-cm. This CT exam was performed using one or more of the following dose reduction techniques: Automated exposure control, adjustment of the mA and/or kV according to patient size, and/or use of iterative reconstruction technique. FINDINGS: LOWER THORAX: There is a moderate size left-sided effusion with mild left basilar atelectasis. Minor passive atelectasis right posterior lower lung field. Questionable trace right-sided effusion. Heart is enlarged. No significant pericardial effusion. Small to medium size hiatal hernia with wall thickening of the distal esophagus that could be due to protrusion of gastric mucosa. Possibility of esophagitis not excluded. LIVER: The liver is enlarged measuring just over 20 cm in CC dimension. Liver demonstrates a somewhat nodular contour suggesting hepatic cirrhosis. Clinical correlation recommended. There is moderate to large amount of abdominal and pelvic ascites. GALLBLADDER AND BILE DUCTS: Gallbladder is physiologically distended. No evidence of intraluminal gallbladder calculi. PANCREAS: May in part be due to a large amount of abdominal and pelvic ascites however pancreatitis not excluded. Correlation with serum amylase lipase recommended to exclude an acute pancreatitis. SPLEEN: Spleen is mildly enlarged measuring nearly 13 cm in AP dimension. No splenic masses or collections. There is a small elliptical shaped calcification which appears to be located on adjacent to the posterior splenic border in the upper abdomen. ADRENALS: There are no adrenal lesions. KIDNEYS AND URETERS: Kidneys demonstrate relatively symmetric size. No evidence of nephrolithiasis or hydronephrosis. No obvious renal mass or collection. BLADDER: Urinary bladder is physiologically distended. No evidence of intraluminal urinary bladder calculi. REPRODUCTIVE: NA as the pelvis was not study on this exam APPENDIX: The appendix not seen with any certainty on this study BOWEL: Evaluation of the bowel is limited due to the lack of oral contrast material. The stomach is incompletely distended which presumably accounts for thick-walled appearance. Possibility of gastritis not excluded. There is apparent wall thickening at and adjacent infiltration/fluid surrounding the entire duodenum which is nonspecific though may be postinflammatory. Rule out bleed the nidus. Rule out peptic ulcer disease. In addition, there is edema and/or on submucosal fat deposition within the cecum and at ascending and to a lesser degree proximal transverse colon. Findings could represent a colitis or possibly submucosal fat deposition due to chronic nonspecific colitis. PERITONEUM: As above. No gross free intraperitoneal air. LYMPH NODES: Several small nonspecific retroperitoneal lymph nodes. VASCULATURE: Unremarkable. No aortic aneurysm. BONES: The osseous structures appear intact. OTHER FINDINGS: None. IMPRESSION: Moderate-sized left-sided effusion and mild left basilar atelectasis. Cardiomegaly. Hiatal hernia with wall thickening of distal esophagus with wall thickening of the stomach. Findings may represent a esophagitis/gastritis. In addition, there is also wall thickening and a irregularity of the entire duodenum with adjacent fluid ; rule out esophagitis/ gastritis and/or duodenitis. Rule out peptic ulcer disease. Rule out inflammatory changes possibly due to an acute pancreatitis. The pancreas is not well delineated though significant infiltration and fluid within the mesenteries surrounding the pancreas. Correlation with serum amylase and lipase to exclude the possibility of concomitant acute pancreatitis. Note also made of a small hyperdense focus within the pancreatic tail region. Possibility of a pancreatic mass not excluded. Consider followup pre and post-contrast MRI of the pancreas. The liver is enlarged and exhibits nodular surface. Findings may represent underlying cirrhosis. Borderline/mild splenomegaly. Edema and/or submucosal fatty deposition within wall of the cecum and ascending colon. Rule out acute colitis versus submucosal fatty deposition due to chronic colitis.
[2017-09-29] MEDS ORDERED: Lidocaine 1% Inj (20ml) ONE (13:59)
--- NOTE | 2017-09-29 14:54 | PCM.SURG1 ---
Surgeon's Initial Post Op Note - Surgeon's Notes Surgeon: Herrera Peralta MD Apricot Washer: None Type of Anesthesia: Local Pre-Operative Diagnosis: Ascites Operative Findings: Moderate volume ascites Post-Operative Diagnosis: same Operation Performed: US Guided paracentesis Specimen/Specimens Removed: 3.5 liters straw colored fluid removed. sample submitted. Estimated Blood Loss: EBL {In ML}: 0 Date of Surgery/Procedure: 09/29/17 Time of Surgery/Procedure: 14:45
--- NOTE | 2017-09-29 16:38 | US ---
PROCEDURE: ULTRASOUND-GUIDED PARACENTESIS CLINICAL HISTORY: 42-year-old male with symptomatic ascites is referred to Interventional Radiology for ultrasound-guided paracentesis. COMPARISON: Correlation is made to MRI of the abdomen dated 09/27/2017. PROCEDURE: 1. Ultrasound-guided paracentesis. PRE-PROCEDURE FINDINGS: 1. Moderate volume ascites. POST-PROCEDURE FINDINGS: 1. No evidence of post-procedural complication. INTERVENTIONAL RADIOLOGIST: Herrera Peralta M.D. (the attending was present for the entire procedure) ANESTHESIA: None. MEDICATION: Lidocaine 1% for local subcutaneous analgesia. COMPLICATIONS: None. PROCEDURE DESCRIPTION AND FINDINGS: The risks, benefits, alternatives and possible complications of the procedure were fully discussed; all questions were answered and informed consent was obtained. The patient was brought into the interventional suite and a pre-procedure 'time-out' was performed. The patient was placed on the fluoroscopy table in the supine position. Preliminary ultrasound images of the right lower quadrant demonstrate a moderate amount of ascites. The right lower quadrant was prepped and draped in the usual sterile fashion. Maximum sterile barrier precautions were maintained throughout the entire procedure. Following subcutaneous infiltration of lidocaine 1% for local analgesia, under real-time ultrasound guidance, a 5 Mexican centesis catheter was advanced into the right lower quadrant with real-time visualization of needle entry. The ultrasound images were permanently recorded and submitted to the PACS. The inner stylet was removed and the catheter was attached to gentle vacuum suction. A total of 3.5 liters of straw-colored fluid were aspirated. A sample was submitted to the laboratory for analysis. The drainage catheter was then removed. A sterile adhesive bandage was placed over the puncture site. The patient tolerated the procedure well without immediate post-procedure complications and was transferred back to the floor in stable condition. IMPRESSION: SUCCESSFUL ULTRASOUND-GUIDED DIAGNOSTIC AND THERAPEUTIC PARACENTESIS.
--- NOTE | 2017-09-29 17:59 | CP.PCM.PN ---
Subjective - Date & Time of Evaluation Date of Evaluation: 09/29/17 Time of Evaluation: 18:00 - Subjective Subjective: Patient seen and examined bedside. feeling better. s/p abdominal parasenthesis today with removal of 3.5 L straw colored fluid. No acute issues overnight Hemodynamically stable, afebrile, BP 110/88 HR 78 saturating 100 % on 2 L O2 via NC Objective - Vital Signs/Intake and Output Vital Signs (last 24 hours): Temp Pulse Resp BP Pulse Ox 98.4 F 78 15 123/80 100 09/29/17 14:57 09/29/17 14:57 09/29/17 14:57 09/29/17 14:57 09/29/17 14:57 Intake and Output: 09/29/17 09/29/17 06:59 18:59 Intake Total 50 Output Total 560 4050 Balance -510 -4050 - Medications Medications: Current Medications Artificial Tears (Artificial Tears) 2 drop OU Q4 PRN PRN Reason: Dry eyes Last Admin: 09/29/17 08:37 Dose: 2 drop Chlordiazepoxide (Librium) 10 mg PO Q8 PRN PRN Reason: withdrawal sx: tremors, agitat Last Admin: 09/28/17 16:07 Dose: 10 mg Folic Acid (Folic Acid) 1 mg PO DAILY [facility] Last Admin: 09/29/17 08:36 Dose: 1 mg Pantoprazole Sodium (Protonix Ec Tab) 40 mg PO BID [facility] Last Admin: 09/29/17 16:44 Dose: 40 mg Spironolactone (Aldactone) 25 mg PO BID [facility] Last Admin: 09/29/17 16:44 Dose: 25 mg Thiamine HCl (Vitamin B1 Tab) 100 mg PO DAILY [facility] Last Admin: 09/29/17 08:36 Dose: 100 mg - Labs Labs: 09/29/17 04:35 09/29/17 04:35 PT 15.1 Seconds (9.8-13.1) H 09/29/17 04:35 INR 1.4 (0.9-1.2) H 09/29/17 04:35 APTT 35.8 Seconds (25.6-37.1) 09/26/17 07:00 - Constitutional Appears: Non-toxic, No Acute Distress - Head Exam Head Exam: ATRAUMATIC, NORMAL INSPECTION, NORMOCEPHALIC - Eye Exam Eye Exam: EOMI, Normal appearance, PERRL Pupil Exam: NORMAL ACCOMODATION - ENT Exam ENT Exam: Mucous Membranes Moist, Normal Exam - Neck Exam Neck Exam: Full ROM, Normal Inspection - Respiratory Exam Respiratory Exam: Clear to Ausculation Bilateral, NORMAL BREATHING PATTERN. absent: Rales, Rhonchi, Wheezes - Cardiovascular Exam Cardiovascular Exam: REGULAR RHYTHM, RRR, +S1, +S2. absent: JVD - GI/Abdominal Exam GI & Abdominal Exam: Soft, Normal Bowel Sounds. absent: Distended, Guarding, Tenderness, Rebound - Rectal Exam Rectal Exam: Deferred - Extremities Exam Extremities Exam: Full ROM, Normal Capillary Refill, Normal Inspection - Back Exam Back Exam: NORMAL INSPECTION - Neurological Exam Neurological Exam: Alert, Awake, CN II-XII Intact, Oriented x3 - Psychiatric Exam Psychiatric exam: Normal Affect, Normal Mood - Skin Skin Exam: Dry, Intact Additional comments: jaundiced Assessment and Plan - Assessment and Plan (Free Text) Assessment: 42 y/o male with PMH of heavy ETOH abuse was brought to ER for evaluation by family for weakness, jaundice ,SOB and abdominal distention. As per patient and family he drinks every day large quantity of Alcohol In ER patient found to have Hgb 2.6 lactate 19 total melisa 1.9 INR 1.7 HCO3 5 Guaic positive . Patient was admitted in ICU transfused with 6 unit PRBC, 2 FFP and 1 plt Imaging showed liver cirrhosis , ascites GI was consulted . Today underwent abdominal parasenthesis with reomoval 3.5 l of ascitic fluid.Plan for EGD and colonoscopy Will transfer top telemetry 1. Severe Anemia with Hgb 2.6 on admission prob sec to GI Bleed ( ? Esoph Varices) admitted in ICU and transfused 6 unit PRBC and 2 FFP and 1 PlateletT. GI consulted Plan for EGD Given the low levels of Hgb most likely this is not an acute blood loss anemia. cont PO Protonix tolerating PO diet 2. Alcohol liver cirrhosis / coagulopathy/ascites no signs of withdrawal terrance Librium to 5 mg po TID Continue thiamine and folic acid s/p abdominal parasenthesis. F/ufluid analysis 3.Lactic acidosis / dehydration / alcoholic ketoacidosis Most likely secondary to severe anemia with end organ hypoperfusion Lactic acid 19 on admission trending down 4. Unlikely Sepsis no clear source of infection at present ,but patient was tachycardic , WBC 12 with left shift ,lactate 19 Blood c/s and Urine c/s : negative WBC went down without abx, no fever 5. DVt prophylaxis SCD no anticoag sec to coagulopathy
[2017-09-29 18:45] LABS: HEMOGLOBIN 10.2 g/dL (12.0-18.0); MEAN CELL VOLUME 86.5 fl (80.0-94.0); MEAN CORPUSCULAR HEMOGLOBIN 27.8 pg (27.0-31.0); MEAN CORPUSCULAR HGB CONC 32.1 g/dL (33.0-37.0); RBC 3.67 Mil/uL (4.40-5.90); RED CELL DISTRIBUTION WIDTH 20.8 % (11.5-14.5); WHITE BLOOD COUNT 9.5 K/uL (4.8-10.8)
--- NOTE | 2017-09-29 20:57 | CP.PCM.PN ---
Subjective - Date & Time of Evaluation Date of Evaluation: 09/29/17 Time of Evaluation: 13:00 - Subjective Subjective: Patient with no overt GI bleeding since admission. Having parascentesis today. Objective - Vital Signs/Intake and Output Vital Signs (last 24 hours): Temp Pulse Resp BP Pulse Ox 98.1 F 88 24 136/85 100 09/29/17 16:00 09/29/17 18:00 09/29/17 18:00 09/29/17 18:00 09/29/17 18:00 Intake and Output: 09/29/17 09/30/17 18:59 06:59 Intake Total 280 Output Total 4600 Balance -4320 - Medications Medications: Current Medications Artificial Tears (Artificial Tears) 2 drop OU Q4 PRN PRN Reason: Dry eyes Last Admin: 09/29/17 08:37 Dose: 2 drop Chlordiazepoxide (Librium) 5 mg PO Q8 [facility] Folic Acid (Folic Acid) 1 mg PO DAILY [facility] Last Admin: 09/29/17 08:36 Dose: 1 mg Pantoprazole Sodium (Protonix Ec Tab) 40 mg PO BID [facility] Last Admin: 09/29/17 19:24 Dose: 40 mg Spironolactone (Aldactone) 25 mg PO BID [facility] Last Admin: 09/29/17 16:44 Dose: 25 mg Thiamine HCl (Vitamin B1 Tab) 100 mg PO DAILY [facility] Last Admin: 09/29/17 08:36 Dose: 100 mg - Labs Labs: 09/29/17 18:29 09/29/17 04:35 PT 15.1 Seconds (9.8-13.1) H 09/29/17 04:35 INR 1.4 (0.9-1.2) H 09/29/17 04:35 APTT 35.8 Seconds (25.6-37.1) 09/26/17 07:00 - Head Exam Head Exam: ATRAUMATIC - Eye Exam Eye Exam: Normal appearance - ENT Exam ENT Exam: Normal Exam - Neck Exam Neck Exam: Full ROM - Respiratory Exam Respiratory Exam: Clear to Ausculation Bilateral - Cardiovascular Exam Cardiovascular Exam: REGULAR RHYTHM, +S1, +S2 - GI/Abdominal Exam GI & Abdominal Exam: Distended, Normal Bowel Sounds Assessment and Plan (1) Anemia Assessment & Plan: Clinically doing well with stable Hgb post transfusion. After discussion with anasthesia it was decided to postpone EGD to after parascentesis. Will do upper endoscopy Friday. No evidence of alcohol withdrawal. Diuretics had been started. Status: Acute
[2017-09-30] MEDS: guaiFENesin 100 mg/5 ml Syrup UD PO PRN ×2 (01:59→17:35)
--- NOTE | 2017-09-30 03:26 | PN ---
DATE: 09/29/2017 CRITICAL CARE PROGRESS NOTE LOCATION: ICU, bed 427. SUBJECTIVE: The patient is seen and evaluated at the bedside. Events since admission noted. Past medical, surgical and social history reviewed. A 42-year-old male with history of alcohol dependence. Admitted with generalized weakness, abdominal distention and yellowish tint of both eyes, noted to have liver cirrhosis with ascites. Had hemoglobin of 2.6 on admission, status post transfusion of multiple units of packed red blood cells and fresh frozen plasma. Underwent ultrasound-guided paracentesis and drained 3.5 liters straw-colored fluid. Samples sent for lab evaluation. Remains alert and awake, follows commands appropriate. No distress noted. No sign of withdrawal symptoms or signs visible. OBJECTIVE: VITAL SIGNS: Temperature 98.4, heart rate 78 regular, blood pressure 123/80, mean arterial pressure 94, oxygen saturation 100%. Intake 300, output 1760, negative balance 1460, plus 3.5 liters of paracentesis. HEAD, EYES, EARS, NOSE AND THROAT: Pupils are reactive. Conjunctivae and sclerae are anicteric. NECK: Supple. CHEST: Bilateral breath sounds diminished in intensity. HEART: Rhythm regular. S1, S2 normal. ABDOMEN: Distended. Bowel sounds are present. Soft, nontender. EXTREMITIES: With dependent edema. NEUROLOGICAL: Nonfocal. CURRENT MEDICATIONS: Artificial tears 2 drop both eyes q.4 p.r.n., Librium 10 mg p.o. q.8 p.r.n., folic acid 1 mg daily, Protonix EC 40 mg p.o. b.i.d., Aldactone 25 mg p.o. b.i.d., vitamin B1 100 mg daily. LABORATORY DATA: WBC 9.3, hemoglobin 8.8, hematocrit 27.6, platelet count of 113. PT 15.1, INR 1.4. SMA-7; sodium 136, potassium 3.4, chloride 106, CO2 23, blood urea nitrogen 8, creatinine 0.6, calcium 7.4, magnesium 2.4, total bilirubin 5.4, AST 81, ALT 43, alkaline phosphatase 110, total protein 5.9, albumin 2.3. Urinalysis; rbc 22, wbc not done. Stool occult blood positive. Total protein less than 2 g. Toxicology; alcohol level less than 10, serum ketones negative, opiates negative. Serology influenza A and B are negative. Microbiology; blood culture no growth, urine culture no growth, MRSA nasal smear negative. Abdominal x-ray on 09/27/2017 shows no evidence of acute mechanical bowel obstruction. CT abdomen shows edema and/or submucosal fatty deposition within the wall of the cecum and ascending colon - ? acute mild colitis, moderate size left-sided effusion and mild left basilar atelectasis, cardiomegaly, hiatal hernia. Pancreas is not well delineated. Abdominal MRI; moderate left and a small right pleural effusion, bibasilar left more than right nonspecific infiltrate/consolidation consistent with atelectasis and/or pneumonia, peripancreatic fluid and inflammatory change representing reactive changes versus pancreatitis, cirrhotic liver disease with ascites. IMPRESSION: 1. Neuro: Alert and awake. No evidence of hepatic encephalopathy. 2. Pulmonary: Bilateral pleural effusion with atelectasis secondary to transudation from ascites. 3. Cardiac: No arrhythmias noted. 4. GI: Liver cirrhosis with ascites, chronic pancreatic inflammatory changes secondary to daily EtOH intake.for diagnostic, therapeutic paracentesis.today. 5. Renal: No acute issues noted. Hypokalemia; supplement potassium. 6. Endocrine: No history of hypothyroidism and/or diabetes. Closelymonitor for reaccumulation of ascites or respiratory compromise, alcohol withdrawal. Continue Librium as needed. PLAN: Discussed with GI. Scheduled for EGD next Friday. Олег Sal MD [facility]ITALJacob
[2017-09-30 05:34] LABS: HEMOGLOBIN 9.2 g/dL (12.0-18.0); MEAN CELL VOLUME 87.2 fl (80.0-94.0); MEAN CORPUSCULAR HEMOGLOBIN 27.5 pg (27.0-31.0); MEAN CORPUSCULAR HGB CONC 31.5 g/dL (33.0-37.0); RBC 3.33 Mil/uL (4.40-5.90); RED CELL DISTRIBUTION WIDTH 21.9 % (11.5-14.5); WHITE BLOOD COUNT 9.7 K/uL (4.8-10.8)
[2017-09-30 06:03] LABS: ALB/GLOB RATIO 0.6 (1.0-2.1); ALBUMIN 2.3 g/dL (3.5-5.0); ALT/SGPT 39 U/L (21-72); AST/SGOT 56 U/L (17-59); BLOOD UREA NITROGEN 8 mg/dl (9-20); CALCIUM 7.7 mg/dL (8.4-10.2); GFR AFRICAN-AMERICAN > 60; GFR NON-AFRICAN AMERICAN > 60
[2017-09-30] MEDS: Artificial Tears Opht Soln OU PRN ×2 (09:27→17:36)
[2017-09-30] MEDS: Pantoprazole 40 mg EC Tab PO SCH ×2 (09:28→17:36)
--- NOTE | 2017-09-30 10:39 | CP.PCM.PN ---
Subjective - Date & Time of Evaluation Date of Evaluation: 09/30/17 Time of Evaluation: 08:30 - Subjective Subjective: Patient was seen and examined bedside. Feeling better. Denies any abdominal pain , CP, SOB , palpitations. Had 2 BM last night with small blood. No acute issues overnight H & H stable Tolerating PO intake For EGD IN AM BP101/59 HR 99 t 99.2 WBC 9.7 Hgb 9.2 PLT 118 k Objective - Vital Signs/Intake and Output Vital Signs (last 24 hours): Temp Pulse Resp BP Pulse Ox 99.2 F 99 H 17 101/59 L 96 09/30/17 08:00 09/30/17 08:00 09/30/17 08:00 09/30/17 08:00 09/30/17 08:00 Intake and Output: 09/30/17 09/30/17 06:59 18:59 Intake Total 180 Output Total 550 Balance -370 - Medications Medications: Current Medications Artificial Tears (Artificial Tears) 2 drop OU Q4 PRN PRN Reason: Dry eyes Last Admin: 09/30/17 09:27 Dose: 2 drop Chlordiazepoxide (Librium) 5 mg PO Q8 [facility] Last Admin: 09/30/17 02:00 Dose: 5 mg Folic Acid (Folic Acid) 1 mg PO DAILY [facility] Last Admin: 09/30/17 09:27 Dose: 1 mg Guaifenesin (Robitussin) 100 mg PO Q6 PRN PRN Reason: Cough Last Admin: 09/30/17 01:59 Dose: 100 mg Pantoprazole Sodium (Protonix Ec Tab) 40 mg PO BID [facility] Last Admin: 09/30/17 09:28 Dose: 40 mg Spironolactone (Aldactone) 25 mg PO BID [facility] Last Admin: 09/30/17 09:27 Dose: 25 mg Thiamine HCl (Vitamin B1 Tab) 100 mg PO DAILY [facility] Last Admin: 09/30/17 09:27 Dose: 100 mg - Labs Labs: 09/30/17 04:45 09/30/17 04:45 PT 15.1 Seconds (9.8-13.1) H 09/29/17 04:35 INR 1.4 (0.9-1.2) H 09/29/17 04:35 APTT 35.8 Seconds (25.6-37.1) 09/26/17 07:00 - Constitutional Appears: Non-toxic, No Acute Distress, Chronically Ill - Head Exam Head Exam: ATRAUMATIC, NORMAL INSPECTION, NORMOCEPHALIC - Eye Exam Eye Exam: EOMI, Normal appearance, PERRL Pupil Exam: NORMAL ACCOMODATION - ENT Exam ENT Exam: Mucous Membranes Moist, Normal Exam - Neck Exam Neck Exam: Full ROM, Normal Inspection - Respiratory Exam Respiratory Exam: Clear to Ausculation Bilateral. absent: Rales, Rhonchi, Wheezes, Respiratory Distress - Cardiovascular Exam Cardiovascular Exam: REGULAR RHYTHM, RRR, +S1, +S2. absent: JVD - GI/Abdominal Exam GI & Abdominal Exam: Distended, Soft, Normal Bowel Sounds. absent: Guarding, Tenderness, Rebound - Rectal Exam Rectal Exam: Deferred - Extremities Exam Extremities Exam: Normal Capillary Refill, Normal Inspection, Pedal Edema (2 +) . absent: Calf Tenderness - Back Exam Back Exam: NORMAL INSPECTION - Neurological Exam Neurological Exam: Alert, Awake, CN II-XII Intact, Oriented x3 - Psychiatric Exam Psychiatric exam: Normal Affect, Normal Mood - Skin Skin Exam: Dry, Intact, Warm Additional comments: jaundiced Assessment and Plan - Assessment and Plan (Free Text) Assessment: 42 y/o male with PMH of heavy ETOH abuse was brought to ER for evaluation by family for weakness, jaundice ,SOB and abdominal distention. As per patient and family he drinks every day large quantity of Alcohol In ER patient found to have Hgb 2.6 lactate 19 total melisa 1.9 INR 1.7 HCO3 5 Guaic positive . Patient was admitted in ICU transfused with 6 unit PRBC, 2 FFP and 1 plt Imaging showed liver cirrhosis , ascites GI was consulted . He underwent abdominal parasenthesis with removal 3.5 l of ascitic fluid. Plan for EGD in AM 1. Severe Anemia with Hgb 2.6 on admission prob sec to GI Bleed ( ? Esoph Varices) admitted in ICU and transfused 6 unit PRBC and 2 FFP and 1 PlateletT. GI consulted Plan for EGD in AM Given the low levels of Hgb most likely this is not an acute blood loss anemia. cont PO Protonix tolerating PO diet KEEP NPO past midnight for EGD in AM 2. Alcohol liver cirrhosis / coagulopathy/ascites no signs of withdrawal terrance Librium off Continue thiamine and folic acid s/p abdominal parasenthesis. F/u fluid analysis 3.Lactic acidosis / dehydration / alcoholic ketoacidosis Most likely secondary to severe anemia with end organ hypoperfusion Lactic acid 19 on admission trending down 4. Unlikely Sepsis no clear source of infection at present ,but patient was tachycardic , WBC 12 with left shift ,lactate 19 Blood c/s and Urine c/s : negative WBC went down without abx, no fever 5. DVt prophylaxis SCD no anticoag sec to coagulopathy
--- NOTE | 2017-10-01 00:25 | PN ---
DATE: 09/30/2017 CRITICAL CARE PROGRESS NOTE LOCATION: Patient is in ICU, bed 427. SUBJECTIVE: Patient is seen and evaluated at the bedside. Events since admission noted. Past medical, surgical, social history reviewed. A 42-year-old male with history of alcohol dependence, admitted with generalized weakness; abdominal distention and yellowish tint of both eyes; noted to have a liver cirrhosis with ascites, status post paracentesis, drained 3.5 liters of straw-colored fluid; abdominal distention, reduced; status post transfusion multiple units of packed red blood cells with improvement in hemoglobin. No further hematemesis or melena noted. No pain in the abdomen. No dysuria. PHYSICAL EXAMINATION: VITAL SIGNS: Temperature 98.7, heart rate 99 to 118 and regular; blood pressure 101 to 130 over 59 to 92; respiratory rate 23, thoracoabdominal; saturation 97%, on oxygen supplement 2 liters nasal cannula. Intake 460 mL, output 5150, negative balance of 4690. HEAD, EYES, EARS, NOSE AND THROAT: Pupils are reactive. Sclerae icteric. NECK: Short neck. Reduced oropharyngeal air space. CHEST: Bilateral breath sounds, diminished intensity. HEART: Rhythm regular. S1, S2 normal. ABDOMEN: Distended. Bowel sounds present. Soft. GENITALIA: No scrotal edema. EXTREMITIES: Dependent edema. Dorsalis pedis palpable, equal in intensity, symmetric. No skin breakdown. NEUROLOGIC: Nonfocal. CURRENT MEDICATIONS: Include artificial tears two drops both eyes q. 4 p.r.n. for dry eyes, Librium 5 mg p.o. q. 8, folic acid 1 mg p.o. daily, guaifenesin 100 mg p.o. q. 6 p.r.n., Protonix EC tab 40 mg p.o. twice daily, Aldactone 25 mg p.o. b.i.d., thiamine 100 mg p.o. daily. LABORATORY DATA: WBC 9.7, hemoglobin 9.2, hematocrit 29.1, platelet count of 118. PT 15.1, INR 1.4. SMA-7: Sodium 138, potassium 4.4, chloride 105, CO2 26, blood urea nitrogen 80, creatinine 0.6, calcium 7.7, total bilirubin 6, AST 56, ALT 39, alkaline phosphatase 145, total protein 6.1, albumin 2.3. Urinalysis negative with ascetic fluid less than 2. Stool occult blood positive. Toxicology screen negative. Influenza A and B negative. Microbiology: Blood culture, no growth. Urine culture, no growth. IMPRESSION: 1. Neurologic: Resolved metabolic/hepatic encephalopathy. 2. Pulmonary: Small pleural effusion bilaterally with atelectasis secondary to transudation into the pleural cavity from ascites. 3. Cardiac: No arrhythmias noted. 4. Gastrointestinal: Liver cirrhosis with ascites, chronic pancreatic inflammatory changes secondary to daily EtOH intake, scheduled for status post paracentesis. Awaiting EGD tomorrow. 5. Renal: No acute issues noted. No electrolyte abnormalities. 6. Endocrine: No history of thyroid or diabetes. Maintain adequate nutritional status. 7. Hematology: Thrombocytopenia, improved, related to EtOH liver cirrhosis, status post transfusion of multiple units of packed red blood cells with improved hemoglobin. Awaiting for EGD tomorrow. No active hematemesis or melena noted. Stool guaiac positive. Continue spironolactone, thiamine, Protonix, guaifenesin, Librium as needed, folic acid. Олег Sal MD
[2017-10-01 06:57] LABS: HEMOGLOBIN 9.5 g/dL (12.0-18.0); MEAN CELL VOLUME 86.6 fl (80.0-94.0); MEAN CORPUSCULAR HEMOGLOBIN 28.2 pg (27.0-31.0); MEAN CORPUSCULAR HGB CONC 32.6 g/dL (33.0-37.0); RBC 3.36 Mil/uL (4.40-5.90); RED CELL DISTRIBUTION WIDTH 23.3 % (11.5-14.5); WHITE BLOOD COUNT 10.5 K/uL (4.8-10.8)
[2017-10-01 07:13] LABS: ALB/GLOB RATIO 0.6 (1.0-2.1)
[2017-10-01 07:31] LABS: INR 1.3 (0.9-1.2)
[2017-10-01 07:34] LABS: ALBUMIN 2.4 g/dL (3.5-5.0); ALT/SGPT 41 U/L (21-72); AST/SGOT 50 U/L (17-59); BLOOD UREA NITROGEN 9 mg/dl (9-20); CALCIUM 8.1 mg/dL (8.4-10.2); GFR AFRICAN-AMERICAN > 60; GFR NON-AFRICAN AMERICAN > 60
[2017-10-01] MEDS ORDERED: Sodium Chloride 0.9% 500 ML IV ONE (08:19)
[2017-10-01] MEDS ORDERED: Lidocaine 2% MPF (5 ml) Inj ONE (08:46)
[2017-10-01] MEDS ORDERED: Propofol 10 mg/ml Inj (20 ML) ONE (08:46)
[2017-10-01] MEDS: Pantoprazole 40 mg EC Tab PO SCH ×2 (10:24→16:30)
--- NOTE | 2017-10-01 12:34 | CP.PCM.PN ---
Objective - Vital Signs/Intake and Output Vital Signs (last 24 hours): Temp Pulse Resp BP Pulse Ox 98.6 F 95 H 20 110/75 99 10/01/17 09:15 10/01/17 09:15 10/01/17 09:15 10/01/17 09:15 10/01/17 09:15 Intake and Output: 10/01/17 10/01/17 06:59 18:59 Intake Total 50 150 Balance 50 150 - Medications Medications: Current Medications Artificial Tears (Artificial Tears) 2 drop OU Q4 PRN PRN Reason: Dry eyes Last Admin: 09/30/17 17:36 Dose: 2 drop Folic Acid (Folic Acid) 1 mg PO DAILY [facility] Last Admin: 10/01/17 10:24 Dose: 1 mg Guaifenesin (Robitussin) 100 mg PO Q6 PRN PRN Reason: Cough Last Admin: 09/30/17 17:35 Dose: 100 mg Pantoprazole Sodium (Protonix Ec Tab) 40 mg PO BID [facility] Last Admin: 10/01/17 10:24 Dose: 40 mg Spironolactone (Aldactone) 25 mg PO BID [facility] Last Admin: 10/01/17 10:23 Dose: 25 mg Thiamine HCl (Vitamin B1 Tab) 100 mg PO DAILY [facility] Last Admin: 10/01/17 10:24 Dose: 100 mg - Labs Labs: 10/01/17 04:45 10/01/17 04:45 PT 15.0 Seconds (9.8-13.1) H 10/01/17 04:45 INR 1.3 (0.9-1.2) H 10/01/17 04:45 APTT 35.8 Seconds (25.6-37.1) 09/26/17 07:00
--- NOTE | 2017-10-01 15:36 | PCM.SURG1 ---
Surgeon's Initial Post Op Note - Surgeon's Notes Surgeon: Chandrakant Gabriel MD Director Ehs: NONE Type of Anesthesia: Local Pre-Operative Diagnosis: Ascites Operative Findings: US showed small amount of ascites Post-Operative Diagnosis: Ascites Operation Performed: US guided paracentesis. Specimen/Specimens Removed: 3.1 LITERS of straw colored fluid Estimated Blood Loss: EBL {In ML}: 0 Blood Products Given: N/A Drains Used: No Drains Post-Op Condition: Fair Date of Surgery/Procedure: 10/01/17 Time of Surgery/Procedure: 15:30
[2017-10-01 16:30] VITALS: BP 116/74; PULSE 110; RESP 14; TEMP 99.2; O2SAT 96
--- NOTE | 2017-10-01 21:33 | CP.PCM.DIS ---
Provider - Provider Date of Admission: 09/25/17 16:47 Attending physician: Angelika Bethea MD Primary care physician: None Consults: GI consult Time Spent in preparation of Discharge (in minutes): 20 Hospital Course - Lab Results Lab Results: Micro Results 09/25/17 18:25 Blood Blood Culture - Final NO GROWTH AFTER 5 DAYS 09/25/17 18:25 Blood Gram Stain - Final TEST NOT PERFORMED 09/25/17 15:25 Blood Blood Culture - Final NO GROWTH AFTER 5 DAYS 09/25/17 15:25 Blood Gram Stain - Final TEST NOT PERFORMED 09/25/17 07:54 Naris MRSA Culture (Admit) - Final MRSA NOT DETECTED 09/25/17 17:11 Urine Urine Culture - Final No Growth (<1,000 CFU/ML) Most Recent Lab Values WBC 10.5 K/uL (4.8-10.8) 10/01/17 04:45 RBC 3.36 Mil/uL (4.40-5.90) L 10/01/17 04:45 Hgb 9.5 g/dL (12.0-18.0) L 10/01/17 04:45 Hct 29.1 % (35.0-51.0) L 10/01/17 04:45 MCV 86.6 fl (80.0-94.0) 10/01/17 04:45 MCH 28.2 pg (27.0-31.0) 10/01/17 04:45 MCHC 32.6 g/dL (33.0-37.0) L 10/01/17 04:45 RDW 23.3 % (11.5-14.5) H 10/01/17 04:45 Plt Count 136 K/uL (130-400) 10/01/17 04:45 MPV 9.4 fl (7.2-11.7) 09/26/17 04:35 Neut % (Auto) 77.3 % (50.0-75.0) H 09/26/17 04:35 Lymph % (Auto) 10.5 % (20.0-40.0) L 09/26/17 04:35 [place] % (Auto) 12.0 % (0.0-10.0) H 09/26/17 04:35 Eos % (Auto) 0.0 % (0.0-4.0) 09/26/17 04:35 Baso % (Auto) 0.2 % (0.0-2.0) 09/26/17 04:35 Neut # 12.2 K/uL (1.8-7.0) H 09/26/17 04:35 Lymph # 1.7 K/uL (1.0-4.3) 09/26/17 04:35 [place] # 1.9 K/uL (0.0-0.8) H 09/26/17 04:35 Eos # 0.0 K/uL (0.0-0.7) 09/26/17 04:35 Baso # 0.0 K/uL (0.0-0.2) 09/26/17 04:35 Neutrophils % (Manual) 76 % (42-75) H 09/25/17 15:25 Band Neutrophils % 2 % (0-2) 09/25/17 15:25 Lymphocytes % (Manual) 11 % (20-50) L 09/25/17 15:25 Monocytes % (Manual) 10 % (0-10) 09/25/17 15:25 Basophils % (Manual) 1 % (0-2) 09/25/17 15:25 Platelet Estimate Normal (NORMAL) 09/25/17 15:25 Large Platelets Present 09/25/17 15:25 Hypochromasia (manual) Moderate 09/25/17 15:25 Poikilocytosis (manual Moderate 09/25/17 15:25 Anisocytosis (manual) Marked 09/25/17 15:25 Microcytosis (manual) Marked 09/25/17 15:25 Target Cells Moderate 09/25/17 15:25 Ovalocytes Slight 09/25/17 15:25 Schistocytes Slight 09/25/17 15:25 PT 15.0 Seconds (9.8-13.1) H 10/01/17 04:45 INR 1.3 (0.9-1.2) H 10/01/17 04:45 APTT 35.8 Seconds (25.6-37.1) 09/26/17 07:00 pCO2 13 mm/Hg (35-45) L* 09/25/17 15:40 pO2 31 mm/Hg (30-55) 09/25/17 21:27 HCO3 11.9 mmol/L (21-28) L 09/25/17 15:40 ABG pH 7.31 (7.35-7.45) L 09/25/17 15:40 ABG Total CO2 6.9 mmol/L (22-28) L 09/25/17 15:40 ABG O2 Saturation 102.6 % (95-98) H 09/25/17 15:40 ABG Base Excess -16.8 mmol/L (-2.0-3.0) L 09/25/17 15:40 Sanjay Test Yes 09/25/17 15:40 ABG Potassium 3.5 mmol/L (3.6-5.2) L 09/25/17 15:40 VBG pH 7.30 (7.32-7.43) L 09/25/17: VBG pCO2 21 mmHg (40-60) L 09/25/17: VBG HCO3 12.8 mmol/L 09/25/17: VBG Total CO2 10.9 mmol/L (22-28) L 09/25/17: VBG O2 Sat (Calc) 67.9 % (40-65) H 09/25/17: VBG Base Excess -13.9 mmol/L (0.0-2.0) L 09/25/17: VBG Potassium 4.5 mmol/L (3.6-5.2) 09/25/17: A-a O2 Difference 119.0 mm/Hg 09/25/17 15: Sodium 134.0 mmol/L (132-148) 09/25/17: Chloride 103.0 mmol/L (98-107) 09/25/17: Glucose 125 mg/dL (75-110) H 09/25/17: Lactate 12.5 mmol/L (0.7-2.1) H* 09/25/17: FiO2 100.0 % 09/25/17: Crit Value Called To Juan johnson 09/25/17: Crit Value Called By Patria george 09/25/17: Crit Value Read Back Y 09/25/17: Blood Gas Notified Time 213209/25/17 21: Sodium 137 mmol/l (132-148) 10/01/17 04:45 Potassium 5.0 MMOL/L (3.6-5.0) 10/01/17 04:45 Chloride 103 mmol/L (98-107) 10/01/17 04:45 Carbon Dioxide 25 mmol/L (22-30) 10/01/17 04:45 Anion Gap 14 (10-20) 10/01/17 04:45 BUN 9 mg/dl (9-20) 10/01/17 04:45 Creatinine 0.6 mg/dl (0.8-1.5) L 10/01/17 04:45 Est GFR ( Amer) > 60 10/01/17 04:45 Est GFR (Non-Af Amer) > 60 10/01/17 04:45 Random Glucose 93 mg/dL (75-110) 10/01/17 04:45 Serum Osmolality 311 mosm/kg (272-300) H 09/25/17 16:53 Lactic Acid 4.0 MMOL/L (0.7-2.1) H 09/26/17 07:00 Calcium 8.1 mg/dL (8.4-10.2) L 10/01/17 04:45 Phosphorus 2.4 mg/dl (2.5-4.5) L 09/26/17 04:35 Magnesium 2.4 MG/DL (1.6-2.3) H 09/28/17 06:55 Iron 12 ug/dL (49-181) L 09/25/17 21:03 TIBC 297 ug/dL (250-450) 09/25/17 21:03 % Saturation 4 % (20-55) L 09/25/17 21:03 Total Bilirubin 5.0 mg/dl (0.2-1.3) H 10/01/17 04:45 AST 50 U/L (17-59) 10/01/17 04:45 ALT 41 U/L (21-72) 10/01/17 04:45 Alkaline Phosphatase 149 U/L (38-126) H 10/01/17 04:45 Ammonia 49 umo/L (16-60) 09/25/17 15:25 Troponin I 0.0490 ng/mL (0.00-0.120) 09/25/17 15:25 NT-Pro-B Natriuret Pep 212 pg/ml (0-450) 09/25/17 15:25 Total Protein 6.3 G/DL (6.3-8.2) 10/01/17 04:45 Albumin 2.4 g/dL (3.5-5.0) L 10/01/17 04:45 Globulin 3.9 gm/dL (2.2-3.9) 10/01/17 04:45 Albumin/Globulin Ratio 0.6 (1.0-2.1) L 10/01/17 04:45 Lipase 491 U/L (23-300) H 09/25/17 15:25 Alpha Fetoprotein 3.1 IU/mL (0.0-7.22) 09/29/17 04:35 CA 19-9 Antigen 35.0 U/mL (0-37) 09/25/17 20:59 Vitamin B12 328 pg/mL (239-931) 09/26/17 05:00 Folate 11.6 ng/mL 09/26/17 05:00 Arterial Blood Potassium 3.5 mmol/L (3.6-5.2) L 09/25/17 15:40 Venous Blood Potassium 4.5 mmol/L (3.6-5.2) 09/25/17 21:27 Urine Color Yellow (YELLOW) 09/25/17 18:19 Urine Clarity Slighty-cloudy (Clear) 09/25/17 18:19 Urine pH 5.0 (5.0-8.0) 09/25/17 18:19 Ur Specific [place] 1.011 (1.003-1.030) 09/25/17 18:19 Urine Protein Negative mg/dL (NEGATIVE) 09/25/17 18:19 Urine Glucose (UA) Neg mg/dL (Normal) 09/25/17 18:19 Urine Ketones Trace mg/dL (NEGATIVE) 09/25/17 18:19 Urine Blood Negative (NEGATIVE) 09/25/17 18:19 Urine Nitrate Negative (NEGATIVE) 09/25/17 18:19 Urine Bilirubin Negative (NEGATIVE) 09/25/17 18:19 Urine Urobilinogen 0.2-1.0 mg/dL (0.2-1.0) 09/25/17 18:19 Ur Leukocyte Esterase Neg [place]/uL (Negative) 09/25/17 18:19 Urine RBC (Auto) 22 /hpf (0-3) H 09/25/17 18:19 Urine WBC Clumps (Auto) Cancelled 09/25/17 17:11 Urine Microscopic WBC 2 /hpf (0-5) 09/25/17 18:19 Ur Squamous Epith Cells < 1 /hpf (0-5) 09/25/17 18:19 Ur Transition Epith Cell Cancelled 09/25/17 17:11 Ur Renal Epithelial Cell Cancelled 09/25/17 17:11 Calcium Carbonate Cryst Cancelled 09/25/17 17:11 Calcium Phos [place] (Auto) Cancelled 09/25/17 17:11 Calcium Oxalate Crystal Cancelled 09/25/17 17:11 Leucine Crystals Cancelled 09/25/17 17:11 Cystine Crystals Cancelled 09/25/17 17:11 Uric Acid Crystals Cancelled 09/25/17 17:11 Triple Phos Crystals Cancelled 09/25/17 17:11 Tyrosine Crystals Cancelled 09/25/17 17:11 Other Crystals Cancelled 09/25/17 17:11 Amorphous Sediment Cancelled 09/25/17 17:11 Urine Bacteria Rare (<OCC) 09/25/17 18:19 Epithelial Casts (Auto) Cancelled 09/25/17 17:11 Fatty Casts Cancelled 09/25/17 17:11 Hyaline Casts 3-5 /hpf (0-2) H 09/25/17 18:19 Granular Casts (Auto) Cancelled 09/25/17 17:11 Waxy Casts Cancelled 09/25/17 17:11 Broad Casts Cancelled 09/25/17 17:11 RBC Casts Cancelled 09/25/17 17:11 WBC Casts Cancelled 09/25/17 17:11 Other Casts Cancelled 09/25/17 17:11 Urine Trichomonas Cancelled 09/25/17 17:11 Ur Yeast w Hyphae Cancelled 09/25/17 17:11 Urine Yeast (Budding) Cancelled 09/25/17 17:11 Urine Sperm (Auto) Cancelled 09/25/17 17:11 Ur Oval Fat Bodies Auto Cancelled 09/25/17 17:11 Ur Random Sodium 96 meq/L 09/25/17 16:53 Ur Random Potassium 31.8 mmol/L 09/25/17 16:53 Fluid Total Protein < 2.0 g/dL (NONE ESTABLISHED) 09/29/17 14:50 Stool Occult Blood Positive (NEGATIVE) H 09/25/17 17:11 Urine Opiates Screen Negative (NEGATIVE) 09/25/17 17:11 Urine Methadone Screen Negative (NEGATIVE) 09/25/17 17:11 Ur Barbiturates Screen Negative (NEGATIVE) 09/25/17 17:11 Ur Phencyclidine Scrn Negative (NEGATIVE) 09/25/17 17:11 Ur Amphetamines Screen Negative (NEGATIVE) 09/25/17 17:11 U Benzodiazepines Scrn Negative (NEGATIVE) 09/25/17 17:11 U Oth Cocaine Metabols Negative (NEGATIVE) 09/25/17 17:11 U Cannabinoids Screen Negative (NEGATIVE) 09/25/17 17:11 Alcohol, Quantitative < 10 mg/dl (0-10) 09/25/17 15:25 Serum Ketones Negative (NEGATIVE) 09/26/17 04:35 Influenza Typ A,B (EIA) Negative for flu a/b (NEGATIVE) 09/25/17 15:30 Blood Type A POSITIVE 09/26/17 16:42 Blood Type Confirm A POSITIVE 09/25/17 16:19 Antibody Screen Negative 09/26/17 16:42 Crossmatch See Detail 09/26/17 16:42 BBK History Checked Patient has bt 09/26/17 16:42 - Hospital Course Hospital Course: 42 y/o male with PMH of heavy ETOH abuse was brought to ER for evaluation by family for weakness, jaundice ,SOB and abdominal distention. As per patient and family he drinks every day large quantity of Alcohol In ER patient found to have Hgb 2.6 lactate 19 total melisa 1.9 INR 1.7 HCO3 5 Guaic positive . Patient was admitted in ICU transfused with 6 unit PRBC, 2 FFP and 1 plt Imaging showed liver cirrhosis , ascites GI was consulted . He underwent abdominal parasenthesis x 2 during this admission with removal 3.5 l and 3.1 :L of ascitic fluid ( last parasentheiss performed before discharge 10/01). He was started on Protonix for GI bleed as well as spironolactone and low salt diet for liver cirrhosis and ascites He underwent EGD that showed no active bleed , esophageal varices grade I , peptic ulcers. Biopsies were sent. Patient remained hemodynamically stable, tolerating Po intake, abdominal distention improved after parasenthesis, with no overt bleeding episodes, with no abdominal pain. Will discharge patient home Counselled patient on ETOH abuse Recommended follow up with [facility] and GI clinic as well as liver clinic at [facility] Started on Spironolactone and lasix for ascites. Recommended low salt diet will discharge patie nt home with family in stable conditions. 1. Severe Anemia with Hgb 2.6 on admission prob sec to GI Bleed ( ? Esoph Varices) admitted in ICU and transfused 6 unit PRBC and 2 FFP and 1 PlateletT. GI consulted s/p EGD that showed ulcers, varices no active bleeding Biopsies sent cont PO Protonix Given Venofer IV tolerating PO diet 2. Alcohol liver cirrhosis / coagulopathy/ascites no signs of withdrawal tappered Librium off Continue thiamine and folic acid s/p abdominal parasenthesis x 2 Strated Spironolactone and lasix , Low salt diet 3.Lactic acidosis / dehydration / alcoholic ketoacidosis-- resolved Most likely secondary to severe anemia with end organ hypoperfusion Lactic acid 19 on admission trending down 4. Unlikely Sepsis no clear source of infection at present ,but patient was tachycardic , WBC 12 with left shift ,lactate 19 Blood c/s and Urine c/s : negative WBC went down without abx, no fever 5. DVt prophylaxis SCD no anticoag sec to coagulopathy Discharge Exam - Head Exam Head Exam: ATRAUMATIC, NORMAL INSPECTION, NORMOCEPHALIC Additional comments: jaundiced - Eye Exam Eye Exam: EOMI, Normal appearance, PERRL Pupil Exam: NORMAL ACCOMODATION - ENT Exam ENT Exam: Mucous Membranes Moist, Normal Exam - Neck Exam Neck exam: Full Rom, Normal Inspection - Respiratory Exam Respiratory Exam: Clear to PA & Lateral, NORMAL BREATHING PATTERN. absent: Rales, Rhonchi, Wheezes, Respiratory Distress - Cardiovascular Exam Cardiovascular Exam: REGULAR RHYTHM, +S1, +S2. absent: JVD - GI/Abdominal Exam GI & Abdominal Exam: Normal Bowel Sounds, Soft. absent: Guarding, Rebound, Tenderness - Rectal Exam Rectal Exam: Deferred - Extremities Exam Extremities exam: normal capillary refill, normal inspection, pedal edema (1 +) , pedal pulses present - Back Exam Back exam: NORMAL INSPECTION - Neurological Exam Neurological exam: Alert, CN II-XII Intact, Oriented x3, Reflexes Normal - Psychiatric Exam Psychiatric exam: Normal Affect, Normal Mood - Skin Skin Exam: Dry Additional comments: jaundice Discharge Plan - Discharge Medications Prescriptions: Folic Acid 1 mg PO DAILY #30 tab Furosemide [Lasix] 40 mg PO DAILY #30 tablet Pantoprazole [Protonix EC Tab] 40 mg PO BID #60 ect Spironolactone [Aldactone] 25 mg PO BID #60 tab Thiamine [Vitamin B1 Tab] 100 mg PO DAILY #30 tab - Follow Up Plan Condition: IMPROVED Disposition: HOME/ ROUTINE Patient education suggested?: Yes Instructions: Cirrhosis (DC), Ascites (DC), Low Sodium Diet (DC) Referrals: [facility] [place] [Outside]
--- NOTE | 2017-10-02 13:37 | CT ---
Date of Procedure: PROCEDURE: Ultrasound-guided paracentesis, CPT 63425 Medications: 7 cc 1% Lidocaine HISTORY: Ascites, abdominal pain TECHNIQUE: Following informed consent , the patient was placed supine on the stretcher and the site was marked. A limited abdominal ultrasound was performed that showed a large amount of intra-abdominal fluid. Procedural time out was called and the Pt's abdomen was marked and prepped and draped in the usual sterile fashion. Ultrasound-guided large volume paracentesis performed. A total of 3.1 liters of straw colored fluid was removed without complication. IMPRESSION: Ultrasound-guided large volume paracentesis.
== END 2017-10-01 18:10 | disposition home or self-care (01) | DRG 395 ==
LOC: H.ER 14:03 → H.ERHOLD 16:47 → H.ICU/CCU 18:59 → H.TEL 09-30 21:16
PROVIDERS: ADMIT Hospitalist; ATTEND Hospitalist
PROC: 30233N1 Transfusion of Nonautologous Red Blood Cells into Peripheral Vein, Percutaneous Approach (ICD-10-PCS; 2017-09-25)
PROC: 30233K1 Transfusion of Nonautologous Frozen Plasma into Peripheral Vein, Percutaneous Approach (ICD-10-PCS; principal; 2017-09-26)
PROC: 6A550Z2 Pheresis of Platelets, Single (ICD-10-PCS; 2017-09-26)
PROC: 0W9G3ZZ Drainage of Peritoneal Cavity, Percutaneous Approach (ICD-10-PCS; 2017-09-29)
PROC: BW40ZZZ Ultrasonography of Abdomen (ICD-10-PCS; 2017-09-29)
PROC: 0DB68ZX Excision of Stomach, Via Natural or Artificial Opening Endoscopic, Diagnostic (ICD-10-PCS; 2017-10-01)
PROC: 0W9G3ZZ Drainage of Peritoneal Cavity, Percutaneous Approach (ICD-10-PCS; 2017-10-01)
PROC: BW40ZZZ Ultrasonography of Abdomen (ICD-10-PCS; 2017-10-01)
DX: D50.9 Iron deficiency anemia, unspecified (principal); J90 Pleural effusion, not elsewhere classified; D68.9 Coagulation defect, unspecified; E87.2 Acidosis; D69.6 Thrombocytopenia, unspecified; I85.00 Esophageal varices without bleeding; E87.6 Hypokalemia; F10.239 Alcohol dependence with withdrawal, unspecified; J98.11 Atelectasis; K70.31 Alcoholic cirrhosis of liver with ascites; K92.2 Gastrointestinal hemorrhage, unspecified; E86.0 Dehydration; F17.200 Nicotine dependence, unspecified, uncomplicated; I51.7 Cardiomegaly; K44.9 Diaphragmatic hernia without obstruction or gangrene; K25.9 Gastric ulcer, unspecified as acute or chronic, without hemorrhage or perforation; K76.6 Portal hypertension; K31.89 Other diseases of stomach and duodenum; K29.50 Unspecified chronic gastritis without bleeding; B96.81 Helicobacter pylori [H. pylori] as the cause of diseases classified elsewhere; Z88.0 Allergy status to penicillin; Z88.8 Allergy status to other drugs, medicaments and biological substances